=== PATIENT | female | born 1975 ===

== ENCOUNTER 2020-10-10 15:57 | Outpatient (REF) | payer OTHER, SELFPAY ==
[2020-10-10 16:41] LABS: COVID-19 Test Negative (Negative); IDNOW Serial# 55D5AD1C
== END 2020-10-10 15:58 | disposition home or self-care (01) ==
LOC: HO.EMPCOV 15:57
PROVIDERS: PCP Family Medicine; Visit Provider Internal Medicine
DX: Z20.822 Contact with and (suspected) exposure to COVID-19 (principal)
CPT/HCPCS: 36415; 87635; C9803

== ENCOUNTER 2020-10-16 06:45 | Outpatient (REF) | payer OTHER, SELFPAY ==
[2020-10-16 07:16] LABS: COVID-19 Test Negative (Negative); IDNOW Serial# 55D5AD1C
== END 2020-10-16 06:46 | disposition home or self-care (01) ==
LOC: HO.EMPCOV 06:45
PROVIDERS: Visit Provider Internal Medicine
DX: Z20.822 Contact with and (suspected) exposure to COVID-19 (principal)
CPT/HCPCS: 36415; 87635; C9803

== ENCOUNTER 2020-12-17 07:33 | Outpatient (REF) | payer OTHER, SELFPAY ==
[2020-12-17 07:51] LABS: COVID-19 Test Negative (Negative); IDNOW Serial# 55D5AD1C
== END 2020-12-17 07:34 | disposition home or self-care (01) ==
LOC: HO.EMPCOV 07:33
PROVIDERS: Visit Provider Internal Medicine
DX: Z20.822 Contact with and (suspected) exposure to COVID-19 (principal)
CPT/HCPCS: 36415; 87635; C9803

== ENCOUNTER 2021-02-18 08:38 | Outpatient (REF) | payer OTHER, SELFPAY ==
[2021-02-18 09:10] LABS: COVID-19 Test Negative (Negative)
== END 2021-02-18 08:39 | disposition home or self-care (01) ==
LOC: HO.EMPCOV 08:38
PROVIDERS: Visit Provider Internal Medicine
DX: Z20.822 Contact with and (suspected) exposure to COVID-19 (principal)
CPT/HCPCS: 36415; 87635; C9803

== ENCOUNTER 2023-03-21 07:22 | Outpatient (REF) | payer MEDICAID, SELFPAY ==
--- NOTE | ~2023-03-21 | MM_ITS ---
EXAMINATION: MM SCREENING DIGITAL BREAST TOMOSYNTHESIS, BILATERAL CLINICAL INFORMATION: Screening. Asymptomatic. No prior mammography. Age 47. No known family history breast cancer. The lifetime risk of breast cancer based on the Tyrer-Cuzick Model is 8%. COMPARISON: None (current study represents initial baseline exam). TECHNIQUE: Digital breast tomosynthesis is performed in both the craniocaudal and mediolateral oblique views along with computer-aided detection (CAD). Synthesized 2D images are generated from the tomosynthesis. FINDINGS: The breasts are heterogeneously dense, which may obscure small masses (ACR BI-RADS breast composition Category c). Left breast shows no mass or architectural abnormality. Neither breast shows abnormal calcifications. The bilateral axilla and skin contours are unremarkable. Right breast has an oval benign-appearing circumscribed nodule approximately 0.8 x 0.6 cm, central 6:00 position, around 7 cm from nipple. This may represent a cyst. Patient will be recalled for additional targeted ultrasound to fully characterize baseline appearance. MM/MM tomosynthesis screening BI IMPRESSION: Right: -Circumscribed nodule 0.8 cm central 6:00 position, possibly a cyst. Left: -No mammographic evidence of malignancy. ASSESSMENT: BI-RADS 0: Incomplete - Need Additional Imaging Evaluation RECOMMENDATION: 1. Targeted ultrasound right breast. 2. Radiology department staff will contact the patient for additional imaging. This patient's information was entered into a reminder system with a target due date for their next mammogram.
== END 2023-03-21 07:23 | disposition home or self-care (01) ==
LOC: HO.MAMMO 07:22
PROVIDERS: PCP Registered Nurse; Visit Provider Registered Nurse
DX: Z12.31 Encounter for screening mammogram for malignant neoplasm of breast (principal)
CPT/HCPCS: 77063; 77067

== ENCOUNTER 2023-03-26 07:54 | Outpatient (REF) | payer MEDICAID, SELFPAY ==
--- NOTE | ~2023-03-26 | US_ITS ---
EXAMINATION: US DIAGNOSTIC ULTRASOUND BREAST, RIGHT CLINICAL INFORMATION: Recall from baseline mammography for circumscribed nodule 6:00 right breast under 1 cm. COMPARISON: Baseline mammography 03/21/2023. TECHNIQUE: Ultrasound right breast is targeted to the central 6:00 position using grayscale imaging and color Doppler without and with harmonics. FINDINGS: There is an incidental simple cyst 6:00 position 6 cm from nipple measuring approximately 0.7 x 0.5 cm. There is increased through-transmission of sound. Margins are smooth. No associated color flow. No solid mass or architectural abnormality. Results are discussed with the patient at time of visit. US/US breast RT limited IMPRESSION: - Incidental simple cyst mid 6:00 position measuring 0.7 cm. ASSESSMENT: BI-RADS 2: Benign RECOMMENDATION: Routine annual mammography screening. This patient's information was entered into a reminder system with a target due date for their next mammogram.
== END 2023-03-26 07:55 | disposition home or self-care (01) ==
LOC: HO.MAMMO 07:54
PROVIDERS: Visit Provider Registered Nurse
DX: N63.15 Unspecified lump in the right breast, overlapping quadrants (principal)
CPT/HCPCS: 76642

== ENCOUNTER 2024-02-23 16:17 | Emergency (ER) | payer MEDICAID, SELFPAY ==
--- NOTE | ~2024-02-23 | XR_ITS ---
EXAMINATION: XR CHEST CLINICAL INFORMATION: Reason for Exam chest pain / pressure COMPARISON: Chest radiograph 03/23/2019 TECHNIQUE: 2 views of the chest FINDINGS: Lines and tubes: None. Clear lungs. No pleural effusion. No pneumothorax. Normal cardiomediastinal silhouette. Remote left rib fracture deformities, unchanged. XR/XR chest 2V IMPRESSION: * Clear lungs.
--- NOTE | 2024-02-23 16:19 | ECG_ITS ---
Test Reason : CHEST PAIN Blood Pressure : / mmHG Vent. Rate : 087 BPM Atrial Rate : 087 BPM P-R Int : 158 ms QRS Dur : 086 ms QT Int : 354 ms P-R-T Axes : 064 039 064 degrees QTc Int : 425 ms Normal sinus rhythm with sinus arrhythmia Normal ECG When compared with ECG of 28-DEC-2018 20:42, No significant change was found Referred By: Bambi Silva Electronically Signed By:ARLEY CARLSON
[2024-02-23 16:57] VITALS: BP 131/75; PULSE 82; RESP 18; TEMP 36.6; O2SAT 100; BMI 30.8
--- NOTE | 2024-02-23 16:57 | ED.GENADULT ---
HPI - General Adult General Chief complaint: Arrhythmia/Palpitations Stated complaint: chest pain/both arms tingle/feet swollen/sob Source: patient Mode of arrival: ambulatory Limitations: no limitations History of Present Illness ED Provider: Bambi Silva PA-C HPI narrative: Patient is a 48 year old assigned female at with no reported medical history presenting to the emergency department today with palpitations and chest pain. Patient states that she had an episode last week where her heart was racing and she felt intense squeezing in her chest. Patient states that 15 minutes ago she had another episode that was similar. Patient denies any dizziness, lightheadedness, abdominal pain, nausea, vomiting, fever, chills, blurry vision, double vision, loss of vision, difficulty breathing, shortness of breath, back pain, night sweats, pain with urination, increased urinary frequency, increased urinary urgency, blood in her urine or stool, syncope or a near syncopal episode, recent trauma or falls, bowel incontinence, bladder incontinence, bowel retention, bladder retention, or any other complaints at this time. Relieving factors: none Exacerbating factors: none Associated symptoms: chest pain Treatments prior to arrival: none Related Data Allergies Allergy/AdvReac Type Severity Reaction Status Date / Time No Known Allergies Allergy Verified 02/23/24 16:58 Review of Systems Constitutional: Constitutional: Reports no additional constitutional complaints, Denies chills, Denies fever(s) and Denies night sweats Eyes: Eyes: Reports no additional eye complaints, Denies blurry vision, Denies change in vision, Denies diplopia, Denies eye discharge, Denies loss of vision and Denies eye pain ENT: Denies dizziness Cardiovascular: Cardiovascular: Reports no additional cardiovascular complaints, Reports chest pain, Denies lightheadedness, Denies Loss of Consciousness and Denies dyspnea Respiratory: Respiratory: Reports no additional respiratory complaints and Denies dyspnea Gastrointestinal: Gastrointestinal: Reports no additional gastrointestinal complaints, Denies abdominal pain, Denies melena, Denies hematochezia, Denies change in bowel habits and Denies change in stool character Genitourinary: Genitourinary: Denies hematuria, Denies urinary frequency, Denies dysuria, Denies urinary incontinence, Denies urinary hesitancy and Denies urinary urgency Musculoskeletal: Musculoskeletal: Reports no additional musculoskeletal complaints, Denies numbness and Denies tingling Neurologic: Denies dizziness, Denies loss of vision, Denies numbness and Denies tingling Psychiatric: Psychiatric: Reports no additional psychiatric complaints Endocrine: Endocrine: Reports no additional endocrine complaints Hematologic/Lymphatic: Hematologic/Lymphatic: Reports no additional hematologic/lymphatic complaints Allergic/Immunologic: Allergic/Immunologic: Reports no additional allergic/immunologic complaints [facility] Past Medical History Attestation statement: The following information was validated with the patient. Source: old records reviewed and nursing notes reviewed Social History Social History Advance Directives: No Advance Directives Information Provided: No Do you have a plan to hurt others: No Plan Physical Exam ED Vital Signs: Vital Signs - 24 hr 02/23/24 16:57 Temperature 97.8 F Pulse Rate 82 Respiratory Rate 18 Blood Pressure 131/75 Pulse Oximetry 100 Oxygen Delivery Method Room Air BMI result Body Mass Index 30.8 Const General: cooperative, no acute distress, alert and awake Nutritional Appearance: well nourished Orientation/consciousness: patient oriented x3 Limitations: no limitations HENMT Head: Yes normal to inspection and Yes atraumatic Ears: hearing grossly normal bilaterally and external ears normal General nose exam: Normal external nose present, no nasal discharge noted and no epistaxis Face and sinus: Yes normal facial exam, No abrasion and No laceration Mouth: Normal oral and palatal mucosa present, no drooling and no muffled voice Eyes General: appearance normal, both eyes and all related structures Periorbital: periorbital findings normal Eyelids: Yes eyelids normal Conjunctivae: conjunctivae normal Pupils: Equal, round and reactive pupils present EOM: EOMs intact bilaterally Neck Neck: Yes normal visual inspection, Yes full ROM and Yes no lymphadenopathy Chest Chest palpation & inspection: normal inspection of the chest Resp Effort & Inspection: normal respiratory effort and able to speak in complete sentences GI Inspection: Yes normal to inspection Neuro General: patient oriented x3 and moves all extremities Cranial nerves: Yes Equal, round and reactive pupils present Cognition (Neuro): normal cognition Motor exam (neuro): 5/5 motor strength present throughout Sensory Exam: Normal double simultaneous stimulation for sensation Coordination: [id number] test normal Extrem General: Yes normal to inspection, Yes full ROM and Yes capillary refill normal Psych Appearance: grossly normal Mental Status: mental status grossly normal Affect: normal affect Attitude: cooperative Thought process: Normal thought process present Thought content: Normal thought content present Insight: Good insight present (Psych) Course Course Course Narrative: RME performed by Bambi Silva PA-C. Patient is a 48 year old assigned female at presenting to the emergency department with bilateral lower extremity swelling, feeling as thought her chest is being squeezed, dizziness, shortness of breath, and feeling like she was going to pass out. Detailed physical exam and review of systems are deferred to the change booth attendant. EKG, labs, imaging, and swabs ordered. Patient placed back in the waiting room pending room availability and results. Medical Decision Making Medical Decision Making MDM Narrative: Patient is a 48 year old assigned female at with no reported medical history presenting to the emergency department today with chest pain and palpitations. Patient's limited physical exam performed in triage was unremarkable. Patient's blood work was unremarkable. Patient's EKG was unremarkable. Patient's chest x-ray showed no acute process. Patient left the department without completing treatment. Patient left the department before myself or any of the other emergency department clinicians could explain to or review with the patient; physical exam findings, test results, need or lack there of for additional testing, need or lack there of for a procedure to be performed, need or lack there of for hospital admission / transfer, need or lack there of for prescription medication, treatment options, or a treatment plan. Differential Diagnosis Differential Diagnoses: The differential diagnosis associated with the presentation includes Chest pain Palpitations Anxiety NSTEMI STEMI Admission/Observation Consideration of admission/observation: Escalation of care including admission/observation considered Patient would have been admitted to the hospital had she completed her work up and it had any findings where hospital admission was appropriate, her clinical presentation warranted hospital admission, had myself or any other emergency supervisor throwing department had the ability to discuss need or lack there of for hospital admission, and the patient hadn't left the department without completing treatment. Lab Data [facility] Lab Attestation statement: I reviewed the patient's lab results. My interpretation of these results are in the MDM Rationale portion of this note. 02/23/24 17:20 02/23/24 17:20 Labs: Lab Results 02/23/24 Range/Units 17:20 WBC 11.5 H (4.8-10.8) X10*3/uL RBC 4.52 (4.20-5.50) X10*6/uL Hgb 14.6 (12.0-16.0) g/dl Hct 41.6 (37.0-47.0) % MCV 92.0 (80.0-98.0) fL MCH 32.3 (27.0-33.0) pg MCHC 35.1 H (31.0-35.0) g/dl RDW 11.9 (11.0-16.0) % Plt Count 358 (160-400) X10*3/uL MPV 9.1 L (9.4-12.3) fL Immature Gran % (Auto) 0.3 (0.0-0.4) % Neut % (Auto) 55.9 (45-73) % Lymph % (Auto) 35.4 (20-40) % [place] % (Auto) 5.5 (2-11) % Eos % (Auto) 2.6 (0-4) % Baso % (Auto) 0.3 (0-2) % Lymph # (Auto) 4.1 (1.2-4.9) X10*3/uL [place] # (Auto) 0.6 (0.1-1.2) X10*3/uL Eos # (Auto) 0.3 (0.0-0.4) X10*3/uL Baso # (Auto) 0.0 (0.0-0.2) X10*3/uL Abs Immat Gran (auto) 0.03 (0.00-0.03) X10*3/uL Absolute Neuts (auto) 6.4 (2.0-8.3) x10*3/uL Absolute Nucleated RBC 0.000 (0.0-0.012) X10*3/uL Nucleated RBC % (auto) 0.0 (0.0-0.2) /100WBC PT 11.7 (11.1-13.3) SEC INR 1.0 (0.9-1.1) APTT 30.8 (26.0-36.8) SEC Sodium 142 (135-145) mmol/L Potassium 3.5 (3.3-5.1) mmol/L Chloride 108 (96-108) mmol/L Carbon Dioxide 26 (22-29) mmol/L Anion Gap 12 (12-20) BUN 11 (9-16) mg/dL Creatinine 0.82 (0.5-1.4) mg/dL Estim Creat Clear Calc 85.6 Estimated GFR > 60 Random Glucose 103 (60-115) mg/dL Calcium 9.5 (8.4-10.2) mg/dL Magnesium 2.1 (1.6-2.6) mg/dL Total Bilirubin 0.2 (0.0-1.0) mg/dL AST 16 (5-31) U/L ALT 17 (0-31) U/L Alkaline Phosphatase 73 (39-117) U/L Troponin I High Sens < 2.7 (<3.5-17.0) ng/L Total Protein 7.2 (6.5-8.0) g/dL Albumin 4.1 (3.5-5.0) g/dL TSH 1.05 (0.32-4.0) uIU/mL Beta HCG, Quant < 2 mIU/mL Influenza Type A (PCR) NEGATIVE (Negative) Influenza Type B (PCR) NEGATIVE (Negative) RSV RNA Qual (PCR) NEGATIVE (Negative) SARS-CoV-2 RNA (RT-PCR) NEGATIVE (Negative) Independent Interpretation I performed an independent interpretation of an: EKG and Plain X-Ray Interpretation: My interpretation is in agreement with the radiologist's impression of this imaging study. EXAMINATION: XR CHEST CLINICAL INFORMATION: Reason for Exam chest pain / pressure COMPARISON: Chest radiograph 03/23/2019 TECHNIQUE: 2 views of the chest FINDINGS: Lines and tubes: None. Clear lungs. No pleural effusion. No pneumothorax. Normal cardiomediastinal silhouette. Remote left rib fracture deformities, unchanged. XR/XR chest 2V IMPRESSION: * Clear lungs. Dictated By: Shirley Boss MD Signed By: Electronically signed by Shirley Boss MD 02/23/24 1828 Vent. Rate: 087 BPM Atrial Rate: 087 BPM P-R Int: 158 ms QRS Dur: 086 ms QT Int: 354 ms P-R-T Axes: 064 039 064 degrees QTc Int: 425 ms Normal sinus rhythm with sinus arrhythmia Normal ECG When compared with ECG of 28-DEC-2018 20:42, No significant change was found DD/ 1626 Radiology Impression Discussion of test interpretation with radiology: I have reviewed the radiologist's reading. Discharge Plan Discharge Clinical Impression: Palpitations, Chest pain Patient Disposition: Left W/O Completing Treatment Discharge Date/Time: 02/23/24 22:17
[2024-02-23 17:24] LABS: MANUAL DIFF FLAG NO
[2024-02-23 17:28] LABS: Basophils Percent Auto 0.3 % (0-2); Eosinophils Absolute Auto 0.3 X10*3/uL (0.0-0.4); Eosinophils Percent Auto 2.6 % (0-4); Hematocrit 41.6 % (37.0-47.0); Hemoglobin 14.6 g/dl (12.0-16.0); Imm Gran Abs Auto 0.03 X10*3/uL (0.00-0.03); Imm Gran Pct Auto 0.3 % (0.0-0.4); Lymphocytes Absolute Auto 4.1 X10*3/uL (1.2-4.9); Lymphocytes Percent Auto 35.4 % (20-40); Mean Corpuscular HGB Conc 35.1 g/dl (31.0-35.0); Mean Corpuscular Hemoglobin 32.3 pg (27.0-33.0); Mean Platelet Volume 9.1 fL (9.4-12.3); Monocytes Absolute Auto 0.6 X10*3/uL (0.1-1.2); Monocytes Percent Auto 5.5 % (2-11); Neutrophils Absolute Auto 6.4 x10*3/uL (2.0-8.3); Neutrophils Percent Auto 55.9 % (45-73); Platelet Count 358 X10*3/uL (160-400); Red Blood Count 4.52 X10*6/uL (4.20-5.50); Red Cell Distribution Width 11.9 % (11.0-16.0); White Blood Count 11.5 X10*3/uL (4.8-10.8)
[2024-02-23 17:35] LABS: Prothrombin Time 11.7 SEC (11.1-13.3)
[2024-02-23 17:38] LABS: Partial Thromboplastin Time 30.8 SEC (26.0-36.8)
[2024-02-23 17:50] LABS: Alanine Aminotransferase 17 U/L (0-31); Albumin Level 4.1 g/dL (3.5-5.0); Alkaline Phosphatase 73 U/L (39-117); Anion Gap 12 (12-20); Aspartate Amino Transferase 16 U/L (5-31); Bilirubin Total 0.2 mg/dL (0.0-1.0); Blood Urea Nitrogen 11 mg/dL (9-16); Calcium 9.5 mg/dL (8.4-10.2); Carbon Dioxide 26 mmol/L (22-29); Chloride 108 mmol/L (96-108); Creatinine Clr Calc Pharmacy 85.6; Estimated Glomerular Filt Rate > 60; Glucose Random 103 mg/dL (60-115); Magnesium 2.1 mg/dL (1.6-2.6); Potassium 3.5 mmol/L (3.3-5.1); Sodium 142 mmol/L (135-145); Total Protein 7.2 g/dL (6.5-8.0)
[2024-02-23 17:53] LABS: Troponin-I High Sensitivity < 2.7 ng/L (<3.5-17.0)
[2024-02-23 18:07] LABS: HCG Quantitative < 2 mIU/mL; TSH reflex Free T4 1.05 uIU/mL (0.32-4.0)
[2024-02-23 18:08] LABS: Influenza A PCR NEGATIVE (Negative); Influenza B PCR NEGATIVE (Negative); Resp Syncy Virus RNA Qual PCR NEGATIVE (Negative); SARS COV2 PCR INHOUSE NEGATIVE (Negative)
--- NOTE | 2024-02-23 20:30 | PC.NURSE ---
No answer in the WR @ 2029.
== END 2024-02-23 22:17 | disposition left against medical advice (07) ==
LOC: HO.ED 22:10
PROVIDERS: Physician Assistant Medical; Emergency Provider Emergency Medicine
DX: R00.2 Palpitations (principal); R07.9 Chest pain, unspecified; Z03.818 Encounter for observation for suspected exposure to other biological agents ruled out
CPT/HCPCS: 0241U; 71046; 80053; 83735; 84443; 84484; 84702; 85025; 85610; 85730; 93005; 99283

== ENCOUNTER → 2024-02-23 16:19 | Outpatient (BNV) | payer MEDICAID, SELFPAY | PROVIDERS: Emergency Provider Emergency Medicine; Visit Provider Internal Medicine | DX: R07.9 Chest pain, unspecified (principal) | CPT/HCPCS: 93010 ==

== ENCOUNTER 2024-06-02 12:50 | Outpatient (AMB) | payer MEDICAID, SELFPAY ==
--- NOTE | 2024-06-02 12:51 | A.OFFVIS_ITS ---
Vital Signs 06/02/24 12:52 Height 5 ft 4 in Intake Visit Reasons: Hemorrhoids Intake Note: This patient presents for hemorrhoids, Pt c/o; Onset 3 weeks, reports pain, reports no rectal bleeding. 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 She says that she has had this lump outside her anus for about 3 weeks now. She says that she was not aware about having hemorrhoids in the past. She says that this lump was tender and painful at that time. She does not notice any blood per rectum She says that this ?lump? has persisted. However, she does notice that her pain has significantly improved. [facility] Medical History Thrombosed external hemorrhoid Surgical History H/O tubal ligation H/O section Review of Systems Const Denies chills and Denies fever(s) Card Denies chest pain, Denies dyspnea and Denies dyspnea on exertion Resp Denies cough, Denies dyspnea and Denies dyspnea on exertion GI Denies hematochezia and Denies change in bowel habits Denies hematuria Musc Denies back pain and Denies limited range of motion Neuro Denies focal weakness and Denies convulsions Psych Denies depression and Denies mood swings Physical Exam Const General: comfortable and no acute distress Orientation/consciousness: patient oriented x3 Neck Neck: Yes no lymphadenopathy Resp Auscultation: clear to auscultation bilaterally Cardio Rhythm: regular rhythm GI Other: Rectal exam shows a thrombosed external hemorrhoid about 1.2 cm on the left Palpation (GI): Soft to palpation, nontender and no guarding Neuro General: patient oriented x3 Office Procedures Anoscopy He was in yaw-knife position. The anoscope was gently inserted. A full examination of the anal canal was done. There were no significant anal canal lesions. There was no ulceration, no fissure, no bleeding He has no induration on digital exam There was note of a thrombosed external hemorrhoid, about 1.2 cm on the left distal anoderm [id number] Assessment & Plan Assessment & Plan (1) Thrombosed external hemorrhoid: Code(s): K64.5 - Perianal venous thrombosis Category: Medical Plan: She has this lump outside her anus and examination reveals a thrombosed external hemorrhoid. I told her that I would expect this to resorb on its own. I have instructed her to continue doing hot Sitz baths. She can take NSAIDs p.r.n. for pain as this will help with inflammation as well I will see her again in the office in about 2 weeks. She does understand the option of hemorrhoidectomy if this does not improve She is to avoid straining and constipation as well. She is comfortable with the plan Coding Level of Care Code New Pt Level 3 (38843) Diagnoses Thrombosed external hemorrhoid K64.5 CPT Codes Details - CPT: 81631-[id number] ([id number])
== END 2024-06-02 14:09 | disposition home or self-care (01) ==
PROVIDERS: PCP Registered Nurse; Visit Provider Surgery
DX: K64.8 Other hemorrhoids (principal)
CPT/HCPCS: 46600; 99203

== ENCOUNTER → 2024-06-02 12:50 | Outpatient (BNVA) | payer MEDICAID, SELFPAY | PROVIDERS: PCP Registered Nurse; Visit Provider Surgery | DX: K64.5 Perianal venous thrombosis (principal) | CPT/HCPCS: 46600; 99202 ==

== ENCOUNTER 2024-06-14 08:41 | Outpatient (REF) | payer MEDICAID, SELFPAY ==
--- NOTE | ~2024-06-14 | MM_ITS ---
EXAMINATION: MM SCREENING DIGITAL BREAST TOMOSYNTHESIS, BILATERAL CLINICAL INFORMATION: Screening. Asymptomatic. COMPARISON: Mammography: Comparison is made with available priors TECHNIQUE: Digital breast mammography with tomosynthesis is performed in both the craniocaudal and mediolateral oblique views along with computer-aided detection (CAD). FINDINGS: There are scattered areas of fibroglandular density (ACR BI-RADS breast composition Category b). Bilateral circumscribed oval masses which wax and wane consistent with benign fibrocystic changes and cysts. Some are demonstrated to be simple cyst on prior ultrasounds. There are no significant masses, abnormal calcifications, or other abnormalities. MM/MM tomosynthesis screening BI IMPRESSION: No mammographic evidence of malignancy. ASSESSMENT: BI-RADS BI-RADS 2 - Benign Findings RECOMMENDATION: Routine annual mammography screening. 1 year F/U This examination should not preclude the clinical evaluation of a suspicious palpable abnormality. This patient's information was entered into a reminder system with a target due date for their next mammogram. Electronically signed by: Jasmin Koo DO 06/27/2024 03:54 PM EDT
== END 2024-06-14 08:42 | disposition home or self-care (01) ==
LOC: HO.MAMMO 08:41
PROVIDERS: PCP Registered Nurse; Visit Provider Registered Nurse
DX: Z12.31 Encounter for screening mammogram for malignant neoplasm of breast (principal)
CPT/HCPCS: 77063; 77067

== ENCOUNTER → 2024-06-14 08:45 | Outpatient (BNV) | payer MEDICAID, SELFPAY | PROVIDERS: PCP Registered Nurse; Visit Provider Internal Medicine | DX: Z12.31 Encounter for screening mammogram for malignant neoplasm of breast (principal) | CPT/HCPCS: 77063; 77067 ==

== ENCOUNTER 2024-06-29 08:49 | Outpatient (AMB) | payer MEDICAID, SELFPAY ==
--- NOTE | 2024-06-29 08:53 | A.OFFVIS_ITS ---
Vital Signs 06/29/24 08:59 Height 5 ft 4 in Weight 179 lb BMI 30.7 BP 110/56 L Blood Pressure Location Rt brachial Position Sitting Pulse 80 Intake Visit Reasons: s/p anoscopy 3 week follow up Intake Note: This patient presents for three week follow-up for hemorrhoids. Pt c/o; reports feels improvements since last visit. 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 I had advised her on doing hot Sitz baths and anti-inflammatories. She now says she feels much better. She says that her large external hemorrhoid has decreased in size significantly. She is able to sit down comfortably. She denies any severe pain. [facility] Medical History Thrombosed external hemorrhoid Surgical History H/O tubal ligation H/O section Review of Systems Const Denies chills and Denies fever(s) Card Denies chest pain Resp Denies cough GI Denies abdominal pain Physical Exam Vital Signs: Last Vital Signs Pulse 80 06/29/24 08:59 BP 110/56 L 06/29/24 08:59 BMI result Body Mass Index 30.7 Const General: comfortable and no acute distress Resp Effort & Inspection: normal respiratory effort GI Other: Rectal exam shows a small external hemorrhoid on the left and a smaller 1 on the right with no tenderness, no inflammatory changes Assessment & Plan Assessment & Plan (1) Thrombosed external hemorrhoid: Code(s): K64.5 - Perianal venous thrombosis Category: Medical Plan: This has improved significantly. She does not have any significant tenderness anymore nor pain. The size has decreased markedly. I explained to her that if she has problems or concerns with regards to her hemorrhoids down the line, she is welcome to come back to the office to be re- evaluated. She is comfortable with this plan. I also advised her on avoiding straining and constipation. Coding Level of Care Code Est Pt Level 2 (56656) Diagnoses Thrombosed external hemorrhoid K64.5
[2024-06-29 08:59] VITALS: BP 110/56; PULSE 80; BMI 30.7
== END 2024-06-29 09:20 | disposition home or self-care (01) ==
PROVIDERS: PCP Registered Nurse; Referring Provider Registered Nurse; Visit Provider Surgery
DX: K64.5 Perianal venous thrombosis (principal)
CPT/HCPCS: 99212

== ENCOUNTER → 2024-06-29 08:49 | Outpatient (BNVA) | payer MEDICAID, SELFPAY | PROVIDERS: PCP Registered Nurse; Visit Provider Surgery | DX: K64.5 Perianal venous thrombosis (principal) | CPT/HCPCS: 99212 ==

== ENCOUNTER 2024-07-28 11:02 | Outpatient (AMB) | payer MEDICAID, SELFPAY ==
--- NOTE | 2024-07-28 11:05 | A.OFFVIS_ITS ---
Vital Signs 07/28/24 11:11 Height 5 ft 4 in Weight 185 lb BMI 31.8 BP 115/55 L Blood Pressure Location Rt brachial Position Sitting Pulse 79 Intake Visit Reasons: colon CA screening Intake Note: This patient presents for colonoscopy screening. Pt c/o; reports never had a colonoscopy before, reports no rectal bleeding or pain. 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 She denies any significant GI complaints. She denies a family history of colon cancer. He has never had any colonoscopy in the past. [facility] Medical History (Updated 07/28/24 @ 11:19 by Enmanuel Zambrano MD) Colon cancer screening History of pulmonary embolus (PE) (~03/2010) Nicotine dependence, cigarettes, uncomplicated Thrombosed external hemorrhoid Surgical History History of tubal ligation History of Social History (Updated 07/28/24 @ 11:13 by NAKIA Allen) Alcohol intake: never Patient Tobacco Use Status: Never used Tobacco Review of Systems Const Denies chills and Denies fever(s) Card Denies chest pain, Denies dyspnea and Denies dyspnea on exertion Resp Denies cough, Denies dyspnea and Denies dyspnea on exertion GI Denies hematochezia and Denies change in bowel habits Denies hematuria Musc Denies back pain and Denies limited range of motion Neuro Denies focal weakness and Denies convulsions Psych Denies depression and Denies mood swings Physical Exam Vital Signs: Last Vital Signs Pulse 79 07/28/24 11:11 BP 115/55 L 07/28/24 11:11 BMI result Body Mass Index 31.8 Const General: comfortable and no acute distress Orientation/consciousness: patient oriented x3 Neck Neck: Yes no lymphadenopathy Resp Auscultation: clear to auscultation bilaterally Cardio Rhythm: regular rhythm GI Palpation (GI): Soft to palpation, nontender and no guarding Neuro General: patient oriented x3 Assessment & Plan Assessment & Plan (1) Colon cancer screening: Code(s): Z12.11 - Encounter for screening for malignant neoplasm of colon Category: Medical Plan: I explained to her the technique of colonoscopy for screening. I reviewed the risks including but not limited to bleeding, perforation, as well as the benefits and alternatives. She understands and wants to proceed. She seems to present with average risk for colon cancer. Coding Level of Care Code Est Pt Level 3 (42818) Diagnoses Colon cancer screening Z12.11
[2024-07-28 11:11] VITALS: BP 115/55; PULSE 79; BMI 31.8
== END 2024-07-28 11:41 | disposition home or self-care (01) ==
PROVIDERS: PCP Registered Nurse; Visit Provider Surgery
DX: Z12.11 Encounter for screening for malignant neoplasm of colon (principal)
CPT/HCPCS: 99213

== ENCOUNTER → 2024-07-28 11:02 | Outpatient (BNVA) | payer MEDICAID, SELFPAY | PROVIDERS: PCP Registered Nurse; Visit Provider Surgery | DX: Z12.11 Encounter for screening for malignant neoplasm of colon (principal) | CPT/HCPCS: 99212 ==

== ENCOUNTER 2024-08-12 10:12 | Outpatient (AMB) | payer MEDICAID, SELFPAY ==
--- NOTE | 2024-08-12 07:42 | MHC.OFFVIS ---
Intake Visit Reasons: Current Smoker Allergies No Known Allergies Allergy (Verified 07/28/24 11:12) HPI HPI Current Smoker: Details: Initial visit for this 49yo smoker with a 45PYH. Patient started smoking at age 12 for 37 years at 1-1.5ppd. Now at 1/2ppd. . Denies marijuana use. Denies second hand smoke exposure. Denies exposure to chemicals or substances like asbestos. . Denies known family history of lung cancer. Denies personal history of cancers. Denies chest CT in last year. . Denies recent travel outside the [place]. Denies recent recent hospitalization for respiratory issues. Reports testing positive for COVID. Denies receiving COVID Vaccine. . Recently treated for persumptive Whooping cough. Completed antibiotics. 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 Reports chronic history of multiple episodes of pneumonia. Denies fever, chills, new/worsening cough, hemoptysis, hoarseness or dysphagia. Denies significant chest pain, significant dyspnea or unintentional weight loss. Patient Lung Cancer Screening Questionnaire reviewed with patient by provider. . Shared Decision Making Completed. Patient meets criteria. Discussed in detail with patient, the risk vs benefit of LDCT screening. Patient consents to proceed with scan. Discussed smoking cessation. [facility] Medical History (Updated 08/12/24 @ 09:47 by Bobbi Holcomb PA-C) Colon cancer screening History of pulmonary embolus (PE) (~03/2010) Nicotine dependence, cigarettes, uncomplicated Thrombosed external hemorrhoid Surgical History History of tubal ligation History of Social History (Updated 08/12/24 @ 09:48 by Bobbi Holcomb PA-C) Alcohol intake: never Patient Tobacco Use Status: Current everyday Tobacco user Cigarettes Per Day: 10 Years Smoked: (onset 12yo, 1-1.5ppd x 37yrs, now1/2ppd - 45pyh) Telehealth Telehealth Telehealth Platform: Telephone Location of provider rendering services: practice address Location of patient: address on file Patient Identification confirmed using: Name, : Yes Telehealth method: voice only Patient verbally consented to treatment: Yes Patient verbally consented to billing insurance company: Yes Patient informed of any privacy concerns related to visit: Yes Minutes spent on Phone/Video with Pt.: 15 Assessment & Plan Assessment & Plan (1) Nicotine dependence, cigarettes, uncomplicated: Comment: (onset 12yo, 1-1.5ppd x 37yrs, now1/2ppd - 45pyh) Code(s): F17.210 - Nicotine dependence, cigarettes, uncomplicated Category: Medical Plan: - SDM visit completed today in office. - Patient meets criteria for LDCT for lung cancer screening purposes and is asymptomatic. - Smoking cessation counseling offered. Patients can always call [phone]. - Will arrange for a LDCT scan of the chest for screening purposes at [facility]. - Risks, benefits, and alternatives were discussed in detail and the patient agrees to proceed. - Risks discussed include but are not limited to: radiation exposure, anxiety during testing and while awaiting results, false negatives, false positives and possibility of additional intervention such as further imaging or surgical procedures for benign disease. - Benefits are obviously detection of lung cancer at an early stage which can lead to improved outcomes. - Discussed the importance of screening program compliance with adherence to yearly LDCT scan as scheduled - or sooner interval scans for personalized screening regimen. - Discussed follow up plan. Our office will send a letter discussing results and if needed set up phone call and office visit based on CT findings. - Patient educated on results categorization and the management decisions for suspicious findings potentially found on the screening LDCT scan. Any patient with a Lung RADS score of 3 or 4 will be reviewed by a multidisciplinary team at [facility] to form a plan of action in regards to scan findings. - If further work up is warranted for a suspicious lung finding this will be followed by the Lung Cancer Screening program in conjunction with the Thoracic Surgery Department at [facility]. - A copy of the office note and LDCT will be sent to the patient's PCP - as well as documentation on any associated further plans of care. - Incidental findings on LDCT are the PCP's responsibility. These findings are indicated with an S finding on the LDCT Assessment. A note discussing the findings will be sent to the PCP who is then responsible for further management. - All questions answered.? Coding Level of Care Code Lung Cancer Screening G0296 Diagnoses Nicotine dependence, cigarettes, uncomplicated F17.210
== END 2024-08-12 10:12 | disposition home or self-care (01) ==
LOC: HO.HPS 10:12
PROVIDERS: PCP Registered Nurse; Visit Provider Physician Assistant Medical
DX: F17.210 Nicotine dependence, cigarettes, uncomplicated (principal)
CPT/HCPCS: G0296

== ENCOUNTER → 2024-08-12 10:12 | Outpatient (BNVA) | payer MEDICAID, SELFPAY | PROVIDERS: PCP Registered Nurse; Visit Provider Physician Assistant Medical | DX: F17.210 Nicotine dependence, cigarettes, uncomplicated (principal) | CPT/HCPCS: G0296 ==

== ENCOUNTER 2024-11-29 16:40 | Outpatient (REF) | payer MEDICAID, SELFPAY ==
--- NOTE | ~2024-11-29 | CT_ITS ---
CLINICAL HISTORY: F17.210 - Nicotine dependence, cigarettes, uncomplicated CT lung cancer screening (LDCT) Comparison: CR/SR - XR CHEST 2V - 02/23/24 17:02 EDT Technique: Axial CT images of the chest using low-dose technique. Referring provider counseled the patient on shared decision-making for LDCT screening. Additional counseling was provided on smoking cessation. Effective radiation dose total: DLP 38.3 mGycm, CTDIvol 1.1 mGy. Findings: Lung: Calcified granuloma in the posterior right lung apex. Mild biapical scarring. Few regions of minimal subpleural scarring both lungs. No discrete lung nodule. No appreciable endobronchial nodule. No consolidation, pleural effusion or pneumothorax. Thoracic inlet intact. No apparent thyroid nodule. No adenopathy. Heart size normal. No coronary artery calcification. No acute process evident upper abdomen. Impression: Lung rads 1. Normal. Management: Continue annual screening. Category 1: Normal; continue annual screening Category 2: Benign appearance or behavior, continue annual screening Category 3: Probably benign, [address] recommended Category 4A: Suspicious, [address] recommended; may consider PET/CT Category 4B: Suspicious, Additional diagnostics and/or tissue sampling recommended Category 4X: Suspicious, Additional diagnostics and/or tissue sampling recommended Category 0: Recalls (incomplete screen due to Incomplete coverage, Noise, Respiratory motion, Expiration, Obscured by acute abnormality) This document has been electronically signed by: Uche Drew MD on 11/30/2024 13:04:41
--- OUTSIDE RECORDS SUMMARY | 2024-11-29 20:17 | XMS_ITS | Clinical Summary ---
Author Organization [employer] Address [address] [place] [address] Care Team Providers Care Wet Sander Name Role Phone Breana Raphael FDIEL Primary Care Provider [phone] Allergies No known active allergies Medications amoxicillin (Amoxil) 500 MG capsule Take 1 tab po bid for 10 days 20 capsule 4 Active nicotine (Nicoderm CQ) 14 MG/24HR patchIndications: Cigarette nicotine dependence without complication Place 1 patch on the skin 1 (one) time each day at the same time. 42 patch 4 Active albuterol 108 (90 Base) MCG/ACT inhaler Inhale 2 puffs every 4 (four) hours if needed for wheezing or shortness of breath. 18 g 1 4 09/06/20 25 Active azithromycin (Zithromax Z-Fritz) 250 MG tablet Take 2 tablets once on day 1, then 1 tablet 1x/day for 4 days. 6 tablet 4 Active acetaminophen (Tylenol) 500 MG tablet Take 2 tablets (1,000 mg) by mouth every 6 (six) hours if needed for moderate pain or fever. 40 tablet 4 Active Active Problems Problem Noted Date Diagnosed Date Persistent dry cough 07/19/2024 Assessment & Plan (07/19/2024 9:13 AM EDT): Flu, COVID and Strep negative. Episodes of coughing fits, with cough lasting >3 weeks. Likely exacerbated by tobacco dependence. -No evidence of respiratory distress. Symptoms mild. -No evidence of dehydration. -Supportive care advised. -Isolation recommendations discussed. -ER precautions discussed. -Seek medical attention for worsening symptoms. Bacterial sinusitis 07/19/2024 Assessment & Plan (07/19/2024 9:16 AM EDT): Moderate congestion and runny nose with onset over a month ago with recent recurrence. Likely bacterial sinusitis based on exam and sxs. Will treat with -amoxicillin 500mg bid for 10 days -droplet precautions discussed -supportive care discussed -ER precautions given Healthcare maintenance 06/24/2024 Overview (06/26/2024): Last PE: 06/24/24 Colonoscopy: Referral to Dr. Zambrano at [facility] in May 2024 Pap: Last ~2009, denies hx of abnormal paps. Due Mammo: February 2023 (simple cyst), annual screening LDCT: ordered May 2024 Nicotine dependence 09/07/2017 Assessment & Plan (07/19/2024 9:17 AM EDT): Discussed and encouraged decreasing smoking. -recommended chantix. Assessment & Plan (06/26/2024 5:46 PM EDT): -Cigg/day: 10 cigg/day (max 30 cigg/day) -Age started: 12 y/o -Total years smoking: approx 37 years -Pack year history: > 20 -Encouraged smoking cessation resources, NRT patches were not helpful for her in the past -Referred to [facility] LDCT for lung CA screening 06/24/24 Assessment & Plan (02/05/2023 11:09 AM EDT): ?? Typically 6-12 cigg/day (depends on stress level) ?? Discussed available smoking cessation resources through [facility] Encounters Date Type Department Care Team Description 09/06/2024 10:00 AM EST Office Visit [facility] [address] [place] [address] Douglas Boyd MD Influenza-like symptoms (Primary Dx); Viral URI from Last 3 Months Immunizations Name Administration Dates Next Due Hep B, adult 02/09/2006 TD (adult), 2 Lf tetanus tox oid, preservative free, adsorbed 02/09/2006 Family History Medical History Relation Name Comments Schizophrenia Brother Diabetes Father Heart failure Paternal Grandmother Thyroid cancer Sister Relation Name Status Comments Brother Father Paternal Grandmother Sister Social History Tobacco Use Types Packs/Day Years Used Date Smoking Tobacco: Every Day Cigarettes Smokeless Tobacco: Never Tobacco Cessation:Ready to Q uit: Not Asked; Counseling Given: Not Answered Alcohol Use Standard Drinks/Week Comments Yes 0 (1 standard drink = 0.6 oz pur e alcohol) Occasionally Depression Answer Date Recorded Patient Health Questionnaire-9 Score 11 06/24/2024 Patient Health Questionnaire-9 Score 11 06/24/2024 Last PHQ-9: Questionnaire Data Not on file 0 06/24/2024 Housing Stability Answer Date Recorded What is your housing situation today? I have housing today, but I am worried about losing housing in the future 06/24/[address] you li ve. Do you have problems with any of the following? None of the above 06/24/2024 Food Insecurity Answer Date Recorded Within the past 12 months, y ou worried that your food would run out before you got money to buy more: Often true 06/24/2024 Within the past 12 months,th e food you bought just didn't last and you didn't have enough money to get more: Often true Transportation Answer Date Recorded In the past 12 months, has l ack of transportation kept you from medical appts, meetings, work or from getting things needed for daily living? No 06/24/2024 Utilities Answer Date Recorded In the past 12 months, has t he electric, gas, oil or water company threatened to shut off services in your home? I am not sure 06/24/2024 Depression Answer Date Recorded Patient Health Questionnaire-2 Score 6 06/24/2024 Internet Access Answer Date Recorded Internet Access Q1 Yes 06/24/2024 Internet Access Q2 Not on file 06/24/2024 Comments Unknown Sex and Gender Information Value Date Recorded Sex Assigned at Female 07/28/2022 10:17 AM EDT Legal Sex Female 10:17 AM EDT Gender Identity Female 07/28/2022 10:17 AM EDT Sexual Orientation Straight 07/28/2022 10 :17 AM EDT Last Filed Vital Signs Vital Sign Reading Time Taken Comments Blood Pressure 107/76 09/06/2024 10:06 AM EST Pulse 84 09/06/2024 10:06 AM EST Temperature 36.7 ??C (98.1 ??F) 09/06/2024 10:[address] Respiratory Rate 17 09/06/2024 10:06 AM EST Oxygen Saturation 99% 09/06/2024 10:06 AM EST Inhaled Oxygen Concentration - - Weight 83.9 kg (185 lb) 09/06/2024 10:06 AM EST Height 159.7 cm (5' 2.88 ) 06/24/2024 2:54 PM ED T Body Mass Index 32.9 06/24/2024 2:54 PM EDT Plan of Treatment Health Maintenance Due Date Last Done Comments CT Colonography 1974 Colonoscopy 1974 Colorectal Cancer Screening 1974 Dental Oral Exam 1974 Dental X-Ray: Full Mouth 1974 FIT DNA/Cologuard 1974 FIT 1974 FOBT 1974 HIV Screening 1974 Lipid Panel 1974 Sigmoidoscopy 1974 Family Planning (PISQ) 1989 Hepatitis C Screening 1992 Hepatitis A Vaccines (1 of 2 - Risk 2-dose series) 1993 Pneumococcal Vaccine: 50+ Years (1 of 2 - PCV) 1993 Pap Smear 1995 Cervical Cancer Screening 2004 HPV/Cotest 2004 DTaP/Tdap/Td Vaccines (1 - Tdap) 02/10/2006 02/09/2006 Hepatitis B Vaccines (2 of 3 - 19+ 3-dose series) 03/09/2006 02/09/2006 Dental Prophylaxis 07/24/2023 01/21/2023 Dental X-Ray: Bitewings 01/23/2024 01/21/2023 Zoster Vaccines (1 of 2) 2024 COVID-19 Vaccine (1 - 2023-2 5 season) 2024 Influenza Vaccine (#1) 2024 Depression Monitoring (PHQ-9) 12/22/2024, 06/24/2024 Mammogram 06/14/2025 06/14/2024, 03/26/2023, 03/21/2023 Alcohol/Substance Use Screening 06/24/2025 06/24/2024 Depression Screening 06/24/2025 06/24/2024, 06/24/2024 SDOH Screening 06/24/2025 06/24/2024 Tobacco Screening 09/06/2025 09/06/2024 RSV Patients and Patients Aged 60 years or older (1 - 1-dose 75+ series) 2049 HIB Vaccines Aged Out No longer eligi ble based on patient's age to complete this topic HPV Vaccines Aged Out No longer eligi ble based on patient's age to complete this topic IPV Vaccines Aged Out No longer eligi ble based on patient's age to complete this topic Meningococcal Vaccine Aged Out No mik serjio eligible based on patient's age to complete this topic RSV under 20 months Aged Out No longe r eligible based on patient's age to complete this topic Rotavirus Vaccines Aged Out No longer eligible based on patient's age to complete this topic Procedures Procedure Name Priority Date/Time Associated Diagnosis Comments POCT INFLUENZA B (ID NOW RAPID MOLECULAR) Routine 09/06/2024 10:22 AM EST Viral URI POCT INFLUENZA A (ID NOW RAPID MOLECULAR) Routine 09/06/2024 10:22 AM EST Viral URI POCT RAPID STREP A Routine 09/06/2024 10 :22 AM EST Viral URI POCT RAPID COVID ANTIGEN Routine 09/06/2024 10:22 AM EST Viral URI BI MAMMOGRAM SCREENING TOMOSYNTHESIS BILATERAL Routine 06/14/2024 8:45 AM EDT PROPHYLAXIS - ADULT Routine 01/21/2023 4 :00 PM EDT Encounter for dental examination Periodontal disease BITEWINGS - 2 RADIOGRAPHIC IMAGES Routine 01/21/2023 4:00 PM EDT Encounter for dental examination Periodontal disease from Last 3 Months or Most Recently Relevant to Health Maintenance Results * Influenza B (ID NOW Rapid Molecular) (09/06/2024 10:22 AM EST) Influenza B Negative Negative, Indeterminate [facility] Swab 09/06/2024 10:2 2 AM EST us Douglas Boyd MD POINT OF CARE TEST ENTER/EDIT OR DERABLES Final Result Performing Organization Address [facility] Co de Phone Number [facility] [address] [place] [phone] * Influenza A (ID NOW Rapid Molecular) (09/06/2024 10:22 AM EST) Influenza A Negative Negative, Indeterminate [facility] Swab 09/06/2024 10:2 2 AM EST us Douglas Boyd MD POINT OF CARE TEST ENTER/EDIT OR DERABLES Final Result Performing Organization Address [facility] Co de Phone Number [facility] [address] [place] [phone] * POCT Rapid COVID Ag (09/06/2024 10:22 AM EST) Rapid COVID Ag Negative [facility] Swab 09/06/2024 10:2 2 AM EST us Douglas Boyd MD POINT OF CARE TEST ENTER/EDIT OR DERABLES Final Result Performing Organization Address [facility] Co de Phone Number [facility] [address] [place] [phone] * POCT rapid strep A manually resulted (09/06/2024 10:22 AM EST) Rapid Strep A Screen Negative Negative, None Detected [facility] Swab 09/06/2024 10:2 2 AM EST us Douglas Boyd MD POINT OF CARE TEST ENTER/EDIT OR DERABLES Final Result Performing Organization Address [facility] Co de Phone Number [facility] [address] [place] [phone] * BI Mammogram Screening Tomosynthesis Bilateral (06/14/2024 8:45 AM EDT) Anatomical Region Laterality Modality Breast Bilateral Mammography 06/14/2024 8:45 AM EDT Narrative 06/27/2024 3:57 PM EDT ? [facility] ? [address] ?[place] [address] ? Mammography Report ? Signed ? Patient: Leanne Vega ?MR#: [id number] ?? 45 ? : 1975 ?Acct:[id number] ? Age/Sex: 49 / F ?ADM Date: 06/14/24 ? Loc: HO.MAMMO ? Attending Dr: Breana Raphael CONTRACT ANALYST ? Ordering Physician: Breana Raphael CONTRACT ANALYST ?Results: 2Benig ?? n Findings ? Date of Service: 06/14/24 ?Follow Up: 1 Year From Orig ?? inal Mammogram ? Procedure(s): MM tomosynthesis screening BI ?? Accession Number(s): [id number] ? cc: Breana Raphael CONTRACT ANALYST ? EXAMINATION: ?? MM SCREENING DIGITAL BREAST TOMOSYNTHESIS, BILATERAL ? CLINICAL INFORMATION: ? Screening. Asymptomatic. ? COMPARISON: ?? Mammography: Comparison is made with available priors ? TECHNIQUE: ?? Digital breast mammography with tomosynthesis is performed in both the ?? craniocaudal and mediolateral oblique views along with computer-aided ?? detection (CAD). ? FINDINGS: ?? There are scattered areas of fibroglandular density (ACR BI-RADS breast ?? composition Category b). ?? Bilateral circumscribed oval masses which wax and wane consistent with ?? benign fibrocystic changes and cysts. Some are demonstrated to be ?? simple cyst on prior ultrasounds. ?? There are no significant masses, abnormal calcifications, or other ?? abnormalities. ? MM/MM tomosynthesis screening BI ?? IMPRESSION: ?? No mammographic evidence of malignancy. ? ASSESSMENT: ? BI-RADS BI-RADS 2 - Benign Findings ? RECOMMENDATION: ?? Routine annual mammography screening. ? 1 year F/U ? This examination should not preclude the clinical evaluation of a ?? suspicious palpable abnormality. ? This patient's information was entered into a reminder system with a ?? target due date for their next mammogram. ? Electronically signed by: ??Jasmin Koo DO ??06/27/2024 03:54 PM EDT ? Dictated By: ?Jasmin Koo DO ? Signed By: ?<Electronically signed by Jasmin Koo, DO in OV> ? 06/27/24 1554 ? DD/ 0845 ? TD/TT: 06/14/24 0900 ? Brick Or Block Maker: ? Procedure Note Karen, Image - 06/27/2024 [facility] [address] [place] [address] Mammography Report Signed Patient: Leanne Vega CMR#: [id number] 45 : 1975Acct:[id number] Age/Sex: 49 / FADM Date: 06/14/24 Loc: [facility] Attending Dr: Breana Raphael CONTRACT ANALYST Ordering Physician: Breana Raphael FNPResults: 2Benig n Findings Date of Service: 06/14/24Follow Up: 1 Year From Orig inal Mammogram Procedure(s): MM tomosynthesis screening BI Accession Number(s): [id number] cc: Breana Raphael CONTRACT ANALYST EXAMINATION: MM SCREENING DIGITAL BREAST TOMOSYNTHESIS, BILATERAL CLINICAL INFORMATION: Screening. Asymptomatic. COMPARISON: Mammography: Comparison is made with available priors TECHNIQUE: Digital breast mammography with tomosynthesis is performed in both the craniocaudal and mediolateral oblique views along with computer-aided detection (CAD). FINDINGS: There are scattered areas of fibroglandular density (ACR BI-RADS breast composition Category b). Bilateral circumscribed oval masses which wax and wane consistent with benign fibrocystic changes and cysts. Some are demonstrated to be simple cyst on prior ultrasounds. There are no significant masses, abnormal calcifications, or other abnormalities. MM/MM tomosynthesis screening BI IMPRESSION: No mammographic evidence of malignancy. ASSESSMENT: BI-RADS BI-RADS 2 - Benign Findings RECOMMENDATION: Routine annual mammography screening. 1 year F/U This examination should not preclude the clinical evaluation of a suspicious palpable abnormality. This patient's information was entered into a reminder system with a target due date for their next mammogram. Electronically signed by: Jasmin Koo DO 06/27/2024 03:54 PM EDT Dictated By: Jasmin Koo DO Signed By: <Electronically signed by Jasmin Koo DO in OV> 06/27/24 1554 DD/ 0845 TD/TT: 06/14/24 0900 Brick Or Block Maker: Breana Raphael CONTRACT ANALYST IMG BI PROCEDURES Final Result from Last 3 Months or Most Recently Relevant to Health Maintenance Insurance [employer] [facility] AD[facility] Care Teams Wet Sander Relationship Specialty Start Date End Date Breana Raphael FNP [address] [place] [address] PCP - General Family Medicine 03/27/22
== END 2024-11-29 16:41 | disposition home or self-care (01) ==
LOC: HO.CT 16:40
PROVIDERS: PCP Registered Nurse; Visit Provider Physician Assistant Medical
DX: Z12.2 Encounter for screening for malignant neoplasm of respiratory organs (principal); F17.210 Nicotine dependence, cigarettes, uncomplicated
CPT/HCPCS: 71271

== ENCOUNTER → 2024-11-29 16:42 | Outpatient (BNV) | payer MEDICAID, SELFPAY | PROVIDERS: PCP Registered Nurse; Visit Provider Radiology Diagnostic Radiology | DX: F17.210 Nicotine dependence, cigarettes, uncomplicated (principal) | CPT/HCPCS: 71271 ==

== ENCOUNTER 2025-06-03 21:43 | Emergency (ER) | payer MEDICAID, SELFPAY ==
--- NOTE | ~2025-06-03 | CT_ITS ---
CLINICAL HISTORY: rt flank pain CT abdomen and pelvis without contrast Indication: Right flank pain Comparison: CT/SR - CT LUNG SCREENING - 11/29/24 16:48 EST Findings: No consolidation or effusion. No lung nodules. Spleen is normal. Pancreas is normal. Hepatic parenchyma is normal. Gallbladder is decompressed. The left kidney is normal. No nephrolithiasis or hydroureter. The right kidney is normal. No nephrolithiasis or periureteral stranding. Bladder is decompressed. There is a right bladder diverticulum. No bladder lithiasis. Noncontrasted small bowel is normal. Terminal ileum is normal. Appendix is not visualized. Large bowel is normal. Scattered diverticuli without evidence of diverticulitis. No focal bowel wall thickening. No adenopathy. Pelvic phleboliths are present. Pelvic contents are unremarkable. No acute fracture. IMPRESSION: No acute findings. No evidence of renal lithiasis or ureteral lithiasis. Scattered diverticuli without evidence of diverticulitis. This document has been electronically signed by: Oswaldo Elliott III, MD PHD on 06/04/2025 04:20:33
[2025-06-03 21:49] VITALS: BP 118/59; PULSE 85; RESP 20; TEMP 37.1; O2SAT 98; BMI 30.6
[2025-06-03 22:05] LABS: Hematocrit 40.6 % (37.0-47.0); Hemoglobin 14.4 g/dl (12.0-16.0); Imm Gran Abs Auto 0.04 X10*3/uL (0.00-0.03); Imm Gran Pct Auto 0.2 % (0.0-0.4); Lymphocytes Absolute Auto 4.5 X10*3/uL (1.2-4.9); MANUAL DIFF FLAG NO; Mean Corpuscular HGB Conc 35.5 g/dl (31.0-35.0); Mean Corpuscular Hemoglobin 31.9 pg (27.0-33.0); Mean Corpuscular Volume 89.8 fL (80.0-98.0); NRBC Abs Auto 0.000 X10*3/uL (0.0-0.012); NRBC Pct Auto 0.0 /100WBC (0.0-0.2); Platelet Count 315 X10*3/uL (160-400); Red Blood Count 4.52 X10*6/uL (4.20-5.50); White Blood Count 17.0 X10*3/uL (4.8-10.8)
[2025-06-03 22:11] LABS: Appearance Urine Turbid; Glucose Urine UA Negative (Negative); PH 7.0 (5.0-9.0); Specific Gravity - Urine 1.020 (1.005-1.025); UMIC TRIGGER UACC YES
[2025-06-03 22:16] LABS: Anion Gap 11 (12-20); Blood Urea Nitrogen 18 mg/dL (9-16); Calcium 9.0 mg/dL (8.4-10.2); Carbon Dioxide 24 mmol/L (22-29); Chloride 108 mmol/L (96-108); Creatinine Clr Calc Pharmacy 79.7; Estimated Glomerular Filt Rate > 60; Potassium 3.9 mmol/L (3.3-5.1); Sodium 139 mmol/L (135-145)
[2025-06-03 22:29] LABS: UACC Culture Trigger YES
--- OUTSIDE RECORDS SUMMARY | 2025-06-04 00:41 | XMS_ITS | Clinical Summary ---
Author Organization [employer] Address [address] [facility] [address] [place] [address] Care Team Providers Care Canvas Worker Apprentice Name Role Phone Breana Raphael FIDEL Primary Care Provider [phone] Allergies No known active allergies Medications amoxicillin [...] 06/24/24 Colonoscopy: Referral to Dr. Zambrano at [facility] in May 2024 Pap: Last ~2009, denies [...] for her in the past -Referred to [facility] LDCT for lung CA screening 06/24/24 Assessment & Plan (02/05/2023 11:09 AM EDT): Typically 6-12 cigg/day (depends on stress level) Discussed available smoking cessation resources through [facility] Encounters Date Type Department Care Team Description 06/03/2025 Orders Only GENERIC EXTERNAL DATA DEPARTMENT Provider, Generic External Data from Last 3 Months Immunizations Immunization Administration Dates Next Due Hep B, adult [...] 84 09/06/2024 10:06 AM EST Temperature 36.7 C (98.1 F) 09/06/2024 10:06 AM EST Respiratory Rate 17 09/06/2024 10:06 AM EST [...] Screening 1974 Lipid Panel 1974 Sigmoidoscopy 1974 Disability Screening 1974 Family Planning (PISQ) 1989 Hepatitis C Screening 1992 Pneumococcal Vaccine: 50+ Years (1 of 2 - PCV) 1993 Pap Smear 1995 Cervical Cancer Screening 2004 HPV/Cotest 2004 DTaP/Tdap/Td Vaccines (1 - Tdap) 02/10/2006 02/09/2006 Hepatitis B Vaccines (2 of 3 - 19+ 3-dose series) 03/09/2006 02/09/2006 Dental Prophylaxis 07/24/2023 01/21/2023 Dental X-Ray: Bitewings 01/23/2024 01/21/2023 Zoster Vaccines (1 of 2) 2024 Depression Monitoring 12/22/2024 06/24/2024 , 06/24/2024 COVID-19 Vaccine (1 - 2023-2 5 season) 2025 Influenza Vaccine (#1) 2025 Mammogram 06/14/2025 06/14/2024, 03/26/2023, 03/21/2023 Alcohol/Substance Use Screening 06/24/2025 06/24/2024 SDOH Screening 06/24/2025 06/24/2024 Tobacco Screening 09/06/2025 09/06/2024 RSV Patients and Patients Aged 60 years or older (1 - 1-dose 75+ series) 2049 HIB Vaccines Aged Out No longer eligi ble based on patient's age to complete this topic HPV Vaccines Aged Out No longer eligi ble based on patient's age to complete this topic Hepatitis A Vaccines Aged Out No long er eligible based on patient's age to complete this topic IPV Vaccines Aged Out No longer eligi ble based on patient's age to complete this topic Meningococcal B Vaccine Aged Out No l onger eligible based on patient's age to complete [...] Procedure Name Priority Date/Time Associated Diagnosis Comments URINALYSIS, COMPLETE, WITH REFLEX TO CULTURE Routine 06/03/2025 10:02 PM EDT BASIC METABOLIC PANEL Routine 06/03/2025 9:58 PM EDT CBC WITH AUTO DIFFERENTIAL Routine 06/03/2025 9:58 PM EDT BI MAMMOGRAM SCREENING TOMOSYNTHESIS BILATERAL Routine 06/14/2024 8:45 AM EDT PROPHYLAXIS - ADULT Routine 01/21/2023 4 :00 PM EDT Encounter for dental examination Periodontal disease BITEWINGS - 2 RADIOGRAPHIC IMAGES Routine 01/21/2023 4:00 PM EDT Encounter for dental examination Periodontal disease from Last 3 Months or Most Recently Relevant to Health Maintenance Results * (ABNORMAL) Urinalysis, Complete, with Reflex to Culture (06/03/2025 10:02 PM EDT) Color Urine RED [facility] Appearance Urine Turbid [facility] PH 7.0 5.0 - 9.0 [facility] Glucose Urine UA Negative Negative mg/dL [facility] Urine Blood Large (3+)(A) Negative [facility] Specific [place] - Urine 1.020 1.005 - 1.025 [facility] Urine Protein See Note Neg-Trace mg/dL [facility] Comment:Urine pigment obscur ed dipstick results. Urine Ketones See Note Negative mg/dL [facility] Comment:Urine pigment obscur ed dipstick results. Nitrite Urine See Note Negative [facility] Comment:Urine pigment obscur ed dipstick results. Leukocyte Esterase Urine Moderate (2+)(A) Negative [facility] RBC Urine >20(A) 0 - 2 /HPF [facility] Urine WBC >50(A) 0 - 5 /HPF [facility] Urine Squamous Epithelial Cell 0-2 0 - 2 /HPF [facility] Urine Bacteria Trace None Seen [facility] Hyaline Casts, Urine 0-2 0 - 2 /LPF [facility] 06/03/2025 10:0 2 PM EDT 06/03/2025 10:06 PM EDT Narrative [facility] - 06/03/2025 10:29 PM EDT 2201Urine, Clean Catch us Generic External Data Provider LAB URINE ORDERAB LES Final Result [facility] [address] [place] [phone] * (ABNORMAL) CBC auto differential (06/03/2025 9:58 PM EDT) White Blood Count 17.0(H) 4.8 - 10.8 X10*3/uL [facility] Red Blood Count 4.52 4.20 - 5.50 X10*6/uL [facility] Hemoglobin 14.4 12.0 - 16.0 g/dl [facility] Hematocrit 40.6 37.0 - 47.0 % [facility] Mean Corpuscular Volume 89.8 80.0 - 98.0 fL [facility] Mean Corpuscular Hemoglobin 31.9 27.0 - 33.0 pg [facility] Mean Corpuscular HGB Conc 35.5(H) 31.0 - 35.0 g/dl [facility] Red Cell Distribution Width 12.3 11.0 - 16.0 % [facility] Platelet Count 315 160 - 400 X10*3/uL [facility] Mean Platelet Volume 9.5 9.4 - 12.3 fL [facility] Neutrophils Percent Auto 65.2 45 - 73 % [facility] Imm Gran Pct Auto 0.2 0.0 - 0.4 % [facility] Lymphocytes Percent Auto 26.8 20 - 40 % [facility] Monocytes Percent Auto 5.0 2 - 11 % [facility] Eosinophils Percent Auto 2.4 0 - 4 % [facility] Basophils Percent Auto 0.4 0 - 2 % [facility] NRBC Pct Auto 0.0 0.0 - 0.2 /100WBC [facility] Neutrophils Absolute Auto 11.1(H) 2.0 - 8.3 x10*3/uL [facility] Imm Gran Abs Auto 0.04(H) 0.00 - 0.03 X10*3/uL [facility] Lymphocytes Absolute Auto 4.5 1.2 - 4.9 X10*3/uL [facility] Monocytes Absolute Auto 0.8 0.1 - 1.2 X10*3/uL [facility] Eosinophils Absolute Auto 0.4 0.0 - 0.4 X10*3/uL [facility] Basophils Absolute Auto 0.1 0.0 - 0.2 X10*3/uL [facility] NRBC Abs Auto 0.000 0.0 - 0.012 X10*3/uL [facility] 06/03/2025 9:58 PM EDT 06/03/2025 10:03 PM EDT us Generic External Data Provider LAB BLOOD ORDERAB LES Final Result [facility] [address] [place] [phone] * (ABNORMAL) Basic Metabolic Panel (06/03/2025 9:58 PM EDT) Sodium 139 135 - 145 mmol/L [facility] Potassium 3.9 3.3 - 5.1 mmol/L [facility] Chloride 108 96 - 108 mmol/L [facility] Carbon Dioxide 24 22 - 29 mmol/L [facility] Anion Gap 11(L) 12 - 20 [facility] Urea Nitrogen (BUN) 18(H) 9 - 16 mg/dL [facility] Creatinine, Serum 0.89 0.5 - 1.4 mg/dL [facility] Creatinine Clr Calc Pharmacy 79.7 [facility] Comment:Provided height and weight: 165.1 cm,83.5 kg.eGFR (calculated from the MDRD study equation) and eCrCl(calculated from the Cockcroft-Gault equation) are based ondifferent parameters and may not yield comparable results.If eCrCl result is absurd, please check patient'sheight/weight. Estimated Glomerular Filt Rate >60 [facility] Comment:Chronic Kidney Disea se: Estimated GFR < 60 mL/min/[id number] Kidney Disease: Estimated GFR < 15 mL/min/1.73m2 Glucose 94 60 - 115 mg/dL [facility] Calcium 9.0 8.4 - 10.2 mg/dL [facility] 06/03/2025 9:58 PM EDT 06/03/2025 10:03 PM EDT us Generic External Data Provider LAB BLOOD ORDERAB LES Final Result [facility] [address] [place] [phone] * BI Mammogram Screening Tomosynthesis Bilateral (06/14/2024 8:45 AM EDT) Anatomical Region Laterality Modality Breast Bilateral Mammography 06/14/2024 8:45 AM EDT Narrative 06/27/2024 3:57 PM EDT [facility] [address] [place] [address] Mammography Report Signed Patient: Leanne Vega MR#: [id number] 45 : 1975 Acct:[id number] Age/Sex: 49 / F ADM Date: 06/14/24 Loc: HO.MAMMO Attending Dr: Breana Raphael SWITCH REPAIRER Ordering Physician: Breana Raphael Results: 2Benig n Findings Date of Service: 06/14/24 Follow Up: 1 Year From Orig ina Mammogram Procedure(s): MM tomosynthesis screening BI Accession Number(s): [id number] cc: Breana Raphael SWITCH REPAIRER EXAMINATION: MM SCREENING DIGITAL BREAST TOMOSYNTHESIS, BILATERAL [...] 06/27/24 1554 DD/ 0845 TD/TT: 06/14/24 0900 Drone Operator: Procedure Note Donotuseinterpreter, Image - 06/27/2024 [facility] [address] [place] [address] Mammography Report Signed Patient: Leanne Vega CMR#: [id number] 45 : 1975Acct:[id number] Age/Sex: 49 / FADM Date: 06/14/24 Loc: HO.MAMMO Attending Dr: Breana PARRA Ordering Physician: Breana RaphaelPResults: 2Benig n Findings Date of Service: 06/14/24Follow Up: 1 Year From [facility] ina Mammogram Procedure(s): MM tomosynthesis screening BI Accession Number(s): [id number] cc: Breana Raphael EXAMINATION: MM SCREENING DIGITAL BREAST TOMOSYNTHESIS, BILATERAL [...] 06/27/24 1554 DD/ 0845 TD/TT: 06/14/24 0900 Drone Operator: Breana PARRA IMG BI PROCEDURES Final Result from Last 3 Months or Most Recently Relevant to Health Maintenance Insurance [facility] C3 DENTAL-[facility] MEDICAID STAND ADULT Care Teams Canvas Worker Apprentice Relationship Specialty Start Date End Date Breana Raphael FNP [address], [place] PCP - General Family Medicine 03/27/22
--- OUTSIDE RECORDS SUMMARY | 2025-06-04 00:41 | XMS_ITS | Encounter Summary ---
Author Organization [employer] Address [address] [facility] [address] [place] [address] Care Team Providers Care Student Name Role Phone Breana Raphael FIDEL Primary Care Provider [phone] Encounter Details Date Type Department Care Team (Late st Contact Info) Description 06/03/2025 Orders Only GENERIC EXTERNAL DATA DEPARTMENT Provider, Generic External Data Social History Tobacco Use Types Packs/Day Years Used Date Smoking Tobacco: Every Day Cigarettes Smokeless Tobacco: Never Alcohol Use Standard Drinks/Week Comments Yes 0 [...] Orientation Straight 07/28/2022 10 :17 AM EDT documented as of this encounter Plan of Treatment Not on file documented as of this encounter Procedures Procedure Name Priority Date/Time Associated Diagnosis Comments URINALYSIS, COMPLETE, WITH REFLEX TO CULTURE Routine 06/03/2025 10:02 PM EDT CBC WITH AUTO DIFFERENTIAL Routine 06/03/2025 9:58 PM EDT BASIC METABOLIC PANEL Routine 06/03/2025 9:58 PM EDT documented in this encounter Results * (ABNORMAL) Urinalysis, Complete, with Reflex to Culture (06/03/2025 10:02 PM EDT) Color Urine RED [facility] Appearance Urine Turbid [facility] PH 7.0 5.0 - 9.0 [facility] Glucose Urine UA Negative Negative mg/dL [facility] Urine Blood Large (3+)(A) Negative [facility] Specific [place] - Urine 1.020 1.005 - 1.025 [facility] Urine Protein See Note Neg-Trace mg/dL [facility] Comment:Urine pigment obscur ed dipstick results. Urine Ketones See Note Negative mg/dL [facility] Comment:Urine pigment obscur ed dipstick results. Nitrite Urine See Note Negative [facility] Comment:Urine pigment obscur ed dipstick results. Leukocyte Esterase Urine Moderate (2+)(A) Negative [facility] RBC Urine >20(A) 0 - 2 /HPF [facility] Urine WBC >50(A) 0 - 5 /HPF [facility] Urine Squamous Epithelial Cell 0-2 0 - 2 /HPF [facility] Urine Bacteria Trace None Seen [facility] Hyaline Casts, Urine 0-2 0 - 2 /LPF [facility] 06/03/2025 10:0 2 PM EDT 06/03/2025 10:06 PM EDT Narrative [facility] - 06/03/2025 10:29 PM EDT 2201Urine, Clean Catch us Generic External Data Provider LAB URINE ORDERAB LES Final Result [facility] [address] [place] [phone] * (ABNORMAL) Basic Metabolic Panel (06/03/2025 9:58 PM EDT) Sodium 139 135 - 145 mmol/L [facility] Potassium 3.9 3.3 - 5.1 mmol/L [facility] Chloride 108 96 - 108 mmol/L [facility] Carbon Dioxide 24 22 - 29 mmol/L [facility] Anion Gap 11(L) 12 - 20 [facility] Urea Nitrogen (BUN) 18(H) 9 - 16 mg/dL [facility] Creatinine, Serum 0.89 0.5 - 1.4 mg/dL [facility] Creatinine Clr Calc Pharmacy 79.7 [facility] Comment:Provided height and weight: 165.1 cm,83.5 kg.eGFR (calculated from the MDRD study equation) and eCrCl(calculated from the Cockcroft-Gault equation) are based ondifferent parameters and may not yield comparable results.If eCrCl result is absurd, please check patient'sheight/weight. Estimated Glomerular Filt Rate >60 [facility] Comment:Chronic Kidney Disea se: Estimated GFR < 60 mL/min/[id number] Kidney Disease: Estimated GFR < 15 mL/min/1.73m2 Glucose 94 60 - 115 mg/dL [facility] Calcium 9.0 8.4 - 10.2 mg/dL [facility] 06/03/2025 9:58 PM EDT 06/03/2025 10:03 PM EDT us Generic External Data Provider LAB BLOOD ORDERAB LES Final Result [facility] [address] [place] [phone] * (ABNORMAL) CBC auto differential (06/03/2025 9:58 PM EDT) White Blood Count 17.0(H) 4.8 - 10.8 X10*3/uL [facility] Red Blood Count 4.52 4.20 - 5.50 X10*6/uL [facility] Hemoglobin 14.4 12.0 - 16.0 g/dl [facility] Hematocrit 40.6 37.0 - 47.0 % [facility] Mean Corpuscular Volume 89.8 80.0 - 98.0 fL [facility] Mean Corpuscular Hemoglobin 31.9 27.0 - 33.0 pg [facility] Mean Corpuscular HGB Conc 35.5(H) 31.0 - 35.0 g/dl [facility] Red Cell Distribution Width 12.3 11.0 - 16.0 % [facility] Platelet Count 315 160 - 400 X10*3/uL [facility] Mean Platelet Volume 9.5 9.4 - 12.3 fL [facility] Neutrophils Percent Auto 65.2 45 - 73 % [facility] Imm Gran Pct Auto 0.2 0.0 - 0.4 % [facility] Lymphocytes Percent Auto 26.8 20 - 40 % [facility] Monocytes Percent Auto 5.0 2 - 11 % [facility] Eosinophils Percent Auto 2.4 0 - 4 % [facility] Basophils Percent Auto 0.4 0 - 2 % [facility] NRBC Pct Auto 0.0 0.0 - 0.2 /100WBC [facility] Neutrophils Absolute Auto 11.1(H) 2.0 - 8.3 x10*3/uL [facility] Imm Gran Abs Auto 0.04(H) 0.00 - 0.03 X10*3/uL [facility] Lymphocytes Absolute Auto 4.5 1.2 - 4.9 X10*3/uL [facility] Monocytes Absolute Auto 0.8 0.1 - 1.2 X10*3/uL [facility] Eosinophils Absolute Auto 0.4 0.0 - 0.4 X10*3/uL [facility] Basophils Absolute Auto 0.1 0.0 - 0.2 X10*3/uL [facility] NRBC Abs Auto 0.000 0.0 - 0.012 X10*3/uL [facility] 06/03/2025 9:58 PM EDT 06/03/2025 10:03 PM EDT us Generic External Data Provider LAB BLOOD ORDERAB LES Final Result [facility] [address] [place] [phone] documented in this encounter Visit Diagnoses Not on filedocumented in this encounter Additional Health Concerns Assessment Noted Time PHQ-9 Depression Total Score: 11 024 2:57 PM EDT documented as of this encounter Care Teams Student Relationship Specialty Start Date End Date Breana Raphael FNP [address] [place] [address] PCP - General Family Medicine 03/27/22 documented as of this encounter
[2025-06-04 00:42] VITALS: BP 101/68; PULSE 71; RESP 16; TEMP 36.6; O2SAT 98
--- NOTE | 2025-06-04 00:45 | ED.ABDPAIN ---
HPI - Abdominal Pain General Chief Complaint: Abdominal Pain Stated Complaint: blood in the urine Time Seen by Provider: 06/04/25 00:36 Source: patient Mode of arrival: ambulatory Limitations: no limitations History of Present Illness HPI narrative: This is a 50 years old the patient presented to the emergency department with a chief complaint of hematuria right flank pain since about 17:00 last night. Denies any fever chills vomiting. She has no past medical history she does not take any medicine MD elicited complaint: flank pain (right) Pertinent past history: none Onset (ago): hour(s) (6) Pain Consistency: constant Location: R flank Severity: moderate Quality: cramping Radiation: none Migration to: no migration Exacerbating factors: nothing Relieving factors: nothing Related Data Previous Rx's ?Medication ?Instructions ?Recorded sodium,potassium,mag sulfates 17.5 See Rx Instructions PO .COMPLEX 07/28/24 gram-3.13 gram-1.6 gram oral soln #354 mL (Suprep Bowel Prep Kit) ketorolac 10 mg tablet 10 mg PO TID PRN pain #10 tabs 06/04/25 levofloxacin 500 mg tablet 500 mg PO DAILY #9 tabs 06/04/25 Allergies Allergy/AdvReac Type Severity Reaction Status Date / Time No Known Allergies Allergy Verified 06/03/25 21:51 Review of Systems Constitutional: Reports no additional constitutional complaints Cardiovascular: Reports no additional cardiovascular complaints Genitourinary: Reports as per HPI [facility] Past Medical History Attestation statement: The following information was validated with the patient. [facility] Narrative: Denies any major medical problem Medical History (Updated 06/04/25 @ 04:40 by Anabel Escobar MD) Colon cancer screening History of pulmonary embolus (PE) (~03/2010) Nicotine dependence, cigarettes, uncomplicated Thrombosed external hemorrhoid Surgical History History of tubal ligation History of Social History Social History Alcohol intake: never Patient Tobacco Use Status: Current everyday Tobacco user Cigarettes Per Day: 10 Years Smoked: (onset 12yo, 1-1.5ppd x 36yrs, now1/2ppd - 45pyh) Advance Directives: No Advance Directives Information Provided: Yes Physical Exam ED Exam Exam: She looks well she is not toxic-appearing Vital Signs: Vital Signs - 24 hr 06/03/25 21:49 06/04/25 00:42 06/04/25 03:20 Temperature 98.7 F 97.9 F 97.7 F Pulse Rate 85 71 67 Respiratory Rate 20 16 16 Blood Pressure 118/59 L 101/68 105/61 Pulse Oximetry 98 98 97 Oxygen Delivery Method Room Air Room Air Room Air BMI result Body Mass Index 30.6 Const General: cooperative Nutritional Appearance: average body habitus Orientation/consciousness: patient oriented x3 Limitations: no limitations HENMT Head: Yes normal to inspection Ears: hearing grossly normal bilaterally General nose exam: Normal external nose present Face and sinus: Yes normal facial exam Neck Neck: Yes normal visual inspection and Yes full ROM Chest Chest palpation & inspection: normal inspection of the chest Resp Effort & Inspection: normal respiratory effort Auscultation: clear to auscultation bilaterally Cardio Jugular venous distension: no JVD Rate: regular rate Rhythm: regular rhythm GI Inspection: Yes normal to inspection Palpation (GI): Soft to palpation Auscultation: normal bowel sounds Skin General skin exam: no rashes or lesions noted and elasticity normal Lesions: no lesions Rashes: no rashes Neuro General: patient oriented x3 Cranial nerves: Yes CN's II-XII intact bilaterally Course Reevaluation(s) Reevaluation #1: Signed out to Dr Escobar CT pending Time: 02:09 Medical Decision Making Medical Decision Making [facility] Narrative: Patient is here with hematuria right flank pain we will obtain imaging I received sign-out from my colleague Dr. Bedolla CT scan does not show any evidence of ureterolithiasis. Most likely, patient has hematuria secondary to a UTI. Patient has symptoms of UTI plus flank pain, we will treat as pyelonephritis. Patient has not had any fever, chills tachycardia or hypotension. Sepsis is not suspected Differential Diagnosis Differential Diagnoses: The differential diagnosis associated with the presentation includes Question of kidney stone question pyelonephritis Admission/Observation Consideration of admission/observation: Escalation of care including admission/observation considered Lab Data [facility] Lab Attestation statement: I reviewed the patient's lab results. 06/03/25 21:58 06/03/25 21:58 Labs: Lab Results 06/03/25 06/03/25 Range/Units 21:58 22:02 WBC 17.0 H (4.8-10.8) X10*3/uL RBC 4.52 (4.20-5.50) X10*6/uL Hgb 14.4 (12.0-16.0) g/dl Hct 40.6 (37.0-47.0) % MCV 89.8 (80.0-98.0) fL MCH 31.9 (27.0-33.0) pg MCHC 35.5 H (31.0-35.0) g/dl RDW 12.3 (11.0-16.0) % Plt Count 315 (160-400) X10*3/uL MPV 9.5 (9.4-12.3) fL Immature Gran % (Auto) 0.2 (0.0-0.4) % Neut % (Auto) 65.2 (45-73) % Lymph % (Auto) 26.8 (20-40) % [place] % (Auto) 5.0 (2-11) % Eos % (Auto) 2.4 (0-4) % Baso % (Auto) 0.4 (0-2) % Lymph # (Auto) 4.5 (1.2-4.9) X10*3/uL [place] # (Auto) 0.8 (0.1-1.2) X10*3/uL Eos # (Auto) 0.4 (0.0-0.4) X10*3/uL Baso # (Auto) 0.1 (0.0-0.2) X10*3/uL Abs Immat Gran (auto) 0.04 H (0.00-0.03) X10*3/uL Absolute Neuts (auto) 11.1 H (2.0-8.3) x10*3/uL Absolute Nucleated RBC 0.000 (0.0-0.012) X10*3/uL Nucleated RBC % (auto) 0.0 (0.0-0.2) /100WBC Sodium 139 (135-145) mmol/L Potassium 3.9 (3.3-5.1) mmol/L Chloride 108 (96-108) mmol/L Carbon Dioxide 24 (22-29) mmol/L Anion Gap 11 L (12-20) BUN 18 H (9-16) mg/dL Creatinine 0.89 (0.5-1.4) mg/dL Estim Creat Clear Calc 79.7 Estimated GFR > 60 Random Glucose 94 (60-115) mg/dL Calcium 9.0 (8.4-10.2) mg/dL Urine Color RED Urine Appearance Turbid Urine pH 7.0 (5.0-9.0) Ur Specific [place] 1.020 (1.005-1.025) Urine Protein See Note (Neg-Trace) mg/dL Urine Glucose (UA) Negative (Negative) mg/dL Urine Ketones See Note (Negative) mg/dL Urine Blood Large (3+) H (Negative) Urine Nitrite See Note (Negative) Ur Leukocyte Esterase Moderate (2+) H (Negative) Urine RBC >20 H (0-2) /HPF Urine WBC >50 H (0-5) /HPF Ur Squamous Epith Cells 0-2 (0-2) /HPF Urine Bacteria Trace (None Seen) Hyaline Casts 0-2 (0-2) /LPF Independent Interpretation I performed an independent interpretation of an: CT Scan Radiology Impression Discussion of test interpretation with radiology: I have reviewed the radiologist's reading. Radiologist Impression: No consolidation or effusion. No lung nodules. Spleen is normal. Pancreas is normal. Hepatic parenchyma is normal. Gallbladder is decompressed. The left kidney is normal. No nephrolithiasis or hydroureter. The right kidney is normal. No nephrolithiasis or periureteral stranding. Bladder is decompressed. There is a right bladder diverticulum. No bladder lithiasis. Noncontrasted small bowel is normal. Terminal ileum is normal. Appendix is not visualized. Large bowel is normal. Scattered diverticuli without evidence of diverticulitis. No focal bowel wall thickening. No adenopathy. Pelvic phleboliths are present. Pelvic contents are unremarkable. No acute fracture. IMPRESSION: No acute findings. No evidence of renal lithiasis or ureteral lithiasis. Scattered diverticuli without evidence of diverticulitis. Medications Administered Discontinued Medications Generic Name Dose Route Start Last Admin Trade Name Freq PRN Reason Stop Dose Admin Ketorolac Tromethamine 15 mg 06/04/25 00:45 06/04/25 00:53 Ketorolac Tromethamine 15 Mg/Ml Vial IVPUSH 06/04/25 00:46 15 mg ONCE ONE Administration Critical Care Time Critical Care Time Critical Care Time: Yes Total Critical Care Time: 35 Attestation: I have personally provided critical care time. Time includes review of lab data, radiology results, discussion with consultants, and monitoring for potential decompensation. Intervention performed as documented. Discharge Plan Discharge Clinical Impression: Flank pain, acute, Hematuria, Pyelonephritis Patient Disposition: Home, Self-Care Instructions: Kidney Infection (ED) Additional Instructions: Please follow-up with your primary care physician tomorrow. If you have any worsening or new symptoms, please return to the emergency room or call 911 Prescriptions: New levofloxacin 500 mg tablet 500 mg PO DAILY Qty: 9 0RF ketorolac 10 mg tablet 10 mg PO TID PRN (Reason: pain) Qty: 10 0RF Rx Instructions: Do not mix this medication with NSAIDs, only Tylenol if needed No Action sodium,potassium,mag sulfates [Suprep Bowel Prep Kit] 17.5-3.13-1.6 gram recon soln See Rx Instructions PO .COMPLEX Qty: 354 0RF Rx Instructions: DILUTE; drink full amount early evening before AND next morning at least 2 hr before procedure; follow w 960 mL water PO Stand Alone Forms: Work/School Release Print Language: Romanian
[2025-06-04 03:20] VITALS: BP 105/61; PULSE 67; RESP 16; TEMP 36.5; O2SAT 97
[2025-06-04 04:48] VITALS: BP 119/72; PULSE 80; RESP 18; TEMP 36.5; O2SAT 99
[2025-06-04 04:56] VITALS: BP 119/72; PULSE 80; RESP 18; TEMP 36.5; O2SAT 99
== END 2025-06-04 04:56 | disposition home or self-care (01) ==
PROVIDERS: Emergency Medicine; Emergency Provider Emergency Medicine; PCP Registered Nurse
DX: R31.9 Hematuria, unspecified (principal); N12 Tubulo-interstitial nephritis, not specified as acute or chronic; R10.2 Pelvic and perineal pain; Z79.899 Other long term (current) drug therapy
CPT/HCPCS: 36415; 74176; 80048; 81001; 85025; 87086; 87088; 87186; 96374; 96375; 99284; J1885; J2270

== ENCOUNTER → 2025-06-04 00:44 | Outpatient (BNV) | payer MEDICAID, SELFPAY | PROVIDERS: Emergency Provider Emergency Medicine; PCP Registered Nurse; Visit Provider Radiology Diagnostic Radiology | DX: K57.30 Diverticulosis of large intestine without perforation or abscess without bleeding (principal) | CPT/HCPCS: 74176 ==

== ENCOUNTER 2025-06-15 13:48 | Emergency (ER) | payer MEDICAID, SELFPAY ==
[2025-06-15 13:59] VITALS: BP 113/62; PULSE 103; RESP 20; TEMP 36.2; O2SAT 98; BMI 27.5
--- NOTE | 2025-06-15 14:02 | ED_ITS ---
HPI - General Adult General Chief complaint: Dyspnea Stated complaint: SOB Related Data Previous Rx's ?Medication ?Instructions ?Recorded sodium,potassium,mag sulfates 17.5 See Rx Instructions PO .COMPLEX 07/28/24 gram-3.13 gram-1.6 gram oral soln #354 mL (Suprep Bowel Prep Kit) ketorolac 10 mg tablet 10 mg PO TID PRN pain #10 ta bs 06/04/25 levofloxacin 500 mg tablet 500 mg PO DAILY #9 tabs 04/21 albuterol sulfate 90 mcg/actuation 2 puff inhalation Q 4-6H PRN 06/16/25 aerosol inhaler (Ventolin HFA) shortness of breath or wheezing #6.7 grams azithromycin 250 mg tablet See Rx Instructions PO .COM PLEX #6 06/16/25 tabs prednisone 10 mg tablet See Rx Instructions .Route 0 06/16/25 .COMPLEX #15 tabs Allergies Allergy/AdvReac Type Severity Reaction Status Date / Time No Known Allergies Allergy Verified 06/16/25 10:34 [facility] Past Medical History Medical History (Updated 06/17/25 @ 21:20 by DAI Drew) Colon cancer screening History of pulmonary embolus (PE) (~03/2010) Nicotine dependence, cigarettes, uncomplicated Thrombosed external hemorrhoid Surgical History History of tubal ligation History of Social History Social History Alcohol intake: never Patient Tobacco Use Status: Current everyday Tobacco user Cigarettes Per Day: 10 Years Smoked: (onset 12yo, 1-1.5ppd x 36yrs, now1/2ppd - 45pyh) Smoked in Last 30 Days: Yes Use of substances other than those prescribed or required for medical reasons: No Advance Directives: No Advance Directives Information Provided: No Physical Exam ED Vital Signs: BMI result Body Mass Index 27.5 Course Course Course Narrative: This is an RME: Additional HPI, ROS, PE not included below will be deferred to primary provider. RME assessment and note performed by: Gwen Salcedo PA-C This is a 50-year-old female, smoker, who presents emergency department with concerns of shortness of breath, cough. Patient is speaking in 3-4 word sentences, lungs with inspiratory and expiratory wheezes noted throughout all lung jha. She was previously seen on June 04 for pyelonephritis, previously on Levaquin, as well as prednisone. She has been taking this however has not noticed an improvement. Plan: Labs, EKG, chest x-ray, further ER evaluation needed. Reevaluation(s) Reevaluation #1: Patient left without completing treatment. Medical Decision Making Lab Data 06/15/25 14:22 06/15/25 14:22 Labs: Lab Results 06/15/25 Range/Units 14:22 WBC 16.1 H (4.8-10.8) X10*3/uL RBC 5.02 (4.20-5.50) X10*6/uL Hgb 15.8 (12.0-16.0) g/dl Hct 44.2 (37.0-47.0) % MCV 88.0 (80.0-98.0) fL MCH 31.5 (27.0-33.0) pg MCHC 35.7 H (31.0-35.0) g/dl RDW 12.3 (11.0-16.0) % Plt Count 360 (160-400) X10*3/uL MPV 9.3 L (9.4-12.3) fL Immature Gran % (Auto) 0.6 H (0.0-0.4) % Neut % (Auto) 60.6 (45-73) % Lymph % (Auto) 33.4 (20-40) % [place] % (Auto) 4.4 (2-11) % Eos % (Auto) 0.8 (0-4) % Baso % (Auto) 0.2 (0-2) % Lymph # (Auto) 5.4 H (1.2-4.9) X10*3/uL [place] # (Auto) 0.7 (0.1-1.2) X10*3/uL Eos # (Auto) 0.1 (0.0-0.4) X10*3/uL Baso # (Auto) 0.0 (0.0-0.2) X10*3/uL Abs Immat Gran (auto) 0.09 H (0.00-0.03) X10*3/uL Absolute Neuts (auto) 9.8 H (2.0-8.3) x10*3/uL Absolute Nucleated RBC 0.000 (0.0-0.012) X10*3/uL Nucleated RBC % (auto) 0.0 (0.0-0.2) /100WBC Smear Tech's Comments VERIFIED Sodium 142 (135-145) mmol/L Potassium 2.8 L* D (3.3-5.1) mmol/L Chloride 106 (96-108) mmol/L Carbon Dioxide 27 (22-29) mmol/L Anion Gap 12 (12-20) BUN 16 (9-16) mg/dL Creatinine 1.14 (0.5-1.4) mg/dL Estim Creat Clear Calc 57.0 Estimated GFR 50 Random Glucose 142 H (60-115) mg/dL Calcium 9.3 (8.4-10.2) mg/dL Magnesium 2.2 (1.6-2.6) mg/dL Total Bilirubin 0.4 (0.0-1.0) mg/dL Direct Bilirubin 0.1 (0.0-0.5) mg/dL AST 15 (5-31) U/L ALT 16 (0-31) U/L Alkaline Phosphatase 75 (39-117) U/L Troponin I High Sens < 2.7 (<3.5-17.0) ng/L Total Protein 6.8 (6.5-8.0) g/dL Albumin 4.1 (3.5-5.0) g/dL COVID-19 (FRANCISCO) Negative (Negative) COVID-19 Clin Com See Note Influenza Type A (RASHIDA) Negative (Negative) Influenza Type B (RASHIDA) Negative (Negative) Influenza A & B Note See Note Discharge Plan Discharge Clinical Impression: Shortness of breath Patient Disposition: Left W/O Completing Treatment Prescriptions: No Action levofloxacin 500 mg tablet 500 mg PO DAILY Qty: 9 0RF ketorolac 10 mg tablet 10 mg PO TID PRN (Reason: pain) Qty: 10 0RF Rx Instructions: Do not mix this medication with NSAIDs, only Tylenol if needed azithromycin 250 mg tablet See Rx Instructions .ROUTE .COMPLEX Qty: 6 0RF Rx Instructions: For 250 mg dose pack: take 500 mg today (day 1), then 250 mg for 4 days (days 2-5) prednisone 10 mg tablet See Rx Instructions .ROUTE .COMPLEX Qty: 15 0RF Rx Instructions: 50mg (5 tabs) x1 day, then 40 mg (4 tabs) x1 day, then 30 mg (3 tabs) x1 day, then 20 mg (2 tabs) times 1 day, then 10 mg (1 tab) x1 day albuterol sulfate [Ventolin HFA] 90 mcg/actuation HFA aerosol inhaler 2 puff inhalation Q4-6H PRN (Reason: shortness of breath or wheezing) Qty: 6.7 0RF sodium,potassium,mag sulfates [Suprep Bowel Prep Kit] 17.5-3.13-1.6 gram recon soln See Rx Instructions PO .COMPLEX Qty: 354 0RF Rx Instructions: DILUTE; drink full amount early evening before AND next morning at least 2 hr before procedure; follow w 960 mL water PO Discharge Date/Time: 06/15/25 19:39
--- NOTE | 2025-06-15 14:04 | ECG_ITS ---
Test Reason : CP Blood Pressure : */* mmHG Vent. Rate : 88 BPM Atrial Rate : 88 BPM P-R Int : 158 ms QRS Dur : 92 ms QT Int : 350 ms P-R-T Axes : 72 29 60 degrees QTcB Int : 423 ms Normal sinus rhythm Possible Left atrial enlargement Incomplete right bundle branch block Septal infarct , age undetermined Abnormal ECG When compared with ECG of 23-Feb-2024 16:26, Incomplete right bundle branch block is now Present Septal infarct is now Present Referred By: Gwen Salcedo Electronically Signed By: ARLEY CARLSON
[2025-06-15 14:30] LABS: Hematocrit 44.2 % (37.0-47.0); Hemoglobin 15.8 g/dl (12.0-16.0); Imm Gran Abs Auto 0.09 X10*3/uL (0.00-0.03); Imm Gran Pct Auto 0.6 % (0.0-0.4); Lymphocytes Absolute Auto 5.4 X10*3/uL (1.2-4.9); MANUAL DIFF FLAG SCAN; Mean Corpuscular HGB Conc 35.7 g/dl (31.0-35.0); Mean Corpuscular Hemoglobin 31.5 pg (27.0-33.0); Mean Corpuscular Volume 88.0 fL (80.0-98.0); NRBC Abs Auto 0.000 X10*3/uL (0.0-0.012); NRBC Pct Auto 0.0 /100WBC (0.0-0.2); Platelet Count 360 X10*3/uL (160-400); Red Blood Count 5.02 X10*6/uL (4.20-5.50); SCAN SMEAR FLAG 1; White Blood Count 16.1 X10*3/uL (4.8-10.8)
[2025-06-15 14:46] LABS: COVID-19 Test Negative (Negative); IDNOW Serial# 55D5AD1C
[2025-06-15 14:49] LABS: IDNOW Serial# 58CA691E; Influenza B2 Negative (Negative)
[2025-06-15 15:00] LABS: Troponin-I High Sensitivity < 2.7 ng/L (<3.5-17.0)
[2025-06-15 15:02] LABS: Alanine Aminotransferase 16 U/L (0-31); Albumin Level 4.1 g/dL (3.5-5.0); Alkaline Phosphatase 75 U/L (39-117); Anion Gap 12 (12-20); Aspartate Amino Transferase 15 U/L (5-31); Blood Urea Nitrogen 16 mg/dL (9-16); Calcium 9.3 mg/dL (8.4-10.2); Carbon Dioxide 27 mmol/L (22-29); Chloride 106 mmol/L (96-108); Creatinine Clr Calc Pharmacy 57.0; Estimated Glomerular Filt Rate 50; Magnesium 2.2 mg/dL (1.6-2.6); Potassium 2.8 mmol/L (3.3-5.1); Sodium 142 mmol/L (135-145); Total Protein 6.8 g/dL (6.5-8.0)
--- OUTSIDE RECORDS SUMMARY | 2025-06-15 19:37 | XMS_ITS | Clinical Summary ---
Author Organization [employer] Address [address] [facility] [address] [place] [address] Care Team Providers Care Products Mechanical Design Engineer Name Role Phone Breana Raphael FIDEL Primary Care Provider [phone] Allergies No known active allergies Medications nicotine (Nicoderm CQ) 14 MG/24HR patchIndication s:Cigarette nicotine dependence without complication Place 1 patch on the skin 1 (one) time each day at the same time. 42 patch 07/19/20 24 Active acetaminophen (Tylenol) 500 MG tablet Take 2 tablets (1,000 mg) by mouth every 6 (six) hours if needed for moderate pain or fever. 40 tablet 09/06/20 24 Active predniSONE (Deltasone) 10 MG tabletIndicatio ns:Cough in adult patient Take 5 tablets (50 mg) by mouth Once per day for 3 days, THEN 4 tablets (40 mg) Once per day for 3 days, THEN 2 tablets (20 mg) Once per day for 4 days, THEN 1 tablet (10 mg) Once per day for 4 days. 39 tablet 06/07/20 25 025 Active albuterol 108 (90 Base) MCG/ACT inhalerIndicati ons:Cough in adult patient,SOB (shortness of breath) Inhale 2 puffs every 4 (four) hours if needed for wheezing or shortness of breath. 18 g 1 06/07/20 25 026 Active amoxicillin (Amoxil) 500 MG capsule Take 1 tab po bid for 10 days 20 capsule 07/19/20 24 025 Discontinued(Th erapy completed) albuterol 108 (90 Base) MCG/ACT inhaler Inhale 2 puffs every 4 (four) hours if needed for wheezing or shortness of breath. 18 g 1 09/06/20 24 025 Discontinued(Re order (will not trigger notification to Pharmacy)) azithromycin (Zithromax Z-Fritz) 250 MG tablet Take 2 tablets once on day 1, then 1 tablet 1x/day for 4 days. 6 tablet 09/06/20 24 025 Discontinued(Th erapy completed) Active Problems Problem Noted Date Diagnosed Date [...] 06/24/24 Colonoscopy: Referral to Dr. Zambrano at [facility] in May 2024 Pap: Last ~2009, denies [...] for her in the past -Referred to [facility] LDCT for lung CA screening 06/24/24 Assessment & Plan (02/05/2023 11:09 AM EDT): Typically 6-12 cigg/day (depends on stress level) Discussed available smoking cessation resources through [facility] Encounters Date Type Department Care Team Description 06/15/2025 Orders Only GENERIC EXTERNAL DATA DEPARTMENT Provider, Generic External Data 06/09/2025 Telephone [facility] WALK[facility]IN CENTER [address] [place] [phone] Vianey Perez ANP Tracheostomy Tube Check 06/08/2025 Telephone [facility] CH[facility] MED & PEDS [address] [place] [address] Breana Raphael FNP Appointment Request 06/07/2025 5:00 PM EDT Office Visit [facility] [address] [place] [phone] Vianey Perez ANP Cough in adult patient (Primary Dx); SOB (shortness of breath) 06/07/2025 Telephone [facility] [address] [place] [phone] Vianey Perez ANP Triage 06/03/2025 Orders Only GENERIC EXTERNAL DATA DEPARTMENT [...] Access Q2 Not on file 06/24/2024 Comments No Sex and Gender Information Value Date Recorded Sex Assigned at Female 07/28/2022 10:17 AM EDT Legal Sex Female 10:17 AM EDT Gender Identity Female 07/28/2022 10:17 AM EDT Sexual Orientation Straight 07/28/2022 10 :17 AM EDT Last Filed Vital Signs Vital Sign Reading Time Taken Comments Blood Pressure 124/82 06/07/2025 4:46 PM EDT Pulse 91 06/07/2025 4:46 PM EDT Temperature 36.6 C (97.9 F) 06/07/2025 4:46 PM EDT Respiratory Rate 20 06/07/2025 4:46 PM EDT Oxygen Saturation 98% 06/07/2025 4:46 PM EDT Inhaled Oxygen Concentration - - Weight 81.2 kg (179 lb) 06/07/2025 4:46 PM EDT Height 160 cm (5' 3 ) 06/07/2025 4:46 PM EDT Body Mass Index 31.71 06/07/2025 4:46 PM EDT Plan of Treatment Upcoming Encounters Date Type Department Care Team (Late st Contact Info) Description 07/03/2025 3:30 PM EDT Office Visit [facility] CH[facility] MED & PEDS [address] [place] [address] WilmarBreana martinez, PRODUCTION SOLDERER [address] [place] [address] Health Maintenance Due Date Last Done Comments [...] 06/24/2024 SDOH Screening 06/24/2025 06/24/2024 Tobacco Screening 06/07/2026 06/07/2025 RSV Patients and Patients Aged 60 years [...] Procedure Name Priority Date/Time Associated Diagnosis Comments SLIDE REVIEW Routine 06/15/2025 2:22 PM EDT MAGNESIUM Routine 06/15/2025 2:22 PM EDT BASIC METABOLIC PANEL Routine 06/15/2025 2:22 PM EDT HEPATIC FUNCTION PANEL Routine 2:22 PM EDT HIGH SENSITIVITY TROPONIN I Routine 06/15/2025 2:22 PM EDT COVID-19 ID NOW (RAMSAY) Routine 06/15/2025 2:22 PM EDT CBC WITH AUTO DIFFERENTIAL Routine 06/15/2025 2:22 PM EDT INFLUENZA A B2 ID NOW (RAMSAY) Routine 06/15/2025 2:22 PM EDT POCT RAPID COVID ANTIGEN Routine 06/07/2025 5:00 PM EDT Cough in adult patient CT ABDOMEN PELVIS WO CONTRAST Routine 06/04/2025 4:20 AM EDT URINALYSIS, COMPLETE, WITH REFLEX TO CULTURE Routine 06/03/2025 10:02 PM EDT BASIC METABOLIC PANEL Routine 06/03/2025 9:58 PM EDT CBC WITH AUTO DIFFERENTIAL Routine 06/03/2025 9:58 PM EDT CULTURE, URINE, ROUTINE Routine 06/03/2025 12:00 AM EDT BI MAMMOGRAM SCREENING TOMOSYNTHESIS BILATERAL Routine 06/14/2024 8:45 AM EDT PROPHYLAXIS - ADULT Routine 01/21/2023 4 :00 PM EDT Encounter for dental examination Periodontal disease BITEWINGS - 2 RADIOGRAPHIC IMAGES Routine 01/21/2023 4:00 PM EDT Encounter for dental examination Periodontal disease from Last 3 Months or Most Recently Relevant to Health Maintenance Results * Influenza A B2 ID NOW (Ramsay) (06/15/2025 2:22 PM EDT) IDNOW SERIAL# [id number] [facility] Influenza A Negative Negative [facility] Influenza B2 Negative Negative [facility] Influenza A B2 Note See Note [facility] Comment:The Ramsay ID NOW In fluenza A B2 test is used for thequalitative detection of influenza A and B from patientswith signs and symptoms of respiratory infection.Negative results do not preclude influenza virus infectionand should not be used as the sole basis for diagnosis,treatment or other patient management decisions.There is a risk of false negative results due to thepresence of variants in the viral targets of the assay, lowlevels of virus in the specimen and co- infection withRespiratory Syncytial Virus. 06/15/2025 2:22 PM EDT 06/15/2025 2:27 PM EDT us Generic External Data Provider LAB MICROBIOLOGY - GENERAL ORDERABLES Final Result [facility] [address] [place] [phone] * Slide Review (06/15/2025 2:22 PM EDT) Slide Review VERIFIED [facility] 06/15/2025 2:22 PM EDT 06/15/2025 2:27 PM EDT us Generic External Data Provider LAB BLOOD ORDERAB LES Final Result Performing Organization Address [facility] Co de Phone Number [facility] [address] [place] [address] [phone] * COVID-19 ID NOW (RAMSAY) (06/15/2025 2:22 PM EDT) IDNOW SERIAL# [id number] [facility] COVID-19 TEST Negative Negative [facility] COVID-19 NOTE See Note [facility] Comment: Results are for the identification of SARS-CoV2 RNA. TheSARS-CoV2 RNA is generally detectable in respiratory samplesduring the acute phase of infection. Positive results areindicative of the presence of SARS-CoV-2 RNA; clinicalcorrelation with patient history and other diagnosticinformation is necessary to determine patient infectionstatus. Positive results do not rule out bacterial infectionor co- infection with other viruses.Testing facilities within the [facility] and itsterritories are required to report all positive results tothe appropriate public health authorities.Negative results should be treated as presumptive and, ifinconsistent with clinical signs and symptoms or necessaryfor patient management, should be tested with differentauthorized or cleared molecular tests. Negative results donot preclude SARS-CoV2 RNA infection and should not be usedas the sole basis for patient management decisions. Negativeresults should be considered in the context of a patient'srecent exposures, history and the presence of clinical signsand symptoms consistent with COVID-19.This test has been authorized by the FDA under an EmergencyUse Authorization (EUA) for use by authorized laboratories.Testing performed on the Ramsay ID NOW utilizing NAAT. 06/15/2025 2:22 PM EDT 06/15/2025 2:27 PM EDT us Generic External Data Provider LAB MOLECULAR KANE GNOSTICS ORDERABLES Final Result Performing Organization Address [facility]/ZIP Co de Phone Number [facility] [address] [place] [address] [phone] * High Sensitivity Troponin I (06/15/2025 2:22 PM EDT) [facility] TROPONIN I HIGH SENSITIVITY <2.7 <3.5 - 17.0 ng/L [facility] Comment:The Ramsay high sens itivity Troponin-I results should beused in conjunction with other diagnostic information suchas ECG, clinical observations and information, and patientsymptoms to aid in the diagnosis of ME. 06/15/2025 2:22 PM EDT 06/15/2025 2:27 PM EDT us Generic External Data Provider LAB BLOOD ORDERAB LES Final Result [facility] [address] [place] [address] [phone] * (ABNORMAL) CBC auto differential (06/15/2025 2:22 PM EDT) Only the most recent of2 resultswithin the time period is included. [facility] White Blood Count 16.1(H) 4.8 - 10.8 X10*3/uL [facility] Red Blood Count 5.02 4.20 - 5.50 X10*6/uL [facility] Hemoglobin 15.8 12.0 - 16.0 g/dl [facility] Hematocrit 44.2 37.0 - 47.0 % [facility] Mean Corpuscular Volume 88.0 80.0 - 98.0 fL [facility] Mean Corpuscular Hemoglobin 31.5 27.0 - 33.0 pg [facility] Mean Corpuscular HGB Conc 35.7(H) 31.0 - 35.0 g/dl [facility] Red Cell Distribution Width 12.3 11.0 - 16.0 % [facility] Platelet Count 360 160 - 400 X10*3/uL [facility] Mean Platelet Volume 9.3(L) 9.4 - 12.3 fL [facility] Neutrophils Percent Auto 60.6 45 - 73 % [facility] Imm Gran Pct Auto 0.6(H) 0.0 - 0.4 % [facility] Lymphocytes Percent Auto 33.4 20 - 40 % [facility] Monocytes Percent Auto 4.4 2 - 11 % [facility] Eosinophils Percent Auto 0.8 0 - 4 % [facility] Basophils Percent Auto 0.2 0 - 2 % [facility] NRBC Pct Auto 0.0 0.0 - 0.2 /100WBC [facility] Neutrophils Absolute Auto 9.8(H) 2.0 - 8.3 x10*3/uL [facility] Imm Gran Abs Auto 0.09(H) 0.00 - 0.03 X10*3/uL [facility] Lymphocytes Absolute Auto 5.4(H) 1.2 - 4.9 X10*3/uL [facility] Monocytes Absolute Auto 0.7 0.1 - 1.2 X10*3/uL [facility] Eosinophils Absolute Auto 0.1 0.0 - 0.4 X10*3/uL [facility] Basophils Absolute Auto 0.0 0.0 - 0.2 X10*3/uL [facility] NRBC Abs Auto 0.000 0.0 - 0.012 X10*3/uL [facility] 06/15/2025 2:22 PM EDT 06/15/2025 2:27 PM EDT us Generic External Data Provider LAB BLOOD ORDERAB LES Edited Result - Final [facility] [address] [place], [place] [phone] * Magnesium (06/15/2025 2:22 PM EDT) Magnesium 2.2 1.6 - 2.6 mg/dL [facility] 06/15/2025 2:22 PM EDT 06/15/2025 2:27 PM EDT Generic External Data Provider LAB BLOOD ORDERAB LES Final Result Performing Organization Address [facility] Co de Phone Number [facility] [address] [place] [phone] * Hepatic Function Panel (06/15/2025 2:22 PM EDT) Bilirubin, Total 0.4 0.0 - 1.0 mg/dL [facility] Bilirubin, Direct 0.1 0.0 - 0.5 mg/dL [facility] Aspartate Amino Transferase 15 5 - 31 U/L [facility] Alanine Aminotransferase 16 0 - 31 U/L [facility] Total Protein 6.8 6.5 - 8.0 g/dL [facility] Albumin Level 4.1 3.5 - 5.0 g/dL [facility] Alkaline Phosphatase 75 39 - 117 U/L [facility] 06/15/2025 2:22 PM EDT 06/15/2025 2:27 PM EDT Generic External Data Provider LAB BLOOD ORDERAB LES Final Result Performing Organization Address [facility] de Phone Number [facility] [address] [place] [phone] * (ABNORMAL) Basic Metabolic Panel (06/15/2025 2:22 PM EDT) Only the most recent of2 resultswithin the time period is included. Sodium 142 135 - 145 mmol/L [facility] Potassium 2.8(LL) 3.3 - 5.1 mmol/L [facility] Comment:Critical value for K : Results called to and read back by:VINICIUS Person calling: DOREEN Date: 06-15-25 Time: 1501 Chloride 106 96 - 108 mmol/L [facility] Carbon Dioxide 27 22 - 29 mmol/L [facility] Anion Gap 12 12 - 20 [facility] Urea Nitrogen (BUN) 16 9 - 16 mg/dL [facility] Creatinine, Serum 1.14 0.5 - 1.4 mg/dL [facility] Creatinine Clr Calc Pharmacy 57.0 [facility] Comment:Provided height and weight: 162.56 cm,72.575 kg.eGFR (calculated from the MDRD study equation) and eCrCl(calculated from the Cockcroft-Gault equation) are based ondifferent parameters and may not yield comparable results.If eCrCl result is absurd, please check patient'sheight/weight. Estimated Glomerular Filt Rate 50 [facility] Comment:Chronic Kidney Disea se: Estimated GFR < 60 mL/min/1.79h9Hlmels Kidney Disease: Estimated GFR < 15 mL/min/1.73m2 Glucose 142(H) 60 - 115 mg/dL [facility] Calcium 9.3 8.4 - 10.2 mg/dL [facility] 06/15/2025 2:22 PM EDT 06/15/2025 2:27 PM EDT Generic External Data Provider LAB BLOOD ORDERAB LES Final Result [facility] [address] [place] [phone] * POCT Rapid Covid-19 BinaxNOW (06/07/2025 5:00 PM EDT) Rapid COVID Ag Negative QC Media Lot # [id number] Lot# Expiration Date [id number] Swab 06/07/2025 5:00 PM EDT us Vianey Perez ANP POINT OF CARE TEST ENTER/EDIT OR DERABLES Final Result * CT Abdomen Pelvis w/o Contrast (06/04/2025 4:20 AM EDT) Anatomical Region Laterality Modality Body, Pelvis, Abdomen Computed T omography 06/04/2025 4:20 AM EDT Narrative 06/04/2025 4:22 AM EDT [address] [address] [address] Scan Report Signed Patient: Leanne Vega MR#: [id number] 46 : 1975 Acct:[id number] Age/Sex: 50 / F ADM Date: 06/04/25 Loc: HO.ED Attending Dr: Ordering Physician: Karlo Bedolla MD Date of Service: 06/04/25 Procedure(s): CT abdomen pelvis wo IV con Accession Number(s): [id number] cc: Karlo Bedolla MD; Breana Raphael [facility] Report Number: [id number]: Total DLP = 602.00 mGy-cm Reason for Exam: rt flank pain CLINICAL HISTORY: rt flank pain CT abdomen and pelvis without contrast Indication: Right flank pain Comparison: CT/SR - CT LUNG SCREENING - 11/29/24 16:48 EST Findings: No consolidation or effusion. No lung nodules. Spleen is normal. Pancreas is normal. Hepatic parenchyma is normal. Gallbladder is decompressed. The left kidney is normal. No nephrolithiasis or hydroureter. The right kidney is normal. No nephrolithiasis or periureteral stranding. Bladder is decompressed. There is a right bladder diverticulum. No bladder lithiasis. Noncontrasted small bowel is normal. Terminal ileum is normal. Appendix is not visualized. Large bowel is normal. Scattered diverticuli without evidence of diverticulitis. No focal bowel wall thickening. No adenopathy. Pelvic phleboliths are present. Pelvic contents are unremarkable. No acute fracture. IMPRESSION: No acute findings. No evidence of renal lithiasis or ureteral lithiasis. Scattered diverticuli without evidence of diverticulitis. This document has been electronically signed by: Oswaldo Elliott III, MD PHD on 06/04/2025 04:20:33 Dictated By: Oswaldo Elliott MD Signed By: <Electronically signed by Oswaldo Elliott MD in OV> 06/04/25420 DD/ 9 TD/TT: 06/04/25419 Ward Attendant: Procedure Note Donotuseinterpreter, Image - 06/04/2025 [facility] [address] [place] [phone] [address] Scan Report Signed Patient: Leanne Vega CMR#: [id number] [birth year] : 1975Acct:[id number] Age/Sex: 50 / FADM Date: 06/04/25 Loc: HO.ED Attending Dr: Ordering Physician: Karlo Bedolla MD Date of Service: 06/04/25 Procedure(s): CT abdomen pelvis wo IV con Accession Number(s): [id number] cc: Karlo Bedolla MD; Breana Raphael [facility] Report Number: [id number]: Total DLP = 602.00 mGy-cm Reason for Exam: rt flank pain CLINICAL HISTORY: rt flank pain CT abdomen and pelvis without contrast Indication: Right flank pain Comparison: CT/SR - CT LUNG SCREENING - 11/29/24 16:48 EST Findings: No consolidation or effusion. No lung nodules. Spleen is normal. Pancreas is normal. Hepatic parenchyma is normal. Gallbladder is decompressed. The left kidney is normal. No nephrolithiasis or hydroureter. The right kidney is normal. No nephrolithiasis or periureteral stranding. Bladder is decompressed. There is a right bladder diverticulum. No bladder lithiasis. Noncontrasted small bowel is normal. Terminal ileum is normal. Appendix is not visualized. Large bowel is normal. Scattered diverticuli without evidence of diverticulitis. No focal bowel wall thickening. No adenopathy. Pelvic phleboliths are present. Pelvic contents are unremarkable. No acute fracture. IMPRESSION: No acute findings. No evidence of renal lithiasis or ureteral lithiasis. Scattered diverticuli without evidence of diverticulitis. This document has been electronically signed by: Oswaldo Elliott III, MD PHD on 06/04/2025 04:20:33 Dictated By: Oswaldo Elliott MD Signed By: <Electronically signed by Oswaldo Elliott MD in OV> 06/04/25420 DD/ 9 TD/TT: 06/04/25419 Ward Attendant: [facility] External Provider IMG CT PROCEDURES Final Result * (ABNORMAL) Urinalysis, Complete, with Reflex to Culture (06/03/2025 10:02 PM EDT) Color Urine RED [facility] Appearance Urine Turbid [facility] PH 7.0 5.0 - 9.0 [facility] Glucose Urine UA Negative Negative mg/dL [facility] Urine Blood Large (3+)(A) Negative [facility] Specific [place] - Urine 1.020 1.005 - 1.025 [facility] Urine Protein See Note Neg-Trace mg/dL [facility] Comment:Urine pigment obscur ed dipstick results. Urine Ketones See Note Negative mg/dL [facility] Comment:Urine pigment obscur ed dipstick results. Nitrite Urine See Note Negative [facility] Comment:Urine pigment obscur ed dipstick results. Leukocyte Esterase Urine Moderate (2+)(A) Negative [facility] RBC Urine >20(A) 0 - 2 /HPF [facility] Urine WBC >50(A) 0 - 5 /HPF [facility] Urine Squamous Epithelial Cell 0-2 0 - 2 /HPF [facility] Urine Bacteria Trace None Seen [facility] Hyaline Casts, Urine 0-2 0 - 2 /LPF [facility] 06/03/2025 10:0 2 PM EDT 06/03/2025 10:06 PM EDT Narrative [facility] - 06/03/2025 10:29 PM EDT 2201Urine, Clean Catch us Generic External Data Provider LAB URINE ORDERAB LES Final Result [facility] [address] [place] [address] [phone] * Culture, Urine, Routine (06/03/2025 12:00 AM EDT) Urine Urine specimen obtained by clean catch procedure / Unknown 06/03/2025 06/03/2025 Comment:UACC Narrative [facility] - 06/06/2025 7:30 AM EDT Klebsiella pneumoniae Quant 10,000 to 50,000 cfu/mL Klebsiella pneumoniae: Ampicillin >=32(R) Klebsiella pneumoniae: Cefazolin 2(S) Klebsiella pneumoniae: Cefepime <=0.12(S) Klebsiella pneumoniae: Ceftriaxone <=0.25(S) Klebsiella pneumoniae: Ciprofloxacin <=0.06(S) Klebsiella pneumoniae: Gentamicin <=1(S) Klebsiella pneumoniae: Nitrofurantoin 64(I) Klebsiella pneumoniae: Trimethoprim/Sulfamethoxazole <=20(S) Specimen Source: Urine clean catch us Generic External Data Provider LAB MICROBIOLOGY - GENERAL ORDERABLES Final Result [facility] [address] [place] [phone] * BI Mammogram Screening Tomosynthesis Bilateral (06/14/2024 8:45 AM EDT) Anatomical Region Laterality Modality Breast Bilateral Mammography 06/14/2024 8:45 AM EDT Narrative 06/27/2024 3:57 PM EDT [address] [place] [address] Mammography Report Signed Patient: Leanne Vega MR#: [id number] [birth year] : 1975 Acct:[id number] Age/Sex: 49 / F ADM Date: 06/14/24 Loc: HO.MAMMO Attending Dr: Breana PARRA Ordering Physician: Breana Raphael Results: 2Benig n Findings Date of Service: 06/14/24 Follow Up: 1 Year From [facility] Mammogram Procedure(s): MM tomosynthesis screening BI Accession Number(s): [id number] cc: Breana Raphael EXAMINATION: MM SCREENING DIGITAL [...] Jasmin Koo DO 06/27/2024 03:54 PM EDT RP Dictated By: Jasmin Koo DO Signed By: <Electronically signed by Jasmin Koo DO in OV> 06/27/24 1554 DD/ 0845 TD/TT: 06/14/24 0900 Ward Attendant: Procedure Note Donotuseinterpreter, Image - 06/27/2024 [facility] [address] [place], [place] [address] Mammography Report Signed Patient: Leanne Vega CMR#: [id number] [birth year] : 1975Acct:[id number] Age/Sex: 49 / FADM Date: 06/14/24 Loc: NAYANA Attending Dr: Breana Raphael PRODUCTION SOLDERER Ordering Physician: Breana RaphaelPResults: 2Benig n Findings Date of Service: 06/14/24Follow Up: 1 Year From Orig ina Mammogram Procedure(s): MM tomosynthesis screening BI Accession Number(s): [id number] cc: Breana Raphael PRODUCTION SOLDERER EXAMINATION: MM SCREENING DIGITAL BREAST TOMOSYNTHESIS, BILATERAL [...] 06/27/24 1554 DD/ 0845 TD/TT: 06/14/24 0900 Ward Attendant: Breana Raphael PRODUCTION SOLDERER IMG BI PROCEDURES Final Result from Last 3 Months or Most Recently Relevant to Health Maintenance Insurance [facility] DENT[facility] MEDICAID STAND ADULT Care Teams Products Mechanical Design Engineer Relationship Specialty Start Date End Date Breana Raphael FNP [address] [place] [phone] PCP - General Family Medicine 03/27/22
--- OUTSIDE RECORDS SUMMARY | 2025-06-15 19:37 | XMS_ITS | Encounter Summary ---
Author Organization [employer] Address [address] [facility] 7[address] [place] [address] Care Team Providers Care Patient Relations Director Name Role Phone Breana Raphael FIDEL Primary Care Provider [phone] Encounter Details Date Type Department Care Team (Late st Contact Info) Description 06/15/2025 Orders Only GENERIC EXTERNAL DATA [...] as of this encounter Plan of Treatment Upcoming Encounters Date Type Department Care Team (Late st Contact Info) Description 07/03/2025 3:30 PM EDT Office Visit [facility] MED [facility] PEDS [address] [place], [place] [phone] Breana Raphael, HOT STAMP OPERATOR [address] [place] [address] documented as of this encounter Procedures Procedure Name Priority Date/Time Associated Diagnosis Comments INFLUENZA A B2 ID NOW (Tiny Pictures) Routine 06/15/2025 2:22 PM EDT SLIDE REVIEW Routine 06/15/2025 2:22 PM EDT COVID-19 ID NOW (Tiny Pictures) Routine 06/15/2025 2:22 PM EDT HIGH SENSITIVITY TROPONIN I Routine 06/15/2025 2:22 PM EDT CBC WITH AUTO DIFFERENTIAL Routine 06/15/2025 2:22 PM EDT MAGNESIUM Routine 06/15/2025 2:22 PM EDT HEPATIC FUNCTION PANEL Routine 06/15/2025 2:22 PM EDT BASIC METABOLIC PANEL Routine 06/15/2025 2:22 PM EDT documented in this encounter Results * Slide Review (06/15/2025 2:22 PM EDT) Slide Review VERIFIED [facility] 06/15/2025 2:22 PM EDT 06/15/2025 2:27 PM EDT Generic External Data Provider LAB BLOOD ORDERAB LES Final Result Performing Organization Address [facility] Co de Phone Number [facility] [address] [place] [phone] * Magnesium (06/15/2025 2:22 PM EDT) Pathologist [facility] [place] Magnesium 2.2 1.6 - 2.6 mg/dL [facility] 06/15/2025 2:22 PM EDT 06/15/2025 2:27 PM EDT Generic External Data Provider LAB BLOOD ORDERAB LES Final Result Performing Organization Address [facility] Co de Phone Number [facility] [address] [place] [phone] * (ABNORMAL) Basic Metabolic Panel (06/15/2025 2:22 PM EDT) [facility] Sodium 142 135 - 145 mmol/L [facility] Potassium 2.8(LL) 3.3 - 5.1 mmol/L [facility] Comment:Critical value for K : Results called to and read back by:VINICIUS Person calling: DOREEN Date: 06-15-25 Time: 1501 Chloride 106 96 - 108 mmol/L [facility] Carbon Dioxide 27 22 - 29 mmol/L [facility] Anion Gap 12 12 - 20 [facility] Urea Nitrogen (BUN) 16 9 - 16 mg/dL [facility] Creatinine, Serum 1.14 0.5 - 1.4 mg/dL [facility] Creatinine Clr Calc Pharmacy 57.0 [facility] Comment:Provided height and weight: 162.56 cm,72.575 kg.eGFR (calculated from the MDRD study equation) and eCrCl(calculated from the Cockcroft-Gault equation) are based ondifferent parameters and may not yield comparable results.If eCrCl result is absurd, please check patient'sheight/weight. Estimated Glomerular Filt Rate 50 [facility] Comment:Chronic Kidney Disea se: Estimated GFR < 60 mL/min/1.57t9Owfefj Kidney Disease: Estimated GFR < 15 mL/min/1.73m2 Glucose 142(H) 60 - 115 mg/dL [facility] Calcium 9.3 8.4 - 10.2 mg/dL [facility] 06/15/2025 2:22 PM EDT 06/15/2025 2:27 PM EDT Generic External Data Provider LAB BLOOD ORDERAB LES Final Result Performing Organization Address [facility] de Phone Number [facility] [address] [place] [phone] * Hepatic Function Panel (06/15/2025 2:22 PM EDT) Bilirubin, Total 0.4 0.0 - 1.0 mg/dL [facility] Bilirubin, Direct 0.1 0.0 - 0.5 mg/dL [facility] Aspartate Amino Transferase 15 5 - 31 U/L [facility] Alanine Aminotransferase 16 0 - 31 U/L [facility] Total Protein 6.8 6.5 - 8.0 g/dL [facility] Albumin Level 4.1 3.5 - 5.0 g/dL [facility] Alkaline Phosphatase 75 39 - 117 U/L [facility] 06/15/2025 2:22 PM EDT 06/15/2025 2:27 PM EDT Generic External Data Provider LAB BLOOD ORDERAB LES Final Result Performing Organization Address [facility] Co de Phone Number [facility] [address] [place] [phone] * High Sensitivity Troponin I (06/15/2025 2:22 PM EDT) TROPONIN I HIGH SENSITIVITY <2.7 <3.5 - 17.0 ng/L [facility] Comment:The Ramsay high sens itivity Troponin-I results should beused in conjunction with other diagnostic information suchas ECG, clinical observations and information, and patientsymptoms to aid in the diagnosis of SD. 06/15/2025 2:22 PM EDT 06/15/2025 2:27 PM EDT Generic External Data Provider LAB BLOOD ORDERAB LES Final Result Performing Organization Address [facility]/ZIP Co de Phone Number [facility] [address] [place] [phone] * Influenza A B2 ID NOW (Ramsay) (06/15/2025 2:22 PM EDT) Pathologist [facility] [place] IDNOW SERIAL# [id number] [facility] Influenza A Negative Negative [facility] Influenza B2 Negative Negative [facility] Influenza A B2 Note See Note [facility] Comment:The Rmasay ID NOW In fluenza A B2 test [...] LAB MICROBIOLOGY - GENERAL ORDERABLES Final Result Performing Organization Address [facility]/ZIP Co de Phone Number [facility] [address] [place] [phone] * COVID-19 ID NOW (RAMSAY) (06/15/2025 2:22 PM EDT) Pathologist [facility] [place] IDNOW SERIAL# [id number] [facility] COVID-19 TEST Negative Negative [facility] COVID-19 NOTE See Note [facility] Comment: Results are for the identification of SARS-CoV2 RNA. TheSARS-CoV2 RNA is generally detectable in respiratory samplesduring the acute phase of infection. Positive results areindicative of the presence of SARS-CoV-2 RNA; clinicalcorrelation with patient history and other diagnosticinformation is necessary to determine patient infectionstatus. Positive results do not rule out bacterial infectionor co- infection with other viruses.Testing facilities within the [facility] and itsterritories are required to report all [...] use by authorized laboratories.Testing performed on the [employer] NOW utilizing NAAT. 06/15/2025 2:22 PM EDT 06/15/2025 2:27 PM EDT us Generic External Data Provider LAB MOLECULAR KANE [employer] ORDERABLES Final Result [facility] [address] [place] [phone] * (ABNORMAL) CBC auto differential (06/15/2025 2:22 PM EDT) [facility] White Blood Count 16.1(H) 4.8 - 10.8 X10*3/uL [facility] Red Blood Count 5.02 4.20 - 5.50 X10*6/uL [facility] Hemoglobin 15.8 12.0 - 16.0 g/dl [facility] Hematocrit 44.2 37.0 - 47.0 % [facility] Mean Corpuscular Volume 88.0 80.0 - 98.0 fL [facility] Mean Corpuscular Hemoglobin 31.5 27.0 - 33.0 pg [facility] Mean Corpuscular HGB Conc 35.7(H) 31.0 - 35.0 g/dl [facility] Red Cell Distribution Width 12.3 11.0 - 16.0 % [facility] Platelet Count 360 160 - 400 X10*3/uL [facility] Mean Platelet Volume 9.3(L) 9.4 - 12.3 fL [facility] Neutrophils Percent Auto 60.6 45 - 73 % [facility] Imm Gran Pct Auto 0.6(H) 0.0 - 0.4 % [facility] Lymphocytes Percent Auto 33.4 20 - 40 % [facility] Monocytes Percent Auto 4.4 2 - 11 % [facility] Eosinophils Percent Auto 0.8 0 - 4 % [facility] Basophils Percent Auto 0.2 0 - 2 % [facility] NRBC Pct Auto 0.0 0.0 - 0.2 /100WBC [facility] Neutrophils Absolute Auto 9.8(H) 2.0 - 8.3 x10*3/uL [facility] Imm Gran Abs Auto 0.09(H) 0.00 - 0.03 X10*3/uL [facility] Lymphocytes Absolute Auto 5.4(H) 1.2 - 4.9 X10*3/uL [facility] Monocytes Absolute Auto 0.7 0.1 - 1.2 X10*3/uL [facility] Eosinophils Absolute Auto 0.1 0.0 - 0.4 X10*3/uL [facility] Basophils Absolute Auto 0.0 0.0 - 0.2 X10*3/uL [facility] NRBC Abs Auto 0.000 0.0 - 0.012 X10*3/uL [facility] 06/15/2025 2:22 PM EDT 06/15/2025 2:27 PM EDT us Generic External Data Provider LAB BLOOD ORDERAB LES Edited Result - Final [facility] [address] [place] [phone] documented in this encounter Visit Diagnoses Not on filedocumented in this encounter Additional Health Concerns Assessment Noted Time PHQ-9 Depression Total Score: 11 06/24/ 024 2:57 PM EDT documented as of this encounter Care Teams Patient Relations Director Relationship Specialty Start Date End Date Breana Raphael FNP [address] [place] [address] PCP - General Family Medicine 03/27/22 documented as of this encounter
== END 2025-06-15 19:39 | disposition left against medical advice (07) ==
PROVIDERS: Physician Assistant Medical; Emergency Provider Emergency Medicine; PCP Registered Nurse
DX: R06.02 Shortness of breath (principal); R06.00 Dyspnea, unspecified
CPT/HCPCS: 36415; 80048; 80076; 83735; 84484; 85025; 87502; 87635; 93005; 99283

== ENCOUNTER → 2025-06-15 14:04 | Outpatient (BNV) | payer MEDICAID, SELFPAY | PROVIDERS: Emergency Provider Emergency Medicine; PCP Registered Nurse; Visit Provider Internal Medicine | DX: I45.10 Unspecified right bundle-branch block (principal) | CPT/HCPCS: 93010 ==

== ENCOUNTER 2025-06-16 08:52 | Outpatient (REF) | payer MEDICAID, SELFPAY ==
--- NOTE | ~2025-06-16 | XR_ITS ---
EXAMINATION: XR CHEST CLINICAL INFORMATION: cough x 2 mos, smoker COMPARISON: 02/15/2024 TECHNIQUE: 2 views of the chest were obtained. FINDINGS: The cardiac, hilar, and mediastinal contours are normal. The lungs are clear bilaterally. There is no pneumothorax or pleural effusion. There is no focal osseous or soft tissue abnormality. There are old healed left rib fractures. XR/XR chest 2V IMPRESSION: No active pulmonary disease. Electronically signed by: Fernando Alonzo MD 06/16/2025 09:07 AM EDT
--- OUTSIDE RECORDS SUMMARY | 2025-06-16 09:36 | XMS_ITS | Encounter Summary ---
Author Organization [employer] Address [address] [facility] [address] [place] [address] Care Team Providers Care Jamb Cutter Name Role Phone Breana Raphael FIDEL Primary Care Provider Encounter Details Date Type Department Care Team [...] Upcoming Encounters Date Type Department Care Team ([facility] st Contact Info) Description 06/16/2025 10:00 AM EDT Office Visit [facility] WALK[facility] C[facility] [address] [place] [address] Arrived 07/03/2025 3:30 PM EDT Office Visit [facility] CHC MED & PEDS [address] [place] [address] Breana Raphael, RESPIRATORY CARE ASSISTANT [address] [place] [address] documented as of this encounter Procedures Procedure Name Priority Date/Time Associated Diagnosis Comments INFLUENZA A B2 ID NOW (RAMSAY) Routine 06/15/2025 2:22 PM EDT SLIDE REVIEW Routine 06/15/2025 2:22 PM EDT COVID-19 ID NOW (RAMSAY) Routine 06/15/2025 2:22 PM EDT HIGH SENSITIVITY TROPONIN I Routine 06/15/2025 2:22 PM EDT CBC WITH AUTO DIFFERENTIAL Routine 06/15/2025 2:22 PM EDT MAGNESIUM Routine 06/15/2025 2:22 PM EDT HEPATIC FUNCTION PANEL Routine 06/15/2025 2:22 PM EDT BASIC METABOLIC PANEL Routine 06/15/2025 2:22 PM EDT documented in this encounter Results * Slide Review (06/15/2025 2:22 PM EDT) Slide Review VERIFIED [facility] 06/15/2025 2:22 PM EDT 06/15/2025 2:27 PM EDT us Generic External Data Provider LAB BLOOD ORDERAB LES Final Result Performing Organization Address [facility]/ZIP Co de Phone Number [facility] [address] [place] [phone] * Magnesium (06/15/2025 2:22 PM EDT) Pathologist [facility] Magnesium 2.2 1.6 - 2.6 mg/dL [facility] 06/15/2025 2:22 PM EDT 06/15/2025 2:27 PM EDT Generic External Data Provider LAB BLOOD ORDERAB LES Final Result Performing Organization Address [facility] Co de Phone Number [facility] [address] [place] [address] [phone] * (ABNORMAL) Basic Metabolic Panel (06/15/2025 2:22 PM EDT) Pathologist [facility] Sodium 142 135 - 145 mmol/L [facility] Potassium 2.8(LL) 3.3 - 5.1 mmol/L [facility] Comment:Critical value for K : Results called to and read back by:VINICIUS Person calling: DOREEN Date: 06-15-25 Time: 1501 Chloride 106 96 - 108 mmol/L [facility] Carbon Dioxide 27 22 - 29 mmol/L [facility] Anion Gap 12 12 - 20 [facility] Urea Nitrogen (BUN) 16 9 - 16 mg/dL [facility] Creatinine, Serum 1.14 0.5 - 1.4 mg/dL [facility] Creatinine Clr Calc Pharmacy 57.0 [facility] Comment:Provided height and weight: 162.56 cm,72.575 kg.eGFR (calculated from the MDRD study equation) and eCrCl(calculated from the Cockcroft-Gault equation) are based ondifferent parameters and may not yield comparable results.If eCrCl result is absurd, please check patient'sheight/weight. Estimated Glomerular Filt Rate 50 [facility] Comment:Chronic Kidney Disea se: Estimated GFR < 60 mL/min/1.13m6Mjvnch Kidney Disease: Estimated GFR < 15 mL/min/1.73m2 Glucose 142(H) 60 - 115 mg/dL [facility] Calcium 9.3 8.4 - 10.2 mg/dL [facility] 06/15/2025 2:22 PM EDT 06/15/2025 2:27 PM EDT us Generic External Data Provider LAB BLOOD ORDERAB LES Final Result Performing Organization Address [facility] Co de Phone Number [facility] [address] [place] [phone] * Hepatic Function Panel (06/15/2025 2:22 PM EDT) Bilirubin, Total 0.4 0.0 - 1.0 mg/dL [facility] Bilirubin, Direct 0.1 0.0 - 0.5 mg/dL [facility] Aspartate Amino Transferase 15 5 - 31 U/L [facility] Alanine Aminotransferase 16 0 - 31 U/L [facility] Total Protein 6.8 6.5 - 8.0 g/dL [facility] Albumin Level 4.1 3.5 - 5.0 g/dL [facility] Alkaline Phosphatase 75 39 - 117 U/L [facility] 06/15/2025 2:22 PM EDT 06/15/2025 2:27 PM EDT us Generic External Data Provider LAB BLOOD ORDERAB LES Final Result Performing Organization Address [facility]/ZIP Co de Phone Number [facility] [address] [place] [phone] * High Sensitivity Troponin I (06/15/2025 2:22 PM EDT) Pathologist [facility] TROPONIN I HIGH SENSITIVITY <2.7 <3.5 - 17.0 ng/L [facility] Comment:The Ramsay high sens itivity Troponin-I results should beused in conjunction with other diagnostic information suchas ECG, clinical observations and information, and patientsymptoms to aid in the diagnosis of HI. 06/15/2025 2:22 PM EDT 06/15/2025 2:27 PM EDT us Generic External Data Provider LAB BLOOD ORDERAB LES Final Result Performing Organization Address [facility] Phone Number [facility] [address] [place] [address] [phone] * Influenza A B2 ID NOW (Ramsay) (06/15/2025 2:22 PM EDT) Pathologist [facility] IDNOW SERIAL# [id number] [facility] Influenza A Negative Negative [facility] Influenza B2 Negative Negative [facility] Influenza A B2 Note See Note [facility] Comment:The Ramsay ID NOW In [...] PM EDT Generic External Data Provider LAB MICROBIOLOGY - GENERAL ORDERABLES Final Result Performing Organization Address [facility] Co dc Phone Number [facility] [address] [place] [address] [phone] * COVID-19 ID NOW (RAMSAY) (06/15/2025 2:22 PM EDT) IDNOW SERIAL# [id number] [facility] COVID-19 TEST Negative Negative [facility] COVID-19 NOTE See Note [facility] Comment: Results are for the identification of SARS-CoV2 RNA. TheSARS-CoV2 RNA is generally detectable in respiratory samplesduring the acute phase of infection. Positive results areindicative of the presence of SARS-CoV-2 RNA; clinicalcorrelation with patient history and other diagnosticinformation is necessary to determine patient infectionstatus. Positive results do not rule out bacterial infectionor co- infection with other viruses.Testing facilities within the [facility] and itsterritories are required to report all [...] LAB MOLECULAR KANE [employer] ORDERABLES Final Result [facility] [address] [place] [phone] * (ABNORMAL) CBC auto differential (06/15/2025 2:22 PM EDT) White Blood Count 16.1(H) 4.8 - 10.8 X10*3/uL [facility] Red Blood Count 5.02 4.20 - 5.50 X10*6/uL [facility] Hemoglobin 15.8 12.0 - 16.0 g/dl [facility] Hematocrit 44.2 37.0 - 47.0 % [facility] Mean Corpuscular Volume 88.0 80.0 - 98.0 fL [facility] Mean Corpuscular Hemoglobin 31.5 27.0 - 33.0 pg [facility] Mean Corpuscular HGB Conc 35.7(H) 31.0 - 35.0 g/dl [facility] Red Cell Distribution Width 12.3 11.0 - 16.0 % [facility] Platelet Count 360 160 - 400 X10*3/uL [facility] Mean Platelet Volume 9.3(L) 9.4 - 12.3 fL [facility] Neutrophils Percent Auto 60.6 45 - 73 % [facility] Imm Gran Pct Auto 0.6(H) 0.0 - 0.4 % [facility] Lymphocytes Percent Auto 33.4 20 - 40 % [facility] Monocytes Percent Auto 4.4 2 - 11 % [facility] Eosinophils Percent Auto 0.8 0 - 4 % [facility] Basophils Percent Auto 0.2 0 - 2 % [facility] NRBC Pct Auto 0.0 0.0 - 0.2 /100WBC [facility] Neutrophils Absolute Auto 9.8(H) 2.0 - 8.3 x10*3/uL [facility] Imm Gran Abs Auto 0.09(H) 0.00 - 0.03 X10*3/uL [facility] Lymphocytes Absolute Auto 5.4(H) 1.2 - 4.9 X10*3/uL [facility] Monocytes Absolute Auto 0.7 0.1 - 1.2 X10*3/uL [facility] Eosinophils Absolute Auto 0.1 0.0 - 0.4 X10*3/uL [facility] Basophils Absolute Auto 0.0 0.0 - 0.2 X10*3/uL [facility] NRBC Abs Auto 0.000 0.0 - 0.012 X10*3/uL [facility] 06/15/2025 2:22 PM EDT 06/15/2025 2:27 PM EDT us Generic External Data Provider LAB BLOOD ORDERAB LES Edited Result - Final [facility] [address] [place] [phone] documented in this encounter Visit Diagnoses Not on filedocumented in this encounter Additional Health Concerns Assessment Noted Time PHQ-9 Depression Total Score: 11 024 2:57 PM EDT documented as of this encounter Care Teams Jamb Cutter Relationship Specialty Start Date End Date Breana Raphael FNP [address] [place] [address] PCP - General Family Medicine 03/27/22 documented as of this encounter
--- OUTSIDE RECORDS SUMMARY | 2025-06-16 09:36 | XMS_ITS | Encounter Summary ---
Author Organization [employer] Address [address] [place] [address] Care Team Providers Care Power Barker Operator Name Role Phone Breana Raphael FIDEL Primary Care Provider [phone] Encounter Details Date Type Department Care Team (Latest Contact Info) Description 06/16/2025 Travel Social History Tobacco Use Types Packs/Day Years [...] Care Team (Late st Contact Info) Description 06/16/2025 10:00 AM EDT Office Visit [facility] [address] [place] [address] Arrived 07/03/2025 3:30 PM EDT Office Visit [facility] MED & PEDS [address] [place] [address] Breana Raphael FNP [address] [place] [address] documented as of this encounter Visit Diagnoses Not on filedocumented in this encounter Additional Health Concerns Assessment Noted Time PHQ-9 Depression Total Score: 11 024 2:57 PM EDT documented as of this encounter Care Teams Power Barker Operator Relationship Specialty Start Date End Date Breana Raphael FNP [address] [place] [phone] PCP - General Family Medicine 03/27/22 documented as of this encounter
--- OUTSIDE RECORDS SUMMARY | 2025-06-16 09:37 | XMS_ITS | Clinical Summary ---
Author Organization [employer] Address [address] [facility] 7[address] [place] [address] Care Team Providers Care Maid Supervisor Name Role Phone Breana Raphael FIDEL Primary Care Provider [phone] Allergies No known active allergies Medications nicotine [...] 06/24/24 Colonoscopy: Referral to Dr. Zambrano at [facility] in May 2024 Pap: Last ~2009, denies [...] for her in the past -Referred to [facility] LDCT for lung CA screening 06/24/24 Assessment & Plan (02/05/2023 11:09 AM EDT): Typically 6-12 cigg/day (depends on stress level) Discussed available smoking cessation resources through [facility] Encounters Date Type Department Care Team Description 06/16/2025 10:00 AM EDT Office Visit [facility] [address] [place] [phone] Arrived 06/16/2025 Travel 06/15/2025 Orders Only GENERIC EXTERNAL DATA DEPARTMENT Provider, Generic External Data 06/09/2025 Telephone [facility] [address] [place] [phone] Bre Cho ANP Tracheostomy Tube Check 06/08/2025 Telephone [facility] PEDS [address] [place] [address] Breana Raphael FNP Appointment Request 06/07/2025 5:00 PM EDT Office Visit [facility] [address] [place] [phone] Bre Cho ANP Cough in adult patient (Primary Dx); SOB (shortness of breath) 06/07/2025 Telephone [facility] [address] [place] [phone] Bre Cho ANP Triage 06/03/2025 Orders Only GENERIC EXTERNAL [...] Sign Reading Time Taken Comments Blood Pressure 109/77 06/16/2025 9:07 AM EDT Pulse 96 06/16/2025 9:07 AM EDT Temperature 36.5 C (97.7 F) 06/16/2025 9:07 AM EDT Respiratory Rate 23 06/16/2025 9:07 AM EDT Oxygen Saturation 98% 06/16/2025 9:0 7 AM EDT room air Inhaled Oxygen Concentration - - Weight 78.5 kg (173 lb) 06/16/2025 9:07 AM EDT dressed with shoes Height 160 cm (5' 3 ) 06/07/2025 4:46 PM EDT Body Mass Index 30.65 06/07/2025 4:46 PM EDT Plan of Treatment Upcoming Encounters Date Type Department Care Team (Late st Contact Info) Description 06/16/2025 10:00 AM EDT Office Visit [facility] [address] [facility] [address] Arrived 07/03/2025 3:30 PM EDT Office Visit [facility] [address] [place] [address] Phalen, Breana, GUEST RELATIONS ASSOCIATE [address] [place] [address] Health Maintenance Due Date Last Done Comments [...] Screening 06/24/2025 06/24/2024 Tobacco Screening 06/07/2026 06/07/2025 Disability Screening 06/16/2026 06/16/2025 RSV Patients and Patients Aged 60 years [...] Procedure Name Priority Date/Time Associated Diagnosis Comments XR CHEST 2 VIEWS Routine 06/16/2025 9:00 AM EDT SOB (shortness of breath) SLIDE REVIEW Routine 06/15/2025 2:22 PM EDT [...] Recently Relevant to Health Maintenance Results * XR Chest 2 Views (06/16/2025 9:00 AM EDT) Anatomical Region Laterality Modality Chest Radiographic Lary ging 06/16/2025 9:00 AM EDT Narrative 06/16/2025 9:10 AM EDT [address] [address] XRay Report Signed Patient: Leanne Vega MR#: [id number] 46 : 1975 Acct:[id number] Age/Sex: 50 / F ADM Date: 06/16/25 Loc: HO.HHCX Attending Dr: Bre Cho NP Ordering Physician: BRE CHO NP Date of Service: 06/16/25 Procedure(s): XR chest 2V Accession Number(s): [id number] cc: BRE CHO NP Reason for Exam: cough x 2 mos, smoker EXAMINATION: XR CHEST CLINICAL INFORMATION: cough x 2 mos, smoker COMPARISON: 02/15/2024 TECHNIQUE: 2 views of the chest were obtained. FINDINGS: The cardiac, hilar, and mediastinal contours are normal. The lungs are clear bilaterally. There is no pneumothorax or pleural effusion. There is no focal osseous or soft tissue abnormality. There are old healed left rib fractures. XR/XR chest 2V IMPRESSION: No active pulmonary disease. Electronically signed by: Fernando Alonzo MD 06/16/2025 09:07 AM EDT RP Dictated By: Fernando Alonzo MD Signed By: <Electronically signed by Fernando Alonzo MD in OV> 06/16/25906 DD/ 9 TD/TT: 06/16/25902 Machine Tool Electrician: Procedure Note Donotuseinterpreter, Image - 06/16/2025 [place] [address] XRay Report Signed Patient: Leanne Vega CMR#: [id number] 46 : 1975Acct:[id number] Age/Sex: 50 / FADM Date: 06/16/25 Loc: HO.HHCX Attending Dr: Bre Cho NP Ordering Physician: BRE CHO NP Date of Service: 06/16/25 Procedure(s): XR chest 2V Accession Number(s): [id number] cc: BRE CHO NP Reason for Exam: cough x 2 mos, smoker EXAMINATION: XR CHEST CLINICAL INFORMATION: cough x 2 mos, smoker COMPARISON: 02/15/2024 TECHNIQUE: 2 views of the chest were obtained. FINDINGS: The cardiac, hilar, and mediastinal contours are normal. The lungs are clear bilaterally. There is no pneumothorax or pleural effusion. There is no focal osseous or soft tissue abnormality. There are old healed left rib fractures. XR/XR chest 2V IMPRESSION: No active pulmonary disease. Electronically signed by: Fernando Alonzo MD 06/16/2025 09:07 AM EDT RP Dictated By: Fernando Alonzo MD Signed By: <Electronically signed by Fernando Alonzo MD in OV> 06/16/25906 DD/ 09 TD/TT: 06/16/25 0903 Machine Tool Electrician: us Bre BURNETTE XR PROCEDURES Edited Result - Final * Influenza A B2 ID NOW (Ramsay) (06/15/2025 2:22 PM EDT) IDNOW SERIAL# [id number] [facility] Influenza A Negative Negative [facility] Influenza B2 Negative Negative [facility] Influenza A B2 Note See Note [facility] Comment:The Ramsay ID NOW In [...] GENERAL ORDERABLES Final Result Performing Organization Address [facility]/ZIP Co de Phone Number [facility] [address] [place] [phone] * Slide Review (06/15/2025 2:22 PM EDT) Slide Review VERIFIED [facility] 06/15/2025 2:22 PM EDT 06/15/2025 2:27 PM EDT us Generic External Data Provider LAB BLOOD ORDERAB LES Final Result Performing Organization Address [facility]/ZIP Co de Phone Number [facility] [address] [place] [phone] * COVID-19 ID NOW (RAMSAY) (06/15/2025 2:22 PM EDT) IDNOW SERIAL# [id number] [facility] COVID-19 TEST Negative Negative [facility] COVID-19 NOTE See Note [facility] Comment: Results are for the identification of SARS-CoV2 RNA. TheSARS-CoV2 RNA is generally detectable in respiratory samplesduring the acute phase of infection. Positive results areindicative of the presence of SARS-CoV-2 RNA; clinicalcorrelation with patient history and other diagnosticinformation is necessary to determine patient infectionstatus. Positive results do not rule out bacterial infectionor co- infection with other viruses.Testing facilities within the [facility] and [facility] are required to report all positive results [...] use by authorized laboratories.Testing performed on the [place] ID NOW utilizing NAAT. 06/15/2025 2:22 PM EDT 06/15/2025 2:27 PM EDT us Generic External Data Provider LAB MOLECULAR KANE GNOSTICS ORDERABLES Final Result [facility] [address] [place] [address] [phone] * High Sensitivity Troponin I (06/15/2025 2:22 PM EDT) Pathologist [facility] TROPONIN I HIGH SENSITIVITY <2.7 <3.5 - 17.0 ng/L [facility] Comment:The Ramsay high sens itivity Troponin-I results should beused in conjunction with other diagnostic information suchas ECG, clinical observations and information, and patientsymptoms to aid in the diagnosis of [place]. 06/15/2025 2:22 PM EDT 06/15/2025 2:27 PM EDT us Generic External Data Provider LAB BLOOD ORDERAB LES Final Result [facility] [address] [place] [address] [phone] * (ABNORMAL) CBC auto differential (06/15/2025 2:22 PM EDT) Only the most recent of2 resultswithin the time period is included. White Blood Count 16.1(H) 4.8 - 10.8 X10*3/uL [facility] Red Blood Count 5.02 4.20 - 5.50 X10*6/uL [facility] Hemoglobin 15.8 12.0 - 16.0 g/dl [facility] Hematocrit 44.2 37.0 - 47.0 % [facility] Mean Corpuscular Volume 88.0 80.0 - 98.0 fL [facility] Mean Corpuscular Hemoglobin 31.5 27.0 - 33.0 pg [facility] Mean Corpuscular HGB Conc 35.7(H) 31.0 - 35.0 g/dl [facility] Red Cell Distribution Width 12.3 11.0 - 16.0 % [facility] Platelet Count 360 160 - 400 X10*3/uL [facility] Mean Platelet Volume 9.3(L) 9.4 - 12.3 fL [facility] Neutrophils Percent Auto 60.6 45 - 73 % [facility] Imm Gran Pct Auto 0.6(H) 0.0 - 0.4 % [facility] Lymphocytes Percent Auto 33.4 20 - 40 % [facility] Monocytes Percent Auto 4.4 2 - 11 % [facility] Eosinophils Percent Auto 0.8 0 - 4 % [facility] Basophils Percent Auto 0.2 0 - 2 % [facility] NRBC Pct Auto 0.0 0.0 - 0.2 /100WBC [facility] Neutrophils Absolute Auto 9.8(H) 2.0 - 8.3 x10*3/uL [facility] Imm Gran Abs Auto 0.09(H) 0.00 - 0.03 X10*3/uL [facility] Lymphocytes Absolute Auto 5.4(H) 1.2 - 4.9 X10*3/uL [facility] Monocytes Absolute Auto 0.7 0.1 - 1.2 X10*3/uL [facility] Eosinophils Absolute Auto 0.1 0.0 - 0.4 X10*3/uL [facility] Basophils Absolute Auto 0.0 0.0 - 0.2 X10*3/uL [facility] NRBC Abs Auto 0.000 0.0 - 0.012 X10*3/uL [facility] 06/15/2025 2:22 PM EDT 06/15/2025 2:27 PM EDT us Generic External Data Provider LAB BLOOD ORDERAB LES Edited Result - Final Performing Organization Address [facility]/ZIP Co de Phone Number [facility] [address] [place] [phone] * Magnesium (06/15/2025 2:22 PM EDT) Magnesium 2.2 1.6 - 2.6 mg/dL [facility] 06/15/2025 2:22 PM EDT 06/15/2025 2:27 PM EDT us Generic External Data Provider LAB BLOOD ORDERAB LES Final Result Performing Organization Address [facility]/ZIP Co de Phone Number [facility] [address] [place] [phone] * Hepatic Function Panel (06/15/2025 2:22 PM EDT) Bilirubin, Total 0.4 0.0 - 1.0 mg/dL [facility] Bilirubin, Direct 0.1 0.0 - 0.5 mg/dL [facility] Aspartate Amino Transferase 15 5 - 31 U/L [facility] Alanine Aminotransferase 16 0 - 31 U/L [facility] Total Protein 6.8 6.5 - 8.0 g/dL [facility] Albumin Level 4.1 3.5 - 5.0 g/dL [facility] Alkaline Phosphatase 75 39 - 117 U/L [facility] 06/15/2025 2:22 PM EDT 06/15/2025 2:27 PM EDT us Generic External Data Provider LAB BLOOD ORDERAB LES Final Result [facility] [address] [place] [address] [phone] * (ABNORMAL) Basic Metabolic Panel (06/15/2025 2:22 PM EDT) Only the most recent of2 resultswithin the time period is included. Sodium 142 135 - 145 mmol/L [facility] Potassium 2.8(LL) 3.3 - 5.1 mmol/L [facility] Comment:Critical value for K : Results called to and read back by:VINICIUS Person calling: DOREEN Date: 06-15-25 Time: 1501 Chloride 106 96 - 108 mmol/L [facility] Carbon Dioxide 27 22 - 29 mmol/L [facility] Anion Gap 12 12 - 20 [facility] Urea Nitrogen (BUN) 16 9 - 16 mg/dL [facility] Creatinine, Serum 1.14 0.5 - 1.4 mg/dL [facility] Creatinine Clr Calc Pharmacy 57.0 [facility] Comment:Provided height and weight: 162.56 cm,72.575 kg.eGFR (calculated from the MDRD study equation) and eCrCl(calculated from the Cockcroft-Gault equation) are based ondifferent parameters and may not yield comparable results.If eCrCl result is absurd, please check patient'sheight/weight. Estimated Glomerular Filt Rate 50 [facility] Comment:Chronic Kidney Disea se: Estimated GFR < 60 mL/min/1.35w1Muqrlg Kidney Disease: Estimated GFR < 15 mL/min/1.73m2 Glucose 142(H) 60 - 115 mg/dL [facility] Calcium 9.3 8.4 - 10.2 mg/dL [facility] 06/15/2025 2:22 PM EDT 06/15/2025 2:27 PM EDT us Generic External Data Provider LAB BLOOD ORDERAB LES Final Result [facility] [address] [place] [phone] * POCT Rapid Covid-19 BinaxNOW (06/07/2025 5:00 PM EDT) [facility] Rapid COVID Ag Negative QC Media Lot # [id number] Lot# Expiration Date [id number] Swab 06/07/2025 5:00 PM EDT us Bre Cho ANP POINT OF CARE TEST ENTER/EDIT OR DERABLES Final Result * CT Abdomen Pelvis w/o Contrast (06/04/2025 4:20 AM EDT) Anatomical Region Laterality Modality Body, Pelvis, Abdomen Computed T omography 06/04/2025 4:20 AM EDT Narrative 06/04/2025 4:22 AM EDT [address] [address] [address] Scan Report Signed Patient: Leanne Vega MR#: [id number] 46 : 1975 Acct:[id number] Age/Sex: 50 / F ADM Date: 06/04/25 Loc: .ED Attending Dr: Ordering Physician: Karlo Bedolla MD Date of Service: 06/04/25 Procedure(s): CT abdomen pelvis wo IV con Accession Number(s): [id number] cc: Karlo Bedolla MD; Breana Raphael [facility] Report Number: [id number]: Total DLP = 602.00 mGy-cm Reason for [...] signed by Oswaldo Elliott MD in OV> 06/04/25 042 DD/ 0420 TD/TT: 06/04/25 0420 Machine Tool Electrician: Procedure Note Donotuseinterpreter, Image - 06/04/[address] [place] [address] [address] Scan Report Signed Patient: Leanne Vega CMR#: [id number] 46 : 1975Acct:[id number] Age/Sex: 50 / FADM Date: 06/04/25 Loc: HO.ED Attending Dr: Ordering Physician: Karlo Bedolla MD Date of Service: 06/04/25 Procedure(s): CT abdomen pelvis wo IV con Accession Number(s): [id number] cc: Karlo Bedolla MD; Breana Raphael [facility] Report Number: [id number]: Total DLP = 602.00 mGy-cm Reason for [...] Oswaldo Elliott MD in OV> 06/04/25420 DD/ 042 TD/TT: 06/04/25 042 Machine Tool Electrician: [facility] External Provider IMG CT PROCEDURES Final Result * (ABNORMAL) Urinalysis, Complete, with Reflex to Culture (06/03/2025 10:02 PM EDT) Color Urine RED [facility] Appearance Urine Turbid [facility] PH 7.0 5.0 - 9.0 [facility] Glucose Urine UA Negative Negative mg/dL [facility] Urine Blood Large (3+)(A) Negative [facility] Specific [place] - Urine 1.020 1.005 - 1.025 [facility] Urine Protein See Note Neg-Trace mg/dL [facility] Comment:Urine pigment obscur ed dipstick results. Urine Ketones See Note Negative mg/dL [facility] Comment:Urine pigment obscur ed dipstick results. Nitrite Urine See Note Negative [facility] Comment:Urine pigment obscur ed dipstick results. Leukocyte Esterase Urine Moderate (2+)(A) Negative [facility] RBC Urine >20(A) 0 - 2 /HPF [facility] Urine WBC >50(A) 0 - 5 /HPF [facility] Urine Squamous Epithelial Cell 0-2 0 - 2 /HPF [facility] Urine Bacteria Trace None Seen [facility] Hyaline Casts, Urine 0-2 0 - 2 /LPF [facility] 06/03/2025 10:0 2 PM EDT 06/03/2025 10:06 PM EDT Narrative [facility] - 06/03/2025 10:29 PM EDT 2201Urine, Clean Catch Generic External Data Provider LAB URINE ORDERAB LES Final Result Performing Organization Address City/State/[facility] Co de Phone Number [facility] [address] [place] [phone] * Culture, Urine, Routine (06/03/2025 12:00 AM EDT) Urine Urine specimen obtained by clean catch procedure / Unknown 06/03/2025 06/03/2025 Comment:UACC Narrative [facility] - 06/06/2025 7:30 AM EDT Klebsiella pneumoniae Quant 10,000 to 50,000 cfu/mL Klebsiella pneumoniae: Ampicillin >=32(R) Klebsiella pneumoniae: Cefazolin 2(S) Klebsiella pneumoniae: Cefepime <=0.12(S) Klebsiella pneumoniae: Ceftriaxone <=0.25(S) Klebsiella pneumoniae: Ciprofloxacin <=0.06(S) Klebsiella pneumoniae: Gentamicin <=1(S) Klebsiella pneumoniae: Nitrofurantoin 64(I) Klebsiella pneumoniae: Trimethoprim/Sulfamethoxazole <=20(S) Specimen Source: Urine clean catch Generic External Data Provider LAB MICROBIOLOGY - GENERAL ORDERABLES Final Result [facility] [address] [place] [address] [phone] * BI Mammogram Screening Tomosynthesis Bilateral (06/14/2024 8:45 AM EDT) Anatomical Region Laterality Modality Breast Bilateral Mammography 06/14/2024 8:45 AM EDT Narrative 06/27/2024 3:57 PM EDT [facility] [address] [place] [address] Mammography Report Signed Patient: Leanne Vega MR#: [id number] 46 : 1975 Acct:[id number] Age/Sex: 49 / F ADM Date: 06/14/24 Loc: MAMMO Attending Dr: Breana Raphael GUEST RELATIONS ASSOCIATE Ordering Physician: Breana Raphael Results: 2Benig n Findings Date of Service: 06/14/24 Follow Up: 1 Year From Orig ina Mammogram Procedure(s): MM tomosynthesis screening BI Accession Number(s): [id number] cc: Breana Raphael GUEST RELATIONS ASSOCIATE EXAMINATION: MM SCREENING DIGITAL BREAST TOMOSYNTHESIS, BILATERAL [...] 06/27/24 1554 DD/ 0845 TD/TT: 06/14/24 0900 Machine Tool Electrician: Procedure Note Donotuseinterpreter, Image - 06/27/2024 [facility] [address] [place] [address] Mammography Report Signed Patient: Leanne Vega CMR#: [id number] 46 : 1975Acct:[id number] Age/Sex: 49 / FADM Date: 06/14/24 Loc: HO.MAMMO Attending Dr: Breana Raphael GUEST RELATIONS ASSOCIATE Ordering Physician: Breana RaphaelPResults: 2Benig n Findings Date of Service: 06/14/24Follow Up: 1 Year From Orig ina Mammogram Procedure(s): MM tomosynthesis screening BI Accession Number(s): [id number] cc: Breana Raphael GUEST RELATIONS ASSOCIATE EXAMINATION: MM SCREENING DIGITAL BREAST TOMOSYNTHESIS, BILATERAL [...] 06/27/24 1554 DD/ 0845 TD/TT: 06/14/24 0900 Machine Tool Electrician: Breanaradha Raphael GUEST RELATIONS ASSOCIATE IMG BI PROCEDURES Final Result from Last 3 Months or Most Recently Relevant to Health Maintenance Insurance [facility] MEDICAID STAND ADULT Care Teams Maid Supervisor Relationship Specialty Start Date End Date Breana Raphael FNP [address] [place] [phone] PCP - General Family Medicine 03/27/22
--- OUTSIDE RECORDS SUMMARY | 2025-06-16 10:00 | XMS_ITS | Encounter Summary ---
Author Organization [employer] Address [address] [place] [address] Care Team Providers Care Publicity Person Name Role Phone Breana Raphael TRANSPLANT CASE MANAGER Primary Care Provider [phone] Encounter Details Date Type Department Care Team ([facility] st Contact Info) Description 06/16/2025 10:00 AM EDT Office Visit [facility] [address] [place] [address] Arrived Social History Tobacco Use Types Packs/Day Years [...] AM EDT documented as of this encounter Last Filed Vital Signs Vital Sign Reading [...] 9:07 AM EDT dressed with shoes Height - - Body Mass Index 30.65 06/07/2025 4:46 PM EDT documented in this encounter Plan of Treatment Upcoming Encounters Date Type Department Care Team (Late st Contact Info) Description 07/03/2025 3:30 PM EDT Office Visit [facility] [address] [place] [address] Breana Raphael FNP [address] [place] [address] documented as of this encounter Visit Diagnoses Not on filedocumented in this encounter Additional Health Concerns Assessment Noted Time PHQ-9 Depression Total Score: 11 024 2:57 PM EDT documented as of this encounter Care Teams Publicity Person Relationship Specialty Start Date End Date Breana Raphael FNP [address] [place] [phone] PCP - General Family Medicine 03/27/22 documented as of this encounter
== END 2025-06-16 08:53 | disposition home or self-care (01) ==
LOC: HO.HHCX 08:52
PROVIDERS: Visit Provider Nurse Practitioner Primary Care
DX: R06.02 Shortness of breath (principal)
CPT/HCPCS: 71046

== ENCOUNTER → 2025-06-16 08:52 | Outpatient (BNV) | payer MEDICAID, SELFPAY | PROVIDERS: Visit Provider Radiology Diagnostic Radiology | DX: R05.9 Cough, unspecified (principal); R06.00 Dyspnea, unspecified; D72.829 Elevated white blood cell count, unspecified; F17.200 Nicotine dependence, unspecified, uncomplicated | CPT/HCPCS: 71046; 71260 ==

== ENCOUNTER 2025-06-16 10:14 | Emergency (ER) | payer MEDICAID, SELFPAY ==
--- NOTE | ~2025-06-16 | CT_ITS ---
EXAMINATION: CT CHEST WITH CONTRAST CLINICAL INFORMATION: Cough, dyspnea, leukocytosis COMPARISON: Same-day chest x-ray and CT November 29, 2024 TECHNIQUE: Multidetector volumetric CT imaging of the chest was obtained after the administration of 65 mL of Omnipaque 350 intravenous contrast without immediate adverse reactions. Axial MIP volume rendering provided. Sagittal and coronal reformatted images were obtained. This CT examination was performed using dose optimization techniques as appropriate, variously including the following: *Automated exposure control *Adjustment of mA and/or kV according to patient size (this includes techniques or standardized protocols for targeted exams where dose is matched to indication/reason for exam; i.e. extremities or head) *Use of iterative reconstruction technique FINDINGS: LUNGS: Stable linear scarring and or atelectasis present in the posterior basilar right lower lobe and posterolateral left lower lobe. MEDIASTINUM: The mediastinum is unremarkable. PLEURA: There is no pleural effusion. No pleural mass or thickening. AXILLA: No lymphadenopathy. UPPER ABDOMEN: There is a 12 mm hypodensity in the left lateral margin of the liver measuring 3 Hounsfield units cyst with a simple hepatic cyst. It appears unchanged. There is similar smaller lesion in the left medial hepatic segment. The upper abdomen is otherwise unremarkable. OSSEOUS STRUCTURES: The posterior left seventh and eighth rib fractures are again noted. CT/CT chest w IV con IMPRESSION: Unremarkable examination. Fleischner guidelines were followed. Electronically signed by: Vikas Hoang MD 06/16/2025 02:26 PM EDT
--- NOTE | 2025-06-16 10:26 | ED_ITS ---
HPI - General Adult General Chief complaint: Upper Respiratory Symptoms Stated complaint: SOB X 2 WKS,BACK PAIN PER EMS Time Seen by Provider: 06/16/25 10:16 Source: patient, EMS, RN notes reviewed and old records reviewed Mode of arrival: EMS Limitations: no limitations History of Present Illness ED Provider: Carey HPI narrative: Patient is a 50-year-old female with history of smoking, PE 10yrs ago, not currently anticoagulated presenting to the ED with complaint of cough since March with recent increased shortness of breath and wheezing. States that she becomes lightheaded when she takes a deep breath. Has still been smoking normal amount of cigarettes. Recenty treated for pyelonephritis, want to walk-in, not treated with additional antibiotics for her cough. Presented here yesterday but left from waiting room due to wait time. Went back to walk-in this morning, had chest x-ray and labs from yesterday reviewed, was told to come to the ED. MD complaint: shortness of breath Related Data Previous Rx's ?Medication ?Instructions ?Recorded sodium,potassium,mag sulfates 17.5 See Rx Instructions PO .COMPLEX 07/28/24 gram-3.13 gram-1.6 gram oral soln #354 mL (Suprep Bowel Prep Kit) ketorolac 10 mg tablet 10 mg PO TID PRN pain #10 ta bs 06/04/25 levofloxacin 500 mg tablet 500 mg PO DAILY #9 tabs 04/21 albuterol sulfate 90 mcg/actuation 2 puff inhalation Q 4-6H PRN 06/16/25 aerosol inhaler (Ventolin HFA) shortness of breath or wheezing #6.7 grams azithromycin 250 mg tablet See Rx Instructions PO .COM PLEX #6 06/16/25 tabs prednisone 10 mg tablet See Rx Instructions .Route 0 06/16/25 .COMPLEX #15 tabs Allergies Allergy/AdvReac Type Severity Reaction Status Date / Time No Known Allergies Allergy Verified 06/16/25 10:34 Review of Systems 2 Review of Systems: As per HPI Yes all other systems are reviewed and are negative Constitutional: Constitutional: Reports as per HPI [facility] Past Medical History Medical History (Updated 06/16/25 @ 15:08 by Farzaneh Patino NP) Colon cancer screening History of pulmonary embolus (PE) (~03/2010) Nicotine dependence, cigarettes, uncomplicated Thrombosed external hemorrhoid Surgical History History of tubal ligation History of Social History Social History Alcohol intake: never Patient Tobacco Use Status: Current everyday Tobacco user Cigarettes Per Day: 10 Years Smoked: (onset 12yo, 1-1.5ppd x 37yrs, now1/2ppd - 45pyh) Smoked in Last 30 Days: Yes Use of substances other than those prescribed or required for medical reasons: No Advance Directives: No Advance Directives Information Provided: No Physical Exam ED Vital Signs: Vital Signs - 24 hr 06/16/25 10:35 06/16/25 10:35 06/16/25 11:12 Temperature Pulse Rate 77 67 Respiratory Rate 26 H 18 Blood Pressure 116/75 Pulse Oximetry 100 100 Oxygen Delivery Method Nasal Cannula Nasal Cannula Oxygen Flow Rate 2 06/16/25 12:44 06/16/25 14:00 Temperature 98.0 F Pulse Rate 105 H 91 Respiratory Rate 16 16 Blood Pressure 114/53 L 100/56 L Pulse Oximetry 99 97 Oxygen Delivery Method Room Air Room Air Oxygen Flow Rate BMI result Body Mass Index 31.4 Vital signs have been reviewed and appear to be correct. Blood pressure normal. Heart rate slightly tachycardic. Respiratory rate tachypneic. Temperature normal. Oxygen saturation normal. Const General: cooperative, healthy appearing and no acute distress Orientation/consciousness: oriented to person, oriented to place, oriented to time and patient oriented x3 Limitations: no limitations HENMT Head: Yes normocephalic and Yes atraumatic Ears: external ears normal General nose exam: Normal external nose present Face and sinus: Yes face symmetric Mouth: oropharynx normal and moist mucous membranes Throat: Yes uvula midline Eyes Pupils: Equal, round and reactive pupils present Neck Neck: Yes normal visual inspection and Yes supple Resp Effort & Inspection: normal respiratory effort and not able to speak in complete sentences (speaking a few words at a time) Auscultation: wheezes inspiratory wheezes and throughout and diminished lung sounds diffuse Cardio Rate: regular rate Rhythm: regular rhythm Heart sounds: S1 normal heart sound present and S2 normal heart sound present GI Palpation (GI): Soft to palpation and nontender Auscultation: normoactive bowel sounds General: Yes no CVA tenderness Back/Spine/Pelvis Back: no CVA tenderness Skin General skin exam: elasticity normal and turgor normal Neuro General: oriented to person, oriented to place, oriented to time, patient oriented x3, moves all extremities, no focal motor deficits and CN's II-XI intact bilaterally Cranial nerves: Yes Equal, round and reactive pupils present Cognition (Neuro): normal cognition Extrem General: Yes full ROM, Yes no pedal edema and Yes no calf tenderness Psych Mental Status: mental status grossly normal Affect: normal affect Thought process: Normal thought process present Medications Administered Discontinued Medications Generic Name Dose Route Start Last Admin Trade Name Freq PRN Reason Stop Dose Admin Albuterol Sulfate 2.5 mg/ 5 mg 06/16/25 11:05 06/16/25 11:11 Albuterol Sulfate 2.5 mg INHALE 06/16/25 11:06 5 mg ONCE ONE Administration Iohexol 100 ml 06/16/25 14:13 06/16/25 14:13 Iohexol 350 Mg/Ml 100 Ml Infus..Btl IV 06/16/25 14:14 65 ml ONCE ONE Administration Potassium Chloride 40 meq 06/16/25 11:17 06/16/25 13:01 Potassium Chloride Packet 20 Meq Packet PO 06/16/25 11:18 40 meq ONCE ONE Administration Medical Decision Making Medical Decision Making [facility] Narrative: Patient is a 50-year-old female with history of smoking, PE 10yrs ago, not currently anticoagulated presenting to the ED with complaint of cough since March with recent increased shortness of breath and wheezing. On exam patient is awake, A+Ox3, mildly tachycardic and tachypneic, afebrile, normal neurological exam without focal deficits, physical exam findings as above. Given reported symptoms and physical exam findings, initial differential includes but is not limited to bronchitis, pneumonia, viral illness, anemia, PE. Labs notable for leukocytosis, no anemia, negative D-dimer. PE unlikely. Viral serology negative. X-ray chest notable for no evidence of pneumonia. CT chest also negative for pneumonia. My interpretation is in agreement with the radiologist's interpretation. Results discussed with patient all questions answered. Treat for bronchitis with azithromycin, prednisone taper, albuterol inhaler. Advised follow up with PCP this week. Return precautions discussed. Patient verbalized understanding of and agreement with plan. Differential Diagnosis Differential Diagnoses: The differential diagnosis associated with the presentation includes as per [facility] Admission/Observation Consideration of admission/observation: Escalation of care including admission/observation considered Patient would have been admitted to the hospital and transferred to appropriate facility had their clinical presentation warranted hospital admission. Lab Data [facility] Lab Attestation statement: I reviewed the patient's lab results. as per [facility] 06/16/25 10:42 06/16/25 10:42 Labs: Lab Results 06/16/25 Range/Units 10:42 WBC 17.2 H (4.8-10.8) X10*3/uL RBC 4.86 (4.20-5.50) X10*6/uL Hgb 15.3 (12.0-16.0) g/dl Hct 43.2 (37.0-47.0) % MCV 88.9 (80.0-98.0) fL MCH 31.5 (27.0-33.0) pg MCHC 35.4 H (31.0-35.0) g/dl RDW 12.3 (11.0-16.0) % Plt Count 365 (160-400) X10*3/uL MPV 9.3 L (9.4-12.3) fL Immature Gran % (Auto) 0.6 H (0.0-0.4) % Neut % (Auto) 65.6 (45-73) % Lymph % (Auto) 28.5 (20-40) % Blaine % (Auto) 4.5 (2-11) % Eos % (Auto) 0.6 (0-4) % Baso % (Auto) 0.2 (0-2) % Lymph # (Auto) 4.9 (1.2-4.9) X10*3/uL Blaine # (Auto) 0.8 (0.1-1.2) X10*3/uL Eos # (Auto) 0.1 (0.0-0.4) X10*3/uL Baso # (Auto) 0.0 (0.0-0.2) X10*3/uL Abs Immat Gran (auto) 0.11 H (0.00-0.03) X10*3/uL Absolute Neuts (auto) 11.3 H (2.0-8.3) x10*3/uL Absolute Nucleated RBC 0.000 (0.0-0.012) X10*3/uL Nucleated RBC % (auto) 0.0 (0.0-0.2) /100WBC D-Dimer High Sensitivty < 150 NG/ML Sodium 141 (135-145) mmol/L Potassium 3.0 L (3.3-5.1) mmol/L Chloride 108 (96-108) mmol/L Carbon Dioxide 24 (22-29) mmol/L Anion Gap 12 (12-20) BUN 14 (9-16) mg/dL Creatinine 0.92 (0.5-1.4) mg/dL Estim Creat Clear Calc 75.4 Estimated GFR > 60 Random Glucose 78 (60-115) mg/dL Calcium 9.3 (8.4-10.2) mg/dL Total Bilirubin 0.4 (0.0-1.0) mg/dL AST 15 (5-31) U/L ALT 11 (0-31) U/L Alkaline Phosphatase 72 (39-117) U/L Total Protein 6.7 (6.5-8.0) g/dL Albumin 4.1 (3.5-5.0) g/dL COVID-19 (FRANCISCO) Negative (Negative) COVID-19 Clin Com See Note Influenza Type A (RASHIDA) Negative (Negative) Influenza Type B (RASHIDA) Negative (Negative) Influenza A & B Note See Note Independent Interpretation I performed an independent interpretation of an: Plain X-Ray and CT Scan Interpretation: No evidence of pneumonia on chest x-ray or CT chest Radiology Impression Discussion of test interpretation with radiology: I have reviewed the radiologist's reading. Radiologist Impression: XR/XR chest 2V IMPRESSION: No active pulmonary disease. CT/CT chest w IV con IMPRESSION: Unremarkable examination. External Record Review External record reviewed: Inpatient record, Office record and Outpatient record Prescription Management I considered prescription management with: Antibiotic and Other Discharge Plan Discharge Clinical Impression: Bronchitis Patient Disposition: Home, Self-Care Instructions: Acute Bronchitis (ED) Additional Instructions: You were evaluated in the emergency department today for cough and shortness of breath. You are being treated for bronchitis with an antibiotic, please complete the full course as prescribed. You are also being prescribed a short course of steroids to decrease inflammation. You are being prescribed an inhaler which you can use every 4-6 hours as needed for shortness of breath. Please follow-up with your primary care provider this week. Return to the emergency department if you develop worsening shortness of breath, difficulty breathing, chest pain, fever not improved with Tylenol or ibuprofen, or any other concerning symptoms. Prescriptions: New azithromycin 250 mg tablet See Rx Instructions .ROUTE .COMPLEX Qty: 6 0RF Rx Instructions: For 250 mg dose pack: take 500 mg today (day 1), then 250 mg for 4 days (days 2-5) prednisone 10 mg tablet See Rx Instructions .ROUTE .COMPLEX Qty: 15 0RF Rx Instructions: 50mg (5 tabs) x1 day, then 40 mg (4 tabs) x1 day, then 30 mg (3 tabs) x1 day, then 20 mg (2 tabs) times 1 day, then 10 mg (1 tab) x1 day albuterol sulfate [Ventolin HFA] 90 mcg/actuation HFA aerosol inhaler 2 puff inhalation Q4-6H PRN (Reason: shortness of breath or wheezing) Qty: 6.7 0RF No Action levofloxacin 500 mg tablet 500 mg PO DAILY Qty: 9 0RF ketorolac 10 mg tablet 10 mg PO TID PRN (Reason: pain) Qty: 10 0RF Rx Instructions: Do not mix this medication with NSAIDs, only Tylenol if needed sodium,potassium,mag sulfates [Suprep Bowel Prep Kit] 17.5-3.13-1.6 gram recon soln See Rx Instructions PO .COMPLEX Qty: 354 0RF Rx Instructions: DILUTE; drink full amount early evening before AND next morning at least 2 hr before procedure; follow w 960 mL water PO Print Language: Sudanese
[2025-06-16 10:32] VITALS: BP 115/75; PULSE 94; BMI 31.4
[2025-06-16 10:35] VITALS: BP 116/75; PULSE 77; RESP 26; O2SAT 100
[2025-06-16 10:48] LABS: MANUAL DIFF FLAG NO
[2025-06-16 10:50] LABS: Hematocrit 43.2 % (37.0-47.0); Hemoglobin 15.3 g/dl (12.0-16.0); Imm Gran Abs Auto 0.11 X10*3/uL (0.00-0.03); Imm Gran Pct Auto 0.6 % (0.0-0.4); Lymphocytes Absolute Auto 4.9 X10*3/uL (1.2-4.9); Mean Corpuscular HGB Conc 35.4 g/dl (31.0-35.0); Mean Corpuscular Hemoglobin 31.5 pg (27.0-33.0); Mean Corpuscular Volume 88.9 fL (80.0-98.0); NRBC Abs Auto 0.000 X10*3/uL (0.0-0.012); NRBC Pct Auto 0.0 /100WBC (0.0-0.2); Platelet Count 365 X10*3/uL (160-400); Red Blood Count 4.86 X10*6/uL (4.20-5.50); White Blood Count 17.2 X10*3/uL (4.8-10.8)
[2025-06-16 11:06] LABS: Alanine Aminotransferase 11 U/L (0-31); Albumin Level 4.1 g/dL (3.5-5.0); Alkaline Phosphatase 72 U/L (39-117); Anion Gap 12 (12-20); Aspartate Amino Transferase 15 U/L (5-31); Blood Urea Nitrogen 14 mg/dL (9-16); Calcium 9.3 mg/dL (8.4-10.2); Carbon Dioxide 24 mmol/L (22-29); Chloride 108 mmol/L (96-108); Creatinine Clr Calc Pharmacy 75.4; Estimated Glomerular Filt Rate > 60; Potassium 3.0 mmol/L (3.3-5.1); Sodium 141 mmol/L (135-145); Total Protein 6.7 g/dL (6.5-8.0)
[2025-06-16 11:10] LABS: COVID-19 Test Negative (Negative); IDNOW Serial# 55D5AD1C; IDNOW Serial# 58CA691E; Influenza B2 Negative (Negative)
[2025-06-16] MEDS: Albuterol Sulfate 2.5 MG, Albuterol Sulfate (0.083%) 2.5 MG 5 MG INHALE (11:11)
[2025-06-16 11:12] VITALS: PULSE 67; RESP 18; O2SAT 98
[2025-06-16 11:17] LABS: D Dimer High Sensitivity < 150 NG/ML
--- NOTE | 2025-06-16 11:40 | PC.NURSE ---
Medical History Colon cancer screening History of pulmonary embolus (PE) (~03/2010) Nicotine dependence, cigarettes, uncomplicated Thrombosed external hemorrhoid
[2025-06-16 12:44] VITALS: BP 114/53; PULSE 105; RESP 16; TEMP 36.7; O2SAT 99
[2025-06-16] MEDS: Potassium Chloride Packet 20 MEQ PACKET 40 MEQ PO (13:01)
[2025-06-16 14:00] VITALS: BP 100/56; PULSE 91; RESP 16; O2SAT 97
[2025-06-16] MEDS: iohexoL 350 MG/ML 100 ML INFUS..BTL IV (14:13)
[2025-06-16 15:34] VITALS: BP 100/56; PULSE 91; RESP 16; TEMP 36.7; O2SAT 97
== END 2025-06-16 15:35 | disposition home or self-care (01) ==
PROVIDERS: Registered Nurse Emergency; Emergency Provider Emergency Medicine; PCP Registered Nurse
DX: J40 Bronchitis, not specified as acute or chronic (principal); R06.02 Shortness of breath; M54.50 Low back pain, unspecified; R42 Dizziness and giddiness; R05.9 Cough, unspecified; Z11.52 Encounter for screening for COVID-19; Z79.899 Other long term (current) drug therapy
CPT/HCPCS: 36415; 71260; 80053; 85025; 85379; 87502; 87635; 94640; 99285; Q9967

== ENCOUNTER → 2025-06-28 07:48 | Outpatient (REF) | payer MEDICAID, SELFPAY ==
--- OUTSIDE RECORDS SUMMARY | 2025-06-28 07:51 | XMS_ITS | Encounter Summary ---
Author Organization [employer] Address [address] [place] [address] Care Team Providers Care Home Appraiser Name Role Phone Breana Raphael CLINICAL LAB SCIENTIST Primary Care Provider [phone] Encounter Details Date Type Department Care Team ([facility] st Contact Info) Description 06/16/2025 Results Follow-Up [facility] [address] [place] [address] Vianey Perez, ANP [address] [place] [address] XR Chest 2 Views Social History Tobacco Use Types Packs/Day Years [...] AM EDT documented as of this encounter Miscellaneous Notes * Result Encounter Note - ADELAIDA Bailey - 06/16/2025 3:44 PM EDT Pt at ED, XR normal documented in this encounter Plan of Treatment Upcoming Encounters Date Type Department Care Team (Late st Contact Info) Description 07/03/2025 3:30 PM EDT Office Visit [facility] [address] [place] [address] Breana Raphael FNP [address] [place] [address] documented as of this encounter Visit Diagnoses Not on filedocumented in this encounter Additional Health Concerns Assessment Noted Time PHQ-9 Depression Total Score: 11 024 2:57 PM EDT documented as of this encounter Care Teams Home Appraiser Relationship Specialty Start Date End Date Breana Raphael FNP [address] [place] [address] PCP - General Family Medicine 03/27/22 documented as of this encounter
--- OUTSIDE RECORDS SUMMARY | 2025-06-28 07:51 | XMS_ITS | Clinical Summary ---
Author Organization [employer] Address [address] [facility] [address] [place] [address] Care Team Providers Care Differential Tester Name Role Phone Breana Raphael FIDEL Primary Care Provider [phone] Allergies No known active allergies Medications nicotine [...] or fever. 40 tablet 09/06/20 24 Active albuterol 108 (90 Base) MCG/ACT inhalerIndicati ons:Cough in adult patient,SOB (shortness of breath) Inhale 2 puffs every 4 (four) hours if needed for wheezing or shortness of breath. 18 g 1 06/07/20 25 026 Active levoFLOXacin (Levaquin) 500 MG tablet Take 1 tablet by mouth Once per day. 06/04/20 25 Active amoxicillin (Amoxil) 500 MG capsule Take [...] tablet 09/06/20 24 025 Discontinued(Th erapy completed) predniSONE (Deltasone) 10 MG tabletIndicatio ns:Cough in adult patient Take 5 tablets (50 mg) by mouth Once per day for 3 days, THEN 4 tablets (40 mg) Once per day for 3 days, THEN 2 tablets (20 mg) Once per day for 4 days, THEN 1 tablet (10 mg) Once per day for 4 days. 39 tablet 06/07/20 25 025 Active Problems Problem Noted Date Diagnosed Date Dyspnea 06/16/2025 Assessment & Plan (06/16/2025 9:48 AM EDT): Case presented to [facility] emergency room ambulance called Hypokalemia 06/16/2025 Assessment & Plan (06/16/2025 9:48 AM EDT): Case presented to [facility] emergency room ambulance called History of pulmonary embolism 06/16/2025 Persistent dry cough 07/19/2024 Assessment & Plan [...] 06/24/24 Colonoscopy: Referral to Dr. Zambrano at [facility] in May 2024 Pap: [...] for her in the past -Referred to [facility] LDCT for lung CA screening 06/24/24 Assessment & Plan (02/05/2023 11:09 AM EDT): Typically 6-12 cigg/day (depends on stress level) Discussed available smoking cessation resources through [facility] Encounters Date Type Department Care Team Description 06/21/2025 3:30 PM EDT Office Visit [facility] [address] [place] [phone] Jayda Fuentes CNP Abnormal ECG (Primary Dx); Bronchitis 06/21/2025 Travel 06/21/2025 Telephone [facility] [address] [place], [place] [phone] Breana Raphael FNP chart prep 06/16/2025 10:00 AM EDT Office Visit [facility] [address] [place] [address] Leanne Morales MD Dyspnea, unspecified type (Primary Dx); Hypokalemia; History of pulmonary embolism 06/16/2025 Results Follow-Up [facility] [address] [place] [address] Bre Cho ANP XR Chest 2 Views 06/16/2025 Orders Only [facility] External Provider, [facility] 06/16/2025 Results Follow-Up [facility] [address] [place] [address] Ev Fang, JARON CBC auto differential, COVID-19 ID NOW (RAMSAY), Influenza A B2 ID NOW (Ramsay), Additional followed-up results: 5 06/16/2025 Telephone [facility] [address] [place] [phone] Leanne Morales MD In person triage 06/16/2025 Travel 06/15/2025 Orders Only GENERIC EXTERNAL DATA DEPARTMENT Provider, Generic External Data 06/09/2025 Telephone [facility] [address] [place] [phone] Bre Cho ANP Tracheostomy Tube Check 06/08/2025 Telephone [facility] [address] [place], [place] [phone] Breana Raphael FNP Appointment Request 06/07/2025 5:00 PM EDT Office Visit [facility] [address] [place] [phone] Bre Cho ANP Cough in adult patient (Primary Dx); SOB (shortness of breath) 06/07/2025 Telephone [facility] [address] [place] [phone] Bre Cho ANP Triage 06/03/2025 Orders Only [...] Answer Date Recorded Patient Health Questionnaire-9 Score 21 06/21/2025 Patient Health Questionnaire-9 Score 21 06/21/2025 Last PHQ-9: Questionnaire Data Not on file 0 06/21/2025 Housing Stability Answer Date Recorded What is [...] Date Recorded Patient Health Questionnaire-2 Score 6 06/21/2025 Internet Access Answer Date Recorded Internet Access [...] Sign Reading Time Taken Comments Blood Pressure 126/82 06/21/2025 3:30 PM EDT Pulse 76 06/21/2025 3:30 PM EDT Temperature 36.3 C (97.3 F) 06/21/2025 3:30 PM EDT Respiratory Rate 16 06/21/2025 3:30 PM EDT Oxygen Saturation 98% 06/21/2025 3:30 PM EDT Inhaled Oxygen Concentration - - Weight 79.4 kg (175 lb) 06/21/2025 3:30 PM EDT Height 160 cm (5' 3 ) 06/21/2025 3:30 PM EDT Body Mass Index 31 06/21/2025 3:30 PM EDT Plan of Treatment Upcoming Encounters Date Type Department Care Team (Late st Contact Info) Description 07/03/2025 3:30 PM EDT Office Visit [facility] [address] [place] [address] Breana Raphael, CONSTRUCTION COST ESTIMATOR [address] [place] [address] Health Maintenance Due Date Last Done Comments CT Colonography 1975 Colonoscopy 1974 Colorectal Cancer Screening 1974 Dental Oral Exam 1974 Dental X-Ray: Full Mouth 1974 FIT DNA/Cologuard 1974 FIT 1974 FOBT 1974 HIV Screening 1974 Lipid Panel 1974 Sigmoidoscopy 1974 Alcohol/Substance Use Screening 1986 Family Planning (PISQ) 1989 Hepatitis C Screening [...] (#1) 2025 Mammogram 06/14/2025 06/14/2024, 03/26/2023, 03/21/2023 SDOH Screening 06/24/2025 06/24/2024 Depression Monitoring 12/19/2025 06/21/2025 , 06/21/2025 Tobacco Screening 06/07/2026 06/07/2025 Disability Screening 06/16/2026 [...] Procedure Name Priority Date/Time Associated Diagnosis Comments CT CHEST W CONTRAST Routine 06/16/2025 2 :02 PM EDT XR CHEST 2 VIEWS Routine 06/16/2025 9:00 [...] Recently Relevant to Health Maintenance Results * CT Chest w/ Contrast (06/16/2025 2:02 PM EDT) Anatomical Region Laterality Modality Body, Chest Computed Tomogra phy 06/16/2025 2:02 PM EDT Narrative 06/16/2025 2:29 PM EDT [place] [address] [address] Scan Report Signed Patient: Leanne Vega MR#: [id number] 46 : 1975 Acct:[id number] Age/Sex: 50 / F ADM Date: 06/16/25 Loc: HO.ED Attending Dr: Ordering Physician: Farzaneh Patino NP Date of Service: 06/16/25 Procedure(s): CT chest w IV con Accession Number(s): [id number] cc: Breana Raphael CONSTRUCTION COST ESTIMATOR; Farzaneh Patino NP Report Number: [id number]: Total DLP = 278.00 mGy-cm Reason for Exam: cough x mos, dyspnea, leukocytosis EXAMINATION: CT CHEST WITH CONTRAST CLINICAL INFORMATION: Cough, dyspnea, leukocytosis COMPARISON: Same-day chest x-ray and CT November 29, 2024 TECHNIQUE: Multidetector volumetric CT imaging of the chest was obtained after the administration of 65 mL of Omnipaque 350 intravenous contrast without immediate adverse reactions. Axial MIP volume rendering provided. Sagittal and coronal reformatted images were obtained. This CT examination was performed using dose optimization techniques as appropriate, variously including the following: *Automated exposure control *Adjustment of mA and/or kV according to patient size (this includes techniques or standardized protocols for targeted exams where dose is matched to indication/reason for exam; i.e. extremities or head) *Use of iterative reconstruction technique FINDINGS: LUNGS: Stable linear scarring and or atelectasis present in the posterior basilar right lower lobe and posterolateral left lower lobe. MEDIASTINUM: The mediastinum is unremarkable. PLEURA: There is no pleural effusion. No pleural mass or thickening. AXILLA: No lymphadenopathy. UPPER ABDOMEN: There is a 12 mm hypodensity in the left lateral margin of the liver measuring 3 Hounsfield units cyst with a simple hepatic cyst. It appears unchanged. There is similar smaller lesion in the left medial hepatic segment. The upper abdomen is otherwise unremarkable. OSSEOUS STRUCTURES: The posterior left seventh and eighth rib fractures are again noted. CT/CT chest w IV con IMPRESSION: Unremarkable examination. Fleischner guidelines were followed. Electronically signed by: Vikas Hoang MD 06/16/2025 02:26 PM EDT RP Dictated By: Vikas Hoang MD Signed By: <Electronically signed by Vikas Hoang MD in OV> 06/16/25 1426 DD/ 1402 TD/TT: 06/16/25 1412 Sales Inspector: Procedure Note Donotuseinterpreter, Image - 06/16/[address] [address] [address] Scan Report Signed Patient: Leanne Vega CMR#: [id number] 46 : 1975Acct:[id number] Age/Sex: 50 / FADM Date: 06/16/25 Loc: HO.ED Attending Dr: Ordering Physician: Farzaneh Patino NP Date of Service: 06/16/25 Procedure(s): CT chest w IV con Accession Number(s): [id number] cc: Breana Raphael CONSTRUCTION COST ESTIMATOR; Farzaneh Patino [employer] Report Number: [id number]: Total DLP = 278.00 mGy-cm Reason for Exam: cough x mos, dyspnea, leukocytosis EXAMINATION: CT CHEST WITH CONTRAST CLINICAL INFORMATION: Cough, dyspnea, leukocytosis COMPARISON: Same-day chest x-ray and CT November 29, 2024 TECHNIQUE: Multidetector volumetric CT imaging of the chest was obtained after the administration of 65 mL of Omnipaque 350 intravenous contrast without immediate adverse reactions. Axial MIP volume rendering provided. Sagittal and coronal reformatted images were obtained. This CT examination was performed using dose optimization techniques as appropriate, variously including the following: *Automated exposure control *Adjustment of mA and/or kV according to patient size (this includes techniques or standardized protocols for targeted exams where dose is matched to indication/reason for exam; i.e. extremities or head) *Use of iterative reconstruction technique FINDINGS: LUNGS: Stable linear scarring and or atelectasis present in the posterior basilar right lower lobe and posterolateral left lower lobe. MEDIASTINUM: The mediastinum is unremarkable. PLEURA: There is no pleural effusion. No pleural mass or thickening. AXILLA: No lymphadenopathy. UPPER ABDOMEN: There is a 12 mm hypodensity in the left lateral margin of the liver measuring 3 Hounsfield units cyst with a simple hepatic cyst. It appears unchanged. There is similar smaller lesion in the left medial hepatic segment. The upper abdomen is otherwise unremarkable. OSSEOUS STRUCTURES: The posterior left seventh and eighth rib fractures are again noted. CT/CT chest w IV con IMPRESSION: Unremarkable examination. Fleischner guidelines were followed. Electronically signed by: Vikas Hoang MD 06/16/2025 02:26 PM EDT Dictated By: Vikas Hoang MD Signed By: <Electronically signed by Vikas Hoang MD in OV> 06/16/25 1426 DD/ 1402 TD/TT: 06/16/25 1412 Sales Inspector: [facility] External Provider IMG CT PROCEDURES Edited Result - Final * XR Chest 2 Views (06/16/2025 9:00 AM EDT) Anatomical Region Laterality Modality Chest Radiographic Lary ging 06/16/2025 9:00 AM EDT Narrative 06/16/2025 9:10 AM EDT [address] [address] XRay Report Signed Patient: Leanne Vega MR#: [id number] 46 : 1975 Acct:[id number] Age/Sex: 50 / F ADM Date: 06/16/25 Loc: ORAL Attending Dr: Bre Cho NP Ordering Physician: BRE CHO NP Date of Service: 06/16/25 Procedure(s): XR chest 2V Accession Number(s): [id number] cc: BRE CHO NP Reason for Exam: [...] MD in OV> 06/16/25906 DD/ 9 TD/TT: 06/16/25 0903 Sales Inspector: Procedure Note Donotuseinterpreter, Image - 06/16/[address] [address] XRay Report Signed Patient: Leanne Vega CMR#: [id number] 46 : 1975Acct:[id number] Age/Sex: 50 / FADM Date: 06/16/25 Loc: ORAL Attending Dr: Bre Cho [employer] Ordering Physician: BER CHO NP Date of Service: 06/16/25 Procedure(s): XR chest 2V Accession Number(s): [id number] cc: BRE CHO NP Reason for Exam: [...] in OV> 06/16/25906 DD/ 9 TD/TT: 06/16/25902 Sales Inspector: Bre Cho ANP IMG XR PROCEDURES Edited Result - Final * Influenza A B2 ID NOW (Ramsay) (06/15/2025 2:22 PM EDT) IDNOW SERIAL# [id number] [facility] Influenza A Negative Negative [facility] [...] Result [facility] [address] [place] [address] [phone] * Slide Review (06/15/2025 2:22 PM EDT) Slide Review VERIFIED [facility] 06/15/2025 2:22 PM EDT 06/15/2025 2:27 PM EDT us Generic External Data Provider LAB BLOOD ORDERAB LES Final Result [facility] [address] [place] [phone] * COVID-19 ID NOW (GVISP 1) (06/15/2025 2:22 PM EDT) IDNOW SERIAL# [id number] [facility] COVID-19 TEST Negative Negative [facility] COVID-19 NOTE See Note [facility] Comment: Results are for the identification of SARS-CoV2 RNA. TheSARS-CoV2 RNA is generally detectable in respiratory samplesduring the acute phase of infection. Positive results areindicative of the presence of SARS-CoV-2 RNA; clinicalcorrelation with patient history and other diagnosticinformation is necessary to determine patient infectionstatus. Positive results do not rule out bacterial infectionor co- infection with other viruses.Testing facilities within the [facility] and [facility] are required to report all positive [...] use by authorized laboratories.Testing performed on the [employer] ID NOW utilizing NAAT. 06/15/2025 2:22 PM EDT 06/15/2025 2:27 PM EDT Generic External Data Provider LAB MOLECULAR KANE GNOSTICS ORDERABLES Final Result Performing Organization Address [facility] de Phone Number [facility] [address] [place] [phone] * High Sensitivity Troponin I (06/15/2025 2:22 PM EDT) [facility] TROPONIN I HIGH SENSITIVITY <2.7 <3.5 - 17.0 ng/L [facility] Comment:The Ramsay high sens itivity Troponin-I results should beused in conjunction with other diagnostic information suchas ECG, clinical observations and information, and patientsymptoms to aid in the diagnosis of MD. 06/15/2025 2:22 PM EDT 06/15/2025 2:27 PM EDT Generic External Data Provider LAB BLOOD ORDERAB LES Final Result Performing Organization Address [facility] de Phone Number [facility] [address] [place] [phone] * (ABNORMAL) CBC auto differential (06/15/2025 2:22 PM EDT) Only the most recent of2 resultswithin the time period is included. Pathologist [facility] White Blood Count 16.1(H) 4.8 - 10.8 [...] Final [facility] [address] [place] [address] [phone] * Magnesium (06/15/2025 2:22 PM EDT) Magnesium 2.2 1.6 - 2.6 mg/dL [facility] 06/15/2025 2:22 PM EDT 06/15/2025 2:27 PM EDT Generic External Data Provider LAB BLOOD ORDERAB LES Final Result Performing Organization Address [facility] de Phone Number [facility] [address] [place] [phone] * Hepatic Function Panel (06/15/2025 2:22 PM EDT) [facility] Bilirubin, Total 0.4 0.0 - 1.0 mg/dL [...] ORDERAB LES Final Result Performing Organization Address [facility] de Phone Number [facility] [address] [place] [phone] * (ABNORMAL) Basic Metabolic Panel (06/15/2025 2:22 PM EDT) Only the most recent of2 resultswithin the time period is included. Pathologist [facility] Sodium 142 135 - 145 mmol/L [facility] [...] Kidney Disea se: Estimated GFR < 60 mL/min/1.57j8Yexvul Kidney Disease: Estimated GFR < 15 mL/min/1.73m2 Glucose 142(H) 60 - 115 mg/dL [facility] Calcium 9.3 8.4 - 10.2 mg/dL [facility] 06/15/2025 2:22 PM EDT 06/15/2025 2:27 PM EDT us Generic External Data Provider LAB BLOOD ORDERAB LES Final Result [facility] [address] [place] [phone] * POCT Rapid Covid-19 BinaxNOW (06/07/2025 5:00 PM EDT) Rapid COVID Ag Negative QC Media Lot # [id number] Lot# Expiration Date [id number] Swab 06/07/2025 5:00 PM EDT us Bre Cho [facility] POINT OF CARE TEST ENTER/EDIT OR DERABLES Final Result * CT Abdomen Pelvis w/o Contrast (06/04/2025 4:20 AM EDT) Anatomical Region Laterality Modality Body, Pelvis, Abdomen Computed T omography 06/04/2025 4:20 AM EDT Narrative 06/04/2025 4:22 AM EDT [address] [address] [address] Scan Report Signed Patient: Leanne Vega MR#: [id number] 46 : 1975 Acct:[id number] Age/Sex: 50 / F ADM Date: 06/04/25 Loc: HO.ED Attending Dr: Ordering Physician: Karlo Bedolla MD Date of Service: 06/04/25 Procedure(s): CT abdomen pelvis wo IV con Accession Number(s): [id number] cc: Karlo Bedolla MD; Breana Raphael [facility] Report Number: [id number]: Total DLP = 602.00 mGy-cm Reason for [...] signed by Oswaldo Elliott MD in OV> 09/04/21 421 DD/ 9 TD/TT: 06/04/25419 Sales Inspector: Procedure Note Donotuseinterpreter, Image - 06/04/[address] [address] [address] Scan Report Signed Patient: Leanne Vega CMR#: [id number] 46 : 1975Acct:[id number] Age/Sex: 50 / FADM Date: 06/04/25 Loc: HO.ED Attending Dr: Ordering Physician: Karlo Bedolla MD Date of Service: 06/04/25 Procedure(s): CT abdomen pelvis wo IV con Accession Number(s): [id number] cc: Karlo Bedolla MD; Breana Raphael [facility] Report Number: [id number]: Total DLP = 602.00 mGy-cm Reason for [...] in OV> 06/04/25420 DD/ 9 TD/TT: 06/04/25419 Sales Inspector: [facility] External Provider IMG CT PROCEDURES Final [...] Negative [facility] Specific [place] - Urine 1.020 1.005 - 1.025 [facility] Urine Protein See Note Neg-Trace mg/dL [facility] Comment:Urine pigment obscur ed dipstick results. Urine Ketones See Note Negative mg/dL [facility] Comment:Urine pigment obscur ed dipstick results. Nitrite Urine See Note Negative [facility] Comment:Urine pigment obscur ed dipstick results. Leukocyte Esterase Urine Moderate (2+)(A) Negative [facility] RBC Urine >20(A) 0 - 2 /HPF [facility] Urine WBC >50(A) 0 - 5 /HPF [facility] Urine Squamous Epithelial Cell 0-2 0 - 2 /HPF [facility] Urine Bacteria Trace None Seen [facility] Hyaline Casts, Urine 0-2 0 - 2 /LPF [facility] 06/03/2025 10:0 2 PM EDT 06/03/2025 10:06 PM EDT Narrative [facility] - 06/03/2025 10:29 PM EDT 2201Urine, Clean Catch Generic External Data Provider LAB URINE ORDERAB LES Final Result [facility] [address] [place] [phone] * Culture, Urine, Routine (06/03/2025 12:00 [...] GENERAL ORDERABLES Final Result Performing Organization Address City/State/[facility] Co de Phone Number [facility] [address] [place] [phone] * BI Mammogram Screening Tomosynthesis Bilateral (06/14/2024 8:45 AM EDT) Anatomical Region Laterality Modality Breast Bilateral Mammography 06/14/2024 8:45 AM EDT Narrative 06/27/2024 3:57 PM EDT [address] [place] [address] Mammography Report Signed Patient: Leanne Vega MR#: [id number] 46 : 1975 Acct:[id number] Age/Sex: 49 / F ADM Date: 06/14/24 Loc: HO.MAMMO Attending Dr: rBeana Raphael CONSTRUCTION COST ESTIMATOR Ordering Physician: Breana Raphael Results: 2Benig n Findings Date of Service: 06/14/24 Follow Up: 1 Year From Orig ina Mammogram Procedure(s): MM tomosynthesis screening BI Accession Number(s): [id number] cc: Breana Raphael EXAMINATION: MM SCREENING DIGITAL [...] 06/27/24 1554 DD/ 0845 TD/TT: 06/14/24 0900 Sales Inspector: Procedure Note Donotuseinterpreter, Image - 06/27/2024 [facility] [address] [place] [address] Mammography Report Signed Patient: Leanne Vega CMR#: [id number] 46 : 1975Acct:[id number] Age/Sex: 49 / FADM Date: 06/14/24 Loc: NAYANA Attending Dr: Breana Raphael CONSTRUCTION COST ESTIMATOR Ordering Physician: Breana Raphael FNPResults: 2Benig n Findings Date of Service: 06/14/24Follow Up: 1 Year From Orig inal Mammogram Procedure(s): MM tomosynthesis screening BI Accession Number(s): [id number] cc: Breana Raphael EXAMINATION: MM SCREENING DIGITAL [...] 06/27/24 1554 DD/ 0845 TD/TT: 06/14/24 0900 Sales Inspector: Breana Raphael CONSTRUCTION COST ESTIMATOR IMG BI PROCEDURES Final Result from Last 3 Months or Most Recently Relevant to Health Maintenance Insurance [facility] C3 DENTAL-[facility] MEDICAID STAND ADULT Care Teams Differential Tester Relationship Specialty Start Date End Date Breana Raphael FNP [address] [place] [address] PCP - General Family Medicine 03/27/22
--- NOTE | 2025-06-28 08:18 | CA_ITS ---
Transthoracic Echocardiogram Patient (Last, First, Middle): Leanne Vega C Gender: F Date of : 1975 Age: 50 Procedure Date: 06/28/2025 Procedure Type: Transthoracic Echocardiogram Location: OP Height: 162. cm Weight: 78.47 kg BSA: 1.83 m2 Heart Rate: 72 bpm BP: 95 / 60 mmHg Customer Operations Intern: ALESSIO Referring MD: Jayda Fuentes NP Symptoms: ABN EKG LBBB R94.31 Study Quality: Fair ECG Rhythm: Sinus Conclusions: - The left ventricular systolic function is normal. The calculated ejection fraction is 69% by biplane method. - No obvious valvular pathology seen on this study. Findings Left Ventricle Normal left ventricular cavity size. There is normal left ventricular wall thickness. The left ventricular systolic function is normal. The calculated ejection fraction is 69% by biplane method. There is no evidence of regional wall motion abnormalities. Diastolic function is normal for age. Right Ventricle Normal right ventricular cavity size and systolic function. Atria Both atria are normal in size. Aortic Valve There is a normal trileaflet aortic valve. There is no aortic valve stenosis. There is trace (trivial) aortic valve regurgitation. Mitral Valve The mitral valve appears normal. There is no mitral valve regurgitation. There is no mitral valve stenosis. Pulmonic Valve The pulmonic valve is likely normal. There is trace pulmonic valve regurgitation. Tricuspid Valve There is no tricuspid valve regurgitation. Tricuspid regurgitation envelope is inadequate for calculation of right ventricular systolic pressure. Great Vessels The asc aorta is normal in size. Venous The inferior vena cava is normal in size and collapses greater than 50% with inspiration. Pericardium/Pleural There is no evidence of pericardial effusion. Prior Study Comparison No prior study available for comparison. Recommendations, Care & Conclusions No obvious valvular pathology seen on this study. Measurements 2D Linear Measurements IVSd: 0.69 0.6-0.9/0.6-1.0 cm LVIDd: 4.46 3.9-5.3/4.2-5.9 cm LVIDd Index: 2.44 2.4-3.2/2.2-3.1 cm/m2 LVIDs: 2.65 2.0-3.6 cm LVPWd: 0.69 0.7-1.1 cm LA Diam: 3.50 2.7-3.8/3.0-4.0 cm LAIDs Index: 1.91 1.5-2.3 cm/m2 LV Mass: 114.45 67-162/88-224 g LV Mass Index: 62.54 43-95/49-115 g/m2 LVOT Diam: 1.80 3.0+(-)1.3 cm 2D Systolic Function EF 4C: 67.50 >55% EF 2C: 72.50 >55% EF BiP: 69.20 >55% Mitral Valve MV Pk E: 0.84 MV PK A: 0.99 MV Decel Time: 218.00 E/A: 0.80 E'Lateral: 11.10 E'Medial: 8.81 E/E' Med: 9.50 E/E' Lat: 7.60 PHT: 64.00 MVA PHT: 3.44 Decel [place]: 3.86 Aortic Valve AoV Pk Andre: 1.52 AoV Mn Andre: 1.07 AoV VTI: 0.30 AoV Pk Grad: 9.00 Aov Mn Grad: 5.00 CHRISTY Cont.VTI: 2.07 LVOT LVOT Pk Andre: 1.31 LVOT Mn Andre: 0.90 LVOT VTI: 0.24 LVOT Pk Grad: 7.00 LVOT Mn Grad: 4.00 LVOT Diam: 1.80 LVOT Area: 2.54 Diastolic Function MV Pk E: 0.84 MV Pk A: 0.99 E/A: 0.80 E'Medial: 8.81 E/E' Med: 9.50 E' Laterial: 11.10 E/E' Lat: 7.60 Right Ventricle TAPSE (mm): 22.60 TVS' Andre: 11.40 Tricuspid Valve RA Press: 3.00 Great Vessels Aorta Sinus of Valsalva: 2.70 2.0-3.5 cm Ao Asc: 2.90 2.1-3.4 cm Ao Arch: 2.40 Pulmonary Veins Pulm Vein S/D 1.70 Pulmonary Valve PV Pk Andre: 0.90 Peak PV Grad: 3.00 Updated in Other Vendor System with Status of Final Sterling Young MD electronically signed on 06/29/2025 3:26:31 PM with status of Final
== END ==
LOC: HO.CARD 07:48
PROVIDERS: PCP Registered Nurse
DX: R94.31 Abnormal electrocardiogram [ECG] [EKG] (principal)
CPT/HCPCS: 93306

== ENCOUNTER → 2025-06-28 08:18 | Outpatient (BNV) | payer MEDICAID, SELFPAY | PROVIDERS: PCP Registered Nurse; Visit Provider Internal Medicine | DX: R94.31 Abnormal electrocardiogram [ECG] [EKG] (principal) | CPT/HCPCS: 93306 ==

== ENCOUNTER 2025-07-22 07:44 | Outpatient (REF) | payer MEDICAID, SELFPAY ==
--- NOTE | ~2025-07-22 | MM_ITS ---
EXAMINATION: MM SCREENING DIGITAL BREAST TOMOSYNTHESIS, BILATERAL CLINICAL INFORMATION: Screening. Asymptomatic. COMPARISON: Mammography: Comparison is made with available priors TECHNIQUE: Digital breast mammography with tomosynthesis is performed in both the craniocaudal and mediolateral oblique views along with computer-aided detection (CAD). FINDINGS: There are scattered areas of fibroglandular density. Bilateral circumscribed oval masses which wax and wane consistent with benign fibrocystic changes and cysts. Some simple to minimally complicated cysts were demonstrated on prior ultrasounds. There are no significant masses, abnormal calcifications, or other abnormalities. MM/MM tomosynthesis screening BI IMPRESSION: No mammographic evidence of malignancy. ASSESSMENT: BI-RADS Category 2: Benign RECOMMENDATION: Routine annual mammography screening. 1 year F/U This examination should not preclude the clinical evaluation of a suspicious palpable abnormality. This patient's information was entered into a reminder system with a target due date for their next mammogram. Electronically signed by: Jasmin Koo DO 07/25/2025 11:42 AM EDT
--- OUTSIDE RECORDS SUMMARY | 2025-07-22 07:46 | XMS_ITS | Encounter Summary ---
Author Organization [employer] Address [address] [place] [address] Care Team Providers Care Steel Sampler Name Role Phone Breana Raphael CLINICAL LABORATORY TECHNOLOGIST Primary Care Provider [phone] Encounter Details Date Type Department Care Team ([facility] st Contact Info) Description 06/16/2025 Results Follow-Up [facility] [address] [place] [address] Vianey Perez, ANP [address] [place] [address] XR Chest 2 Views Social History Tobacco [...] Care Team (Late st Contact Info) Description 09/25/2025 4:00 PM EST Office Visit [facility] [address] [place] [address] Breana Raphael FNP [address] [place] [address] documented as of this encounter Visit Diagnoses Not on filedocumented in this encounter Additional Health Concerns Assessment Noted Time PHQ-9 Depression Total Score: 11 024 2:57 PM EDT documented as of this encounter Care Teams Steel Sampler Relationship Specialty Start Date End Date Breana Raphael FNP [address] [place] [address] PCP - General Family Medicine 03/27/22 documented as of this encounter
--- OUTSIDE RECORDS SUMMARY | 2025-07-22 07:46 | XMS_ITS | Clinical Summary ---
Author Organization [facility] [employer] Address [address] [place] [address] Care Team Providers Care Work Station Support Specialist Name Role Phone Breana Raphael FIDEL Primary Care Provider [phone] Allergies No known active allergies Medications nicotine (Nicoderm CQ) 14 MG/24HR patchIndications: Cigarette nicotine dependence without complication Place 1 patch on the skin 1 (one) time each day at the same time. 42 patch 4 Active acetaminophen (Tylenol) 500 MG tablet Take 2 tablets (1,000 mg) by mouth every 6 (six) hours if needed for moderate pain or fever. 40 tablet 4 Active albuterol 108 (90 Base) MCG/ACT inhalerIndication s:Cough in adult patient,SOB (shortness of breath) Inhale 2 puffs every 4 (four) hours if needed for wheezing or shortness of breath. 18 g 1 5 06/07/20 26 Active levoFLOXacin (Levaquin) 500 MG tablet Take 1 tablet by mouth Once per day. 5 Active budesonide-formot rafa (Symbicort) 80-4.5 MCG/ACT inhaler Inhale 2 puffs in the morning and at bedtime. Rinse mouth with water after use to reduce aftertaste and incidence of candidiasis. Do not swallow. 10.2 g 11 5 07/03/20 26 Active Active Problems Problem Noted Date Diagnosed Date Dyspnea 06/16/2025 Assessment & Plan (07/03/2025 5:00 PM EDT): Condition has resolved. Continue with the use of the inhaler and contact the office with any new shortness of breath Orders: Pulmonary Function Test; Future Assessment & Plan (06/16/2025 9:48 AM EDT): Case presented to [facility] [place] called Hypokalemia 06/16/2025 Assessment & Plan (06/16/2025 9:48 AM EDT): Case presented to [facility] [place] ambulance called History of pulmonary embolism 06/16/2025 Persistent dry cough 07/19/2024 Assessment & Plan (07/03/2025 5:00 PM EDT): Reports the albuterol is effective; twice a day use Will switch to a nursing home inhaler for better control Orders: Pulmonary Function Test; Future Assessment & Plan (07/19/2024 9:13 AM EDT): [...] 06/24/24 Colonoscopy: Referral to Dr. Zambrano at [facility] in May 2024 Pap: Last ~2009, denies hx of abnormal paps. Due Mammo: February 2023 (simple cyst), annual screening LDCT: ordered May 2024 Nicotine dependence 09/07/2017 Assessment & Plan (07/03/2025 5:00 PM EDT): Continues with 10 cigarettes per day with no desire for smoking cessation at this time. Reported increased use during stressful events- informed of the therapist within the clinic, who can assist her in attaining a therapist in the community- declined the services at this time. She will reach-out as needed Orders: Pulmonary Function Test; Future Assessment & Plan (07/19/2024 9:17 AM EDT): Discussed and encouraged decreasing smoking. -recommended chantix. Assessment & Plan (06/26/2024 5:46 PM EDT): -Cigg/day: 10 cigg/day (max 30 cigg/day) -Age started: 12 y/o -Total years smoking: approx 37 years -Pack year history: > 20 -Encouraged smoking cessation resources, NRT patches were not helpful for her in the past -Referred to [facility] LDCT for lung CA screening 06/24/24 Assessment & Plan (02/05/2023 11:09 AM EDT): Typically 6-12 cigg/day (depends on stress level) Discussed available smoking cessation resources through [facility] Encounters Date Type Department Care Team Description 07/03/2025 3:30 PM EDT Office Visit [facility] [address] [place] [address] Breana Raphael FNP Dyspnea, unspecified type (Primary Dx); Persistent dry cough; Cigarette nicotine dependence without complication 07/03/2025 Travel 06/21/2025 3:30 PM EDT Office Visit [facility] [address] [place] [address] Jayda Fuentes CNP Abnormal ECG (Primary Dx); Bronchitis 06/21/2025 Travel 06/21/2025 Telephone [facility] [address] [place] [address] Breana Raphael FNP chart prep 06/16/2025 10:00 AM EDT Office Visit [facility] [address] [place] [address] [phone] Leanne Morales MD Dyspnea, unspecified type (Primary Dx); Hypokalemia; History of pulmonary embolism 06/16/2025 Results Follow-Up [facility] MED[facility] [address] [place] [phone] Bre Cho ANP XR Chest 2 Views 06/16/2025 Orders Only [facility] External Provider, [facility] 06/16/2025 Results Follow-Up [facility] [address] [place] [phone] Ev Fang RN CBC auto differential, COVID-19 ID NOW (RAMSAY), Influenza A B2 ID NOW (Ramsay), Additional followed-up results: 5 06/16/2025 [facility] [address] [address] Leanne Morales MD In person triage 06/16/2025 Travel 06/15/2025 Orders Only GENERIC EXTERNAL DATA DEPARTMENT Provider, Generic External Data 06/09/2025 Telephone [facility] [address] [address] Bre Cho ANP Tracheostomy Tube Check 06/08/2025 Telephone [facility] [address] [place], [place] [phone] Breana Raphael FNP Appointment Request 06/07/2025 5:00 PM EDT Office Visit [address] [address] Bre Cho ANP Cough in adult patient (Primary Dx); SOB (shortness of breath) 06/07/2025 Telephone [facility] [address] [address] Bre Cho ANP Triage 06/03/2025 Orders Only [...] Sign Reading Time Taken Comments Blood Pressure 106/70 07/03/2025 3:36 PM EDT Pulse 70 07/03/2025 3:36 PM EDT Temperature 36.4 C (97.5 F) 07/03/2025 3:36 PM EDT Respiratory Rate 14 07/03/2025 3:36 PM EDT Oxygen Saturation 97% 07/03/2025 3:36 PM EDT Inhaled Oxygen Concentration - - Weight 77.1 kg (170 lb) 07/03/2025 3:36 PM EDT Height 160 cm (5' 3 ) 07/03/2025 3:36 PM EDT Body Mass Index 30.11 07/03/2025 3:36 PM EDT Plan of Treatment Upcoming Encounters Date Type Department Care Team (Late st Contact Info) Description 09/25/2025 4:00 PM EST Office Visit [facility] [address] [place] [address] Wilmaren Breana, CUSTOMS OFFICER [address] [place] [address] Health Maintenance Due Date Last Done Comments [...] PM EDT Narrative 06/16/2025 2:29 PM EDT [address] [address] [address] Scan Report Signed Patient: Leanne Vega MR#: [id number] 46 : 1975 Acct:[id number] Age/Sex: 50 / F ADM Date: 06/16/25 Loc: HO.ED Attending Dr: Ordering Physician: Farzaneh Patino NP Date of Service: 06/16/25 Procedure(s): CT chest w IV con Accession Number(s): [id number] cc: Breana Raphael CUSTOMS OFFICER; CareyFarzaneh FLAME CUTTING MACHINE OPERATOR Report Number: [id number]: Total DLP = 278.00 mGy-cm Reason for [...] 06/16/25 1426 DD/ 1402 TD/TT: 06/16/25 1412 Corporate Lawyer: Procedure Note Donotuseinterpreter, Image - 06/16/[address] [address] [address] Scan Report Signed Patient: Leanne Veag CMR#: [id number] 46 : 1975Acct:[id number] Age/Sex: 50 / FADM Date: 06/16/25 Loc: HO.ED Attending Dr: Ordering Physician: Farzaneh Patino NP Date of Service: 06/16/25 Procedure(s): CT chest w IV con Accession Number(s): [id number] cc: Breana Raphael CUSTOMS OFFICER; Farzaneh Patino NP Report Number: [id number]: Total DLP = 278.00 mGy-cm Reason for [...] 06/16/25 1426 DD/ 1402 TD/TT: 06/16/25 1412 Corporate Lawyer: [facility] External Provider IMG CT PROCEDURES Edited Result - Final * XR Chest 2 Views (06/16/2025 9:00 AM EDT) Anatomical Region Laterality Modality Chest Radiographic Lary ging 06/16/2025 9:00 AM EDT Narrative 06/16/2025 9:10 AM EDT [address] [address] XRay Report Signed Patient: Leanne Vega MR#: [id number] 46 : 1975 Acct:[id number] Age/Sex: 50 / F ADM Date: 06/16/25 Loc: .HHCX Attending Dr: Bre Cho NP Ordering Physician: BRE CHO NP Date of Service: 06/16/25 Procedure(s): XR chest 2V Accession Number(s): [id number] cc: BRE CHO NP Reason for Exam: [...] signed by Fernando Alonzo MD in OV> 06/16/25 0907 DD/ 0900 TD/TT: 06/16/25 0903 Corporate Lawyer: Procedure Note Donotuseinterpreter, Image - 06/16/2025 [facility] [address] [place] [address] XRay Report Signed Patient: Leanne Vega CMR#: [id number] 46 : 1975Acct:[id number] Age/Sex: 50 / FADM Date: 06/16/25 Loc: HO.HHCX Attending Dr: Bre Cho FLAME CUTTING MACHINE OPERATOR Ordering Physician: BRE CHO NP Date of Service: 06/16/25 Procedure(s): XR chest 2V Accession Number(s): [id number] cc: BRE CHO NP Reason for Exam: [...] Fernando Alonzo MD 06/16/2025 09:07 AM EDT Dictated By: Fernando Alonzo MD Signed By: <Electronically signed by Fernando Alonzo MD in OV> 06/16/25 0907 DD/ 0900 TD/TT: 06/16/25 0903 Corporate Lawyer: Bre Cho ANP IMG XR PROCEDURES Edited Result - Final * Influenza A B2 ID NOW (Ramsay) (06/15/2025 2:22 PM EDT) IDNOW SERIAL# [id number] [facility] Influenza A Negative Negative [facility] Influenza B2 Negative Negative [facility] Influenza A B2 Note See Note [facility] Comment:The Ramsay ID NOW In [...] GENERAL ORDERABLES Final Result Performing Organization Address [facility] Co de Phone Number [facility] [address] [place] [phone] * Slide Review (06/15/2025 2:22 PM EDT) Slide Review VERIFIED [facility] 06/15/2025 2:22 PM EDT 06/15/2025 2:27 PM EDT Generic External Data Provider LAB BLOOD ORDERAB LES Final Result Performing Organization Address [facility] de Phone Number [facility] [address] [place] [phone] * COVID-19 ID NOW (DealsAndYou) (06/15/2025 2:22 PM EDT) IDNOW SERIAL# [id number] [facility] COVID-19 TEST Negative Negative [facility] COVID-19 NOTE See Note [facility] Comment: Results are for the identification of SARS-CoV2 RNA. TheSARS-CoV2 RNA is generally detectable in respiratory samplesduring the acute phase of infection. Positive results areindicative of the presence of SARS-CoV-2 RNA; clinicalcorrelation with patient history and other diagnosticinformation is necessary to determine patient infectionstatus. Positive results do not rule out bacterial infectionor co- infection with other viruses.Testing facilities within the [facility] are required to report all positive results [...] use by authorized laboratories.Testing performed on the [employer] ID NOW utilizing NAAT. 06/15/2025 2:22 PM EDT 06/15/2025 2:27 PM EDT Generic External Data Provider LAB MOLECULAR KANE GNOSTICS ORDERABLES Final Result Performing Organization Address [facility] de Phone Number [facility] [address] [place] [phone] * High Sensitivity Troponin I (06/15/2025 2:22 PM EDT) [facility] TROPONIN I HIGH SENSITIVITY <2.7 <3.5 - 17.0 ng/L [facility] Comment:The Ramsay high sens itivity Troponin-I results should beused in conjunction with other diagnostic information suchas ECG, clinical observations and information, and patientsymptoms to aid in the diagnosis of [place]. 06/15/2025 2:22 PM EDT 06/15/2025 2:27 PM EDT Generic External Data Provider LAB BLOOD ORDERAB LES Final Result Performing Organization Address [facility] Co de Phone Number [facility] [address] [place] [phone] * (ABNORMAL) CBC auto differential (06/15/2025 2:22 PM EDT) Only the most recent of2 resultswithin the time period is included. [facility] White Blood Count 16.1(H) 4.8 - 10.8 X10*3/uL [facility] Red Blood Count 5.02 4.20 - 5.50 X10*6/uL [facility] Hemoglobin 15.8 12.0 - 16.0 g/dl [facility] Hematocrit 44.2 37.0 - 47.0 % [facility] Mean Corpuscular Volume 88.0 80.0 - 98.0 fL [facility] Mean Corpuscular Hemoglobin 31.5 27.0 - 33.0 pg [facility] Mean Corpuscular HGB Conc 35.7(H) 31.0 - 35.0 g/dl [facility] Red Cell Distribution Width 12.3 11.0 - 16.0 % [facility] Platelet Count 360 160 - 400 X10*3/uL [facility] Mean Platelet Volume 9.3(L) 9.4 - 12.3 fL [facility] Neutrophils Percent Auto 60.6 45 - 73 % [facility] Imm Gran Pct Auto 0.6(H) 0.0 - 0.4 % [facility] Lymphocytes Percent Auto 33.4 20 - 40 % [facility] Monocytes Percent Auto 4.4 2 - 11 % [facility] Eosinophils Percent Auto 0.8 0 - 4 % [facility] Basophils Percent Auto 0.2 0 - 2 % [facility] NRBC Pct Auto 0.0 0.0 - 0.2 /100WBC [facility] Neutrophils Absolute Auto 9.8(H) 2.0 - 8.3 x10*3/uL [facility] Imm Gran Abs Auto 0.09(H) 0.00 - 0.03 X10*3/uL [facility] Lymphocytes Absolute Auto 5.4(H) 1.2 - 4.9 X10*3/uL [facility] Monocytes Absolute Auto 0.7 0.1 - 1.2 X10*3/uL [facility] Eosinophils Absolute Auto 0.1 0.0 - 0.4 X10*3/uL [facility] Basophils Absolute Auto 0.0 0.0 - 0.2 X10*3/uL [facility] NRBC Abs Auto 0.000 0.0 - 0.012 X10*3/uL [facility] 06/15/2025 2:22 PM EDT 06/15/2025 2:27 PM EDT us Generic External Data Provider LAB BLOOD ORDERAB LES Edited Result - Final Performing Organization Address City/[facility] [address]/ZIP Co de Phone Number [facility] [address] [place] [phone] * Magnesium (06/15/2025 2:22 PM EDT) Magnesium 2.2 1.6 - 2.6 mg/dL [facility] 06/15/2025 2:22 PM EDT 06/15/2025 2:27 PM EDT us Generic External Data Provider LAB BLOOD ORDERAB LES Final Result Performing Organization Address [facility] [address]/[facility] Co de Phone Number [facility] [address] [place] [phone] * Hepatic Function Panel (06/15/2025 2:22 PM EDT) Bilirubin, Total 0.4 0.0 - 1.0 mg/dL [facility] Bilirubin, Direct 0.1 0.0 - 0.5 mg/dL [facility] Aspartate Amino Transferase 15 5 - 31 U/L [facility] Alanine Aminotransferase 16 0 - 31 U/L [facility] Total Protein 6.8 6.5 - 8.0 g/dL [facility] Albumin Level 4.1 3.5 - 5.0 g/dL [facility] Alkaline Phosphatase 75 39 - 117 U/L [facility] 06/15/2025 2:22 PM EDT 06/15/2025 2:27 PM EDT us Generic External Data Provider LAB BLOOD ORDERAB LES Final Result Performing Organization Address City/[facility] [address] [facility]/ZIP Co de Phone Number [facility] [address] [place] [phone] * (ABNORMAL) Basic Metabolic Panel (06/15/2025 2:22 PM EDT) Only the most recent of2 resultswithin the time period is included. Sodium 142 135 - 145 mmol/L [facility] Potassium 2.8(LL) 3.3 - 5.1 mmol/L [facility] Comment:Critical value for K : Results called to and read back by:VINICIUS Person calling: DOREEN Date: 06-15-25 Time: 1501 Chloride 106 96 - 108 mmol/L [facility] Carbon Dioxide 27 22 - 29 mmol/L [facility] Anion Gap 12 12 - 20 [facility] Urea Nitrogen (BUN) 16 9 - 16 mg/dL [facility] Creatinine, Serum 1.14 0.5 - 1.4 mg/dL [facility] Creatinine Clr Calc Pharmacy 57.0 [facility] Comment:Provided height and weight: 162.56 cm,72.575 kg.eGFR (calculated from the MDRD study equation) and eCrCl(calculated from the Cockcroft-Gault equation) are based ondifferent parameters and may not yield comparable results.If eCrCl result is absurd, please check patient'sheight/weight. Estimated Glomerular Filt Rate 50 [facility] Comment:Chronic Kidney Disea se: Estimated GFR < 60 mL/min/1.94p8Wswzlj Kidney Disease: Estimated GFR < 15 mL/min/1.73m2 Glucose 142(H) 60 - 115 mg/dL [facility] Calcium 9.3 8.4 - 10.2 mg/dL [facility] 06/15/2025 2:22 PM EDT 06/15/2025 2:27 PM EDT us Generic External Data Provider LAB BLOOD ORDERAB LES Final Result [facility] [address] [place] [phone] [phone] * POCT Rapid Covid-19 BinaxNOW (06/07/2025 5:00 PM EDT) Rapid COVID Ag Negative QC Media Lot # [id number] Lot# Expiration Date [id number] Swab 06/07/2025 5:00 PM EDT [facility] POINT OF CARE TEST ENTER/EDIT OR DERABLES Final Result * CT Abdomen Pelvis w/o Contrast (06/04/2025 4:20 AM EDT) Anatomical Region Laterality Modality Body, Pelvis, Abdomen Computed T omography 06/04/2025 4:20 AM EDT Narrative 06/04/2025 4:22 AM EDT [place] [address] [address] Scan Report Signed Patient: Leanne Vega MR#: [id number] 46 : 1975 Acct:[id number] Age/Sex: 50 / F ADM Date: 06/04/25 Loc: HO.ED Attending Dr: Ordering Physician: Karlo Bedolla MD Date of Service: 06/04/25 Procedure(s): CT abdomen pelvis wo IV con Accession Number(s): [id number] cc: Karlo Bedolla MD; Breana Raphael [facility] Report Number: [id number]: Total DLP = 602.00 mGy-cm Reason for [...] in OV> 06/04/25420 DD/ 9 TD/TT: 06/04/25419 Corporate Lawyer: Procedure Note Donotuseinterpreter, Image - 06/04/[address] [place] [address] [address] Scan Report Signed Patient: Leanne Vega CMR#: [id number] 46 : 1975Acct:[id number] Age/Sex: 50 / FADM Date: 06/04/25 Loc: HO.ED Attending Dr: Ordering Physician: Karlo Bedolla MD Date of Service: 06/04/25 Procedure(s): CT abdomen pelvis wo IV con Accession Number(s): [id number] cc: Karlo Bedolla MD; Breana Raphael [facility] Report Number: [id number]: Total DLP = 602.00 mGy-cm Reason for [...] in OV> 06/04/25420 DD/ 9 TD/TT: 06/04/25419 Corporate Lawyer: [facility] External Provider IMG CT PROCEDURES Final Result * (ABNORMAL) Urinalysis, Complete, with Reflex to Culture (06/03/2025 10:02 PM EDT) Color Urine RED [facility] Appearance Urine Turbid [facility] PH 7.0 5.0 - 9.0 [facility] Glucose Urine UA Negative Negative mg/dL [facility] Urine Blood Large (3+)(A) Negative [facility] Specific [place] - Urine 1.020 1.005 - 1.025 [facility] Urine Protein See Note Neg-Trace mg/dL [facility] Comment:Urine pigment obscur ed dipstick results. Urine Ketones See Note Negative mg/dL [facility] Comment:Urine pigment obscur ed dipstick results. Nitrite Urine See Note Negative [facility] Comment:Urine pigment obscur ed dipstick results. Leukocyte Esterase Urine Moderate (2+)(A) Negative [facility] RBC Urine >20(A) 0 - 2 /HPF [facility] Urine WBC >50(A) 0 - 5 /HPF [facility] Urine Squamous Epithelial Cell 0-2 0 - 2 /HPF [facility] Urine Bacteria Trace None Seen [facility] Hyaline Casts, Urine 0-2 0 - 2 /LPF [facility] 06/03/2025 10:0 2 PM EDT 06/03/2025 10:06 PM EDT [facility] - 06/03/2025 10:29 PM EDT 2201Urine, Clean Catch Generic External Data Provider LAB URINE ORDERAB LES Final Result Performing Organization Address [facility] de Phone Number [facility] [address] [place] [phone] * Culture, Urine, Routine (06/03/2025 12:00 AM EDT) Urine Urine specimen obtained by clean catch procedure / Unknown 06/03/2025 06/03/2025 Comment:[facility] - 06/06/2025 7:30 AM EDT Klebsiella [...] GENERAL ORDERABLES Final Result Performing Organization Address [facility] [address] [facility] Co de Phone Number [facility] [address] [place] [phone] * BI Mammogram Screening Tomosynthesis Bilateral (06/14/2024 8:45 AM EDT) Anatomical Region Laterality Modality Breast Bilateral Mammography 06/14/2024 8:45 AM EDT Narrative 06/27/2024 3:57 PM EDT [address] [place] [address] Mammography Report Signed Patient: Leanne Vega MR#: [id number] 46 : 1975 Acct:[id number] Age/Sex: 49 / F ADM Date: 06/14/24 Loc: NAYANA Attending Dr: Breana Raphael CUSTOMS OFFICER Ordering Physician: Breana Raphael CUSTOMS OFFICER Results: 2Benig n Findings Date of Service: 06/14/24 Follow Up: 1 Year From Orig [facility] Mammogram Procedure(s): MM tomosynthesis screening BI Accession Number(s): [id number] cc: Breana Raphael CUSTOMS OFFICER EXAMINATION: MM SCREENING DIGITAL BREAST TOMOSYNTHESIS, BILATERAL [...] 06/27/24 1554 DD/ 0845 TD/TT: 06/14/24 0900 Corporate Lawyer: Procedure Note Donotuseinterpreter, Image - 06/27/20[facility] [address] [place] [address] Mammography Report Signed Patient: Leanne Vega CMR#: [id number] 46 : 1975Acct:[id number] Age/Sex: 49 / FADM Date: 06/14/24 Loc: SAMIRO Attending Dr: Breana Raphael CUSTOMS OFFICER Ordering Physician: Breana Raphael FNPResults: 2Benig n Findings Date of Service: 06/14/24Follow Up: 1 Year From Orig inal Mammogram Procedure(s): MM tomosynthesis screening BI Accession Number(s): [id number] cc: Breana Raphael CUSTOMS OFFICER EXAMINATION: MM SCREENING DIGITAL BREAST TOMOSYNTHESIS, BILATERAL [...] 06/27/24 1554 DD/ 0845 TD/TT: 06/14/24 0900 Corporate Lawyer: Breana Raphael CUSTOMS OFFICER IMG BI PROCEDURES Final Result from Last 3 Months or Most Recently Relevant to Health Maintenance Insurance [facility] AD[facility] Care Teams Work Station Support Specialist Relationship Specialty Start Date End Date Breana Raphael FNP [address] [place] [address] PCP - General Family Medicine 03/27/22
== END 2025-07-22 07:45 | disposition home or self-care (01) ==
LOC: HO.MAMMO 07:44
PROVIDERS: PCP Registered Nurse; Visit Provider Registered Nurse
DX: Z12.31 Encounter for screening mammogram for malignant neoplasm of breast (principal)
CPT/HCPCS: 77063; 77067

== ENCOUNTER → 2025-07-22 07:45 | Outpatient (BNV) | payer MEDICAID, SELFPAY | PROVIDERS: PCP Registered Nurse; Visit Provider Internal Medicine | DX: Z12.31 Encounter for screening mammogram for malignant neoplasm of breast (principal) | CPT/HCPCS: 77063; 77067 ==

== ENCOUNTER 2025-08-28 09:11 | Emergency (ER) | payer MEDICAID, SELFPAY ==
--- NOTE | ~2025-08-28 | XR_ITS ---
EXAMINATION: XR CHEST CLINICAL INFORMATION: bradycardia COMPARISON: X-ray 06/16/2025 TECHNIQUE: Frontal view of the chest was obtained. FINDINGS: The cardiomediastinal silhouette is within normal limits. The lungs are well expanded. There is no focal consolidation, edema, or effusion. No pneumothorax. No acute osseous abnormality. XR/XR chest 1V IMPRESSION: No acute cardiopulmonary findings. Electronically signed by: Jerardo Rojas MD 08/28/2025 09:45 AM [facility] [place]
--- NOTE | 2025-08-28 09:17 | ECG_ITS ---
Test Reason : CP Blood Pressure : */* mmHG Vent. Rate : 68 BPM Atrial Rate : 68 BPM P-R Int : 178 ms QRS Dur : 90 ms QT Int : 372 ms P-R-T Axes : 37 20 49 degrees QTcB Int : 395 ms Normal sinus rhythm Low voltage QRS Septal infarct (cited on or before 15-Jun-2025) ; could be related to body habitus and lead placement Abnormal ECG When compared with ECG of 15-Jun-2025 14:14, No significant change was found Referred By: Generic ED Physician Electronically Signed By: ARLEY CARLSON
[2025-08-28 09:26] VITALS: BP 146/69; PULSE 74; RESP 18; TEMP 36.6; O2SAT 98; BMI 29.5
[2025-08-28 09:54] VITALS: BP 140/73; PULSE 68; RESP 20; O2SAT 99
--- NOTE | 2025-08-28 09:56 | PC.NURSE ---
a&ox4. vss and up to date. 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 pt reports hx of asthma - lungs CTA. ekg obtained in triage. 20gIV placed in the right AC - labs obtained/sent to lab. pending CXR to be completed. otherwise on RA w/o difficulty - no sob/wob noted. respirations even/unlabored. plan of care ongoing. call whelan placed within reach.
[2025-08-28 09:58] LABS: MANUAL DIFF FLAG NO
[2025-08-28 10:03] LABS: Hematocrit 41.1 % (37.0-47.0); Hemoglobin 14.2 g/dl (12.0-16.0); Imm Gran Abs Auto 0.02 X10*3/uL (0.00-0.03); Imm Gran Pct Auto 0.3 % (0.0-0.4); Lymphocytes Absolute Auto 2.7 X10*3/uL (1.2-4.9); Mean Corpuscular HGB Conc 34.5 g/dl (31.0-35.0); Mean Corpuscular Hemoglobin 31.3 pg (27.0-33.0); Mean Corpuscular Volume 90.7 fL (80.0-98.0); NRBC Abs Auto 0.000 X10*3/uL (0.0-0.012); NRBC Pct Auto 0.0 /100WBC (0.0-0.2); Platelet Count 292 X10*3/uL (160-400); Red Blood Count 4.53 X10*6/uL (4.20-5.50); White Blood Count 7.8 X10*3/uL (4.8-10.8)
[2025-08-28 10:13] LABS: Anion Gap 10 (12-20); Blood Urea Nitrogen 15 mg/dL (9-16); Calcium 9.1 mg/dL (8.4-10.2); Carbon Dioxide 24 mmol/L (22-29); Chloride 112 mmol/L (96-108); Creatinine Clr Calc Pharmacy 77.3; Estimated Glomerular Filt Rate > 60; Potassium 3.7 mmol/L (3.3-5.1); Sodium 142 mmol/L (135-145)
[2025-08-28 10:26] LABS: Troponin-I High Sensitivity < 2.7 ng/L (<3.5-17.0)
--- OUTSIDE RECORDS SUMMARY | 2025-08-28 11:26 | XMS_ITS | Encounter Summary ---
Author Organization [employer] Address [address] [facility] [address] [place] [address] Care Team Providers Care Coordinator Of Evaluation Name Role Phone Breana Raphael FIDEL Primary Care Provider [phone] Encounter Details Date Type Department Care Team (Late st Contact Info) Description 08/28/2025 Orders Only [facility] External Provider, [facility] Social History Tobacco Use Types Packs/Day Years [...] the past 12 months, has t he [employer], gas, oil or water company threatened to [...] Description 09/25/2025 4:00 PM EST Office Visit [facility] [address] [place] [address] Breana Raphael, ORIENTAL MEDICINE PRACTITIONER [address] [place] [address] documented as of this encounter Procedures Procedure Name Priority Date/Time Associated Diagnosis Comments HIGH SENSITIVITY TROPONIN I Routine 08/28/2025 9:54 AM EST CBC WITH AUTO DIFFERENTIAL Routine 08/28/2025 9:54 AM EST BASIC METABOLIC PANEL Routine 08/28/2025 9:54 AM EST XR CHEST 1 VIEW Routine 08/28/2025 9:40 AM EST documented in this encounter Results * High Sensitivity Troponin I (08/28/2025 9:54 AM EST) TROPONIN I HIGH SENSITIVITY <2.7 <3.5 - 17.0 ng/L [facility] Comment:The [place] high sens itivity Troponin-I results should beused in conjunction with other diagnostic information suchas ECG, clinical observations and information, and patientsymptoms to aid in the diagnosis of PA. 08/28/2025 9:54 AM EST 08/28/2025 9:57 AM EST us Generic External Data Provider LAB BLOOD ORDERAB LES Final Result Performing Organization Address City/[facility]/ZIP Co de Phone Number [facility] [address] [place] [address] [phone] * (ABNORMAL) Basic Metabolic Panel (08/28/2025 9:54 AM EST) Sodium 142 135 - 145 mmol/L [facility] Potassium 3.7 3.3 - 5.1 mmol/L [facility] Chloride 112(H) 96 - 108 mmol/L [facility] Carbon Dioxide 24 22 - 29 mmol/L [facility] Anion Gap 10(L) 12 - 20 [facility] Urea Nitrogen (BUN) 15 9 - 16 mg/dL [facility] Creatinine, Serum 0.87 0.5 - 1.4 mg/dL [facility] Creatinine Clr Calc Pharmacy 77.3 [facility] Comment:Provided height and weight: 162.56 cm,78 kg.eGFR (calculated from the MDRD study equation) and eCrCl(calculated from the Cockcroft-Gault equation) are based ondifferent parameters and may not yield comparable results.If eCrCl result is absurd, please check patient'sheight/weight. Estimated Glomerular Filt Rate >60 [facility] Comment:Chronic Kidney Disea se: Estimated GFR < 60 mL/min/[id number] Kidney Disease: Estimated GFR < 15 mL/min/1.73m2 Glucose 91 60 - 115 mg/dL [facility] Calcium 9.1 8.4 - 10.2 mg/dL [facility] 08/28/2025 9:54 AM EST 08/28/2025 9:57 AM EST us Generic External Data Provider LAB BLOOD ORDERAB LES Final Result Performing Organization Address City/[facility]/ZIP Co de Phone Number [facility] [address] [place] [address] [phone] * CBC auto differential (08/28/2025 9:54 AM EST) White Blood Count 7.8 4.8 - 10.8 X10*3/uL [facility] Red Blood Count 4.53 4.20 - 5.50 X10*6/uL [facility] Hemoglobin 14.2 12.0 - 16.0 g/dl [facility] Hematocrit 41.1 37.0 - 47.0 % [facility] Mean Corpuscular Volume 90.7 80.0 - 98.0 fL [facility] Mean Corpuscular Hemoglobin 31.3 27.0 - 33.0 pg [facility] Mean Corpuscular HGB Conc 34.5 31.0 - 35.0 g/dl [facility] Red Cell Distribution Width 12.3 11.0 - 16.0 % [facility] Platelet Count 292 160 - 400 X10*3/uL [facility] Mean Platelet Volume 9.5 9.4 - 12.3 fL [facility] Neutrophils Percent Auto 58.0 45 - 73 % [facility] Imm Gran Pct Auto 0.3 0.0 - 0.4 % [facility] Lymphocytes Percent Auto 34.0 20 - 40 % [facility] Monocytes Percent Auto 5.0 2 - 11 % [facility] Eosinophils Percent Auto 2.2 0 - 4 % [facility] Basophils Percent Auto 0.5 0 - 2 % [facility] NRBC Pct Auto 0.0 0.0 - 0.2 /100WBC [facility] Neutrophils Absolute Auto 4.6 2.0 - 8.3 x10*3/uL [facility] Imm Gran Abs Auto 0.02 0.00 - 0.03 X10*3/uL [facility] Lymphocytes Absolute Auto 2.7 1.2 - 4.9 X10*3/uL [facility] Monocytes Absolute Auto 0.4 0.1 - 1.2 X10*3/uL [facility] Eosinophils Absolute Auto 0.2 0.0 - 0.4 X10*3/uL [facility] Basophils Absolute Auto 0.0 0.0 - 0.2 X10*3/uL [facility] NRBC Abs Auto 0.000 0.0 - 0.012 X10*3/uL [facility] 08/28/2025 9:54 AM EST 08/28/2025 9:57 AM EST us Generic External Data Provider LAB BLOOD ORDERAB LES Final Result Performing Organization Address City/State/[facility] Co de Phone Number [facility] [address] [place] [phone] * XR Chest 1 View (08/28/2025 9:40 AM EST) Anatomical Region Laterality Modality Chest Radiographic Lary ging 08/28/2025 9:40 AM EST Narrative 08/28/2025 9:48 AM EST [address] [address] XRay Report Signed Patient: Leanne Vega MR#: [id number] 46 : 1975 Acct:[id number] Age/Sex: 50 / F ADM Date: 08/28/25 Loc: .ED Attending Dr: Ordering Physician: Generic ED Physician Date of Service: 08/28/25 Procedure(s): XR chest 1V Accession Number(s): [id number] cc: Generic ED Physician; Breana Raphael Reason for Exam: bradycardia EXAMINATION: XR CHEST CLINICAL INFORMATION: bradycardia COMPARISON: X-ray 06/16/2025 TECHNIQUE: Frontal view of the chest was obtained. FINDINGS: The cardiomediastinal silhouette is within normal limits. The lungs are well expanded. There is no focal consolidation, edema, or effusion. No pneumothorax. No acute osseous abnormality. XR/XR chest 1V IMPRESSION: No acute cardiopulmonary findings. Electronically signed by: Jerardo Rojas MD 08/28/2025 09:45 AM EST Dictated By: Jerardo Rojas MD Signed By: <Electronically signed by Jerardo Rojas MD in OV> 08/28/25944 DD/ 9 TD/TT: 08/28/25940 Heel Breaster: YOAV Procedure Note Donotuseinterpreter, Image - 08/28/[address] [address] XRay Report Signed Patient: Leanne Vega CMR#: [id number] 46 : 1975Acct:[id number] Age/Sex: 50 / FADM Date: 08/28/25 Loc: HO.ED Attending Dr: Ordering Physician: Generic ED Physician Date of Service: 08/28/25 Procedure(s): XR chest 1V Accession Number(s): [id number] cc: Generic ED Physician; Breana Raphael Reason for Exam: bradycardia EXAMINATION: XR CHEST CLINICAL INFORMATION: bradycardia COMPARISON: X-ray 06/16/2025 TECHNIQUE: Frontal view of the chest was obtained. FINDINGS: The cardiomediastinal silhouette is within normal limits. The lungs are well expanded. There is no focal consolidation, edema, or effusion. No pneumothorax. No acute osseous abnormality. XR/XR chest 1V IMPRESSION: No acute cardiopulmonary findings. Electronically signed by: Jerardo Rojas MD 08/28/2025 09:45 AM [facility] Dictated By: Jerardo Rojas MD Signed By: <Electronically signed by Jerardo Rojas MD in OV> 08/28/2545 DD/ 9 TD/TT: 08/28/25940 Heel Breaster: YOAV [facility] External Provider IMG XR PROCEDURES Edited Result - Final documented in this encounter Visit Diagnoses Not on filedocumented in this encounter Additional Health Concerns Assessment Noted Time PHQ-9 Depression Total Score: 21 06/21/ 025 3:49 PM EDT documented as of this encounter Care Teams Coordinator Of Evaluation Relationship Specialty Start Date End Date Breana Raphael FNP [address] [place] [address] PCP - General Family Medicine 03/27/22 documented as of this encounter
--- OUTSIDE RECORDS SUMMARY | 2025-08-28 11:26 | XMS_ITS | Clinical Summary ---
Author Organization [employer] Address [address] [place] [address] Care Team Providers Care Lean Engineer Name Role Phone Breana Raphael FIDEL Primary Care Provider [phone] Allergies No known active allergies Medications nicotine [...] (06/16/2025 9:48 AM EDT): Case presented to [facility] emergency room ambulance called Hypokalemia 06/16/2025 Assessment & Plan (06/16/2025 9:48 AM EDT): Case presented to [facility] emergency room ambulance called History of pulmonary embolism 06/16/2025 Persistent dry cough 07/19/2024 Assessment & Plan (07/03/2025 5:00 PM EDT): Reports the albuterol is effective; twice a day use Will switch to a [place] [facility] inhaler for better control Orders: Pulmonary Function [...] 06/24/24 Colonoscopy: Referral to Dr. Zambrano at [facility] in May 2024 Pap: Last ~2009, denies [...] for her in the past -Referred to [facility] LDCT for lung CA screening 06/24/24 Assessment & Plan (02/05/2023 11:09 AM EDT): Typically 6-12 cigg/day (depends on stress level) Discussed available smoking cessation resources through [facility] Encounters Date Type Department Care Team Description 08/28/2025 Orders Only [facility] External Provider, [facility] 07/22/2025 Orders Only [facility] [address] [place] [address] Breana Raphael FNP 07/03/2025 3:30 PM EDT Office Visit [facility] [address] [place] [address] Breana Raphael FNP Dyspnea, unspecified type (Primary Dx); Persistent dry cough; Cigarette nicotine dependence without complication 07/03/2025 Travel 06/21/2025 3:30 PM EDT Office Visit [facility] [address] [place] [address] Jayda Fuentes CNP Abnormal ECG (Primary Dx); Bronchitis 06/21/2025 Travel 06/21/2025 Telephone [facility] [address] [place] [address] Breana Raphael FNP chart prep 06/16/2025 10:00 AM EDT [facility] [address] [address] Leanne Morales MD Dyspnea, unspecified type (Primary Dx); Hypokalemia; History of pulmonary embolism 06/16/2025 Results Follow-Up [address] [address] Bre Cho ANP XR Chest 2 Views 06/16/2025 Orders Only [facility] External Provider, [facility] 06/16/2025 Results Follow-Up [address] [address] Ev Fang RN CBC auto differential, COVID-19 ID NOW (RAMSAY), Influenza A B2 ID NOW (Ramsay), Additional followed-up results: 5 06/16/2025 [facility]phone [facility] [address] [address] Leanne Morales MD In person triage 06/16/2025 Travel 06/15/2025 Orders Only GENERIC EXTERNAL DATA DEPARTMENT Provider, Generic External Data 06/09/[address] [address] Bre Cho ANP Tracheostomy Tube Check 06/08/2025 Telephone [facility] [address] [place], [place] [phone] Breana Raphael FNP Appointment Request 06/07/2025 5:00 PM EDT [facility] [address] [address] Bre Cho ANP Cough in adult patient (Primary Dx); SOB (shortness of breath) 06/07/2025 [facility]phone [facility] [address] [phone] Bre Cho ANP Triage 06/03/2025 Orders Only [...] Description 09/25/2025 4:00 PM EST Office Visit [facility] [address] [place] [address] Breana Raphael, INTERNAL COMMUNICATIONS SPECIALIST [address] [place] [address] Health Maintenance Due Date Last Done Comments [...] 07/24/2023 01/21/2023 Dental X-Ray: Bitewings 01/23/2024 01/21/2023 RSV Patients and Patients Aged 60 years or older (1 - Risk 50-74 years 1-dose series) 2024 Zoster Vaccines (1 of 2) 2024 COVID-19 Vaccine (1 - season) 2025 Influenza Vaccine (#1) 2025 SDOH Screening 06/24/2025 06/24/2024 Depression Monitoring 12/19/2025 06/21/2025, 025 Tobacco Screening 06/07/2026 06/07/2025 Disability Screening 06/16/2026 06/16/2025 Mammogram 07/22/2026 07/22/2025, 05/29, 03/26/2023, Additional history exists HIB Vaccines Aged Out No longer eligi [...] TROPONIN I Routine 08/28/2025 9:54 AM EST BASIC METABOLIC PANEL Routine 08/28/2025 9:54 AM EST CBC WITH AUTO DIFFERENTIAL Routine 08/28/2025 9:54 AM EST XR CHEST 1 VIEW Routine 08/28/2025 9:40 AM EST BI MAMMOGRAM SCREENING TOMOSYNTHESIS BILATERAL Routine 07/22/2025 7:[address] CHEST W CONTRAST Routine 06/16/2025 2 :02 PM EDT XR CHEST 2 VIEWS Routine 06/16/2025 9:00 AM EDT SOB (shortness of breath) SLIDE REVIEW Routine 06/15/2025 2:22 PM EDT MAGNESIUM Routine 06/15/2025 2:22 PM EDT BASIC METABOLIC PANEL Routine 06/15/2025 2:22 PM EDT HEPATIC FUNCTION PANEL Routine 2:22 PM EDT HIGH SENSITIVITY TROPONIN I Routine 06/15/2025 2:22 PM EDT COVID-19 ID NOW ([facility]) Routine 06/15/2025 2:22 PM EDT CBC WITH AUTO DIFFERENTIAL Routine 06/15/2025 2:22 PM EDT INFLUENZA A B2 ID NOW ([facility]) Routine 06/15/2025 2:22 PM EDT POCT RAPID [...] URINE, ROUTINE Routine 06/03/2025 12:00 AM EDT PROPHYLAXIS - ADULT Routine 01/21/2023 4 :00 PM EDT Encounter for dental examination Periodontal disease BITEWINGS - 2 RADIOGRAPHIC IMAGES Routine 01/21/2023 4:00 PM EDT Encounter for dental examination Periodontal disease from Last 3 Months or Most Recently Relevant to Health Maintenance Results * High Sensitivity Troponin I (08/28/2025 9:54 AM EST) Only the most recent of2 resultswithin the time period is included. [facility] TROPONIN I HIGH SENSITIVITY <2.7 <3.5 - 17.0 ng/L [facility] Comment:The Ramsay high sens itivity Troponin-I results should beused in conjunction with other diagnostic information suchas ECG, clinical observations and information, and patientsymptoms to aid in the diagnosis of MO. 08/28/2025 9:54 AM EST 08/28/2025 9:57 AM EST us Generic External Data Provider LAB BLOOD ORDERAB LES Final Result Performing Organization Address City/State/[facility] Co de Phone Number [facility] [address] [place] [phone] * CBC auto differential (08/28/2025 9:54 AM EST) Only the most recent of3 resultswithin the time period is included. [facility] White Blood Count 7.8 4.8 - 10.8 X10*3/uL [facility] Red Blood Count 4.53 4.20 - 5.50 X10*6/uL [facility] Hemoglobin 14.2 12.0 - 16.0 g/dl [facility] Hematocrit 41.1 37.0 - 47.0 % [facility] Mean Corpuscular Volume 90.7 80.0 - 98.0 fL [facility] Mean Corpuscular Hemoglobin 31.3 27.0 - 33.0 pg [facility] Mean Corpuscular HGB Conc 34.5 31.0 - 35.0 g/dl [facility] Red Cell Distribution Width 12.3 11.0 - 16.0 % [facility] Platelet Count 292 160 - 400 X10*3/uL [facility] Mean Platelet Volume 9.5 9.4 - 12.3 fL [facility] Neutrophils Percent Auto 58.0 45 - 73 % [facility] Imm Gran Pct Auto 0.3 0.0 - 0.4 % [facility] Lymphocytes Percent Auto 34.0 20 - 40 % [facility] Monocytes Percent Auto 5.0 2 - 11 % [facility] Eosinophils Percent Auto 2.2 0 - 4 % [facility] Basophils Percent Auto 0.5 0 - 2 % [facility] NRBC Pct Auto 0.0 0.0 - 0.2 /100WBC [facility] Neutrophils Absolute Auto 4.6 2.0 - 8.3 x10*3/uL [facility] Imm Gran Abs Auto 0.02 0.00 - 0.03 X10*3/uL [facility] Lymphocytes Absolute Auto 2.7 1.2 - 4.9 X10*3/uL [facility] Monocytes Absolute Auto 0.4 0.1 - 1.2 X10*3/uL [facility] Eosinophils Absolute Auto 0.2 0.0 - 0.4 X10*3/uL [facility] Basophils Absolute Auto 0.0 0.0 - 0.2 X10*3/uL [facility] NRBC Abs Auto 0.000 0.0 - 0.012 X10*3/uL [facility] 08/28/2025 9:54 AM EST 08/28/2025 9:57 AM EST us Generic External Data Provider LAB BLOOD ORDERAB LES Final Result [facility] [address] [place] [phone] * (ABNORMAL) Basic Metabolic Panel (08/28/2025 9:54 AM EST) Only the most recent of3 resultswithin the time period is included. Sodium 142 135 - 145 mmol/L [facility] Potassium 3.7 3.3 - 5.1 mmol/L [facility] Chloride 112(H) 96 - 108 mmol/L [facility] Carbon Dioxide 24 22 - 29 mmol/L [facility] Anion Gap 10(L) 12 - 20 [facility] Urea Nitrogen (BUN) 15 9 - 16 mg/dL [facility] Creatinine, Serum 0.87 0.5 - 1.4 mg/dL [facility] Creatinine Clr Calc Pharmacy 77.3 [facility] Comment:Provided height and weight: 162.56 cm,78 kg.eGFR (calculated from the MDRD study equation) and eCrCl(calculated from the Cockcroft-Gault equation) are based ondifferent parameters and may not yield comparable results.If eCrCl result is absurd, please check patient'sheight/weight. Estimated Glomerular Filt Rate >60 [facility] Comment:Chronic Kidney Disea se: Estimated GFR < 60 mL/min/1.74o4Qovqls Kidney Disease: Estimated GFR < 15 mL/min/1.73m2 Glucose 91 60 - 115 mg/dL [facility] Calcium 9.1 8.4 - 10.2 mg/dL [facility] 08/28/2025 9:54 AM EST 08/28/2025 9:57 AM EST us Generic External Data Provider LAB BLOOD ORDERAB LES Final Result Performing Organization Address City/State/[facility] Co de Phone Number [facility] [address] [place] [phone] * XR Chest 1 View (08/28/2025 9:40 AM EST) Anatomical Region Laterality Modality Chest Radiographic Lary ging 08/28/2025 9:40 AM EST Narrative 08/28/2025 9:48 AM EST [address] [address] XRay Report Signed Patient: Leanne Vega MR#: [id number] 46 : 1975 Acct:[id number] Age/Sex: 50 / F ADM Date: 08/28/25 Loc: .ED Attending Dr: Ordering Physician: Generic ED Physician Date of Service: 08/28/25 Procedure(s): XR chest 1V Accession Number(s): [id number] cc: Generic ED Physician; Breana Raphael Reason [...] Jerardo Rojas MD 08/28/2025 09:45 AM EST RP Dictated By: Jerardo Rojas MD Signed By: <Electronically signed by Jerardo Rojas MD in OV> 08/28/25944 DD/ 9 TD/TT: 08/28/25940 Intelligence Officer Basic: YOAV Procedure Note Donotuseinterpreter, Image - 08/28/2025 [place] [address] XRay Report Signed Patient: Leanne Vega CMR#: [id number] 46 : 1975Acct:[id number] Age/Sex: 50 / FADM Date: 08/28/25 Loc: .ED Attending Dr: Ordering Physician: Generic ED Physician Date of Service: 08/28/25 Procedure(s): XR chest 1V Accession Number(s): [id number] cc: Generic ED Physician; Breana Raphael Reason [...] Jerardo Rojas MD 08/28/2025 09:45 AM EST RP Dictated By: Jerardo Rojas MD Signed By: <Electronically signed by Jerardo Rojas MD in OV> 08/28/25 0945 DD/ 0940 TD/TT: 08/28/25 0941 Intelligence Officer Basic: YOAV [facility] External Provider IMG XR PROCEDURES Edited Result - Final * BI Mammogram Screening Tomosynthesis Bilateral (07/22/2025 7:46 AM EDT) Anatomical Region Laterality Modality Breast Bilateral Mammography 07/22/2025 7:46 AM EDT Narrative 07/25/2025 11:44 AM EDT [address] [place] [address] Mammography Report Signed Patient: Leanne Vega MR#: [id number] 46 : 1975 Acct:[id number] Age/Sex: 50 / F ADM Date: 07/22/25 Loc: MAMMO Attending Dr: Breana Raphael INTERNAL COMMUNICATIONS SPECIALIST Ordering Physician: Breana Raphael Results: 2Benig n Date of Service: 07/22/25 Follow Up: 1 Year From Orig ina Mammogram Procedure(s): MM tomosynthesis screening BI Accession Number(s): [id number] cc: Breana Raphael Reason For Exam: SCREENING EXAMINATION: MM SCREENING DIGITAL BREAST TOMOSYNTHESIS, BILATERAL CLINICAL INFORMATION: Screening. Asymptomatic. COMPARISON: Mammography: Comparison is made with available priors TECHNIQUE: Digital breast mammography with tomosynthesis is performed in both the craniocaudal and mediolateral oblique views along with computer-aided detection (CAD). FINDINGS: There are scattered areas of fibroglandular density. Bilateral circumscribed oval masses which wax and wane consistent with benign fibrocystic changes and cysts. Some simple to minimally complicated cysts were demonstrated on prior ultrasounds. There are no significant masses, abnormal calcifications, or other abnormalities. MM/MM tomosynthesis screening BI IMPRESSION: No mammographic evidence of malignancy. ASSESSMENT: BI-RADS Category 2: Benign RECOMMENDATION: Routine annual mammography screening. 1 year F/U This examination should not preclude the clinical evaluation of a suspicious palpable abnormality. This patient's information was entered into a reminder system with a target due date for their next mammogram. Electronically signed by: Jasmin Koo DO 07/25/2025 11:42 AM EDT RP Dictated By: Jasmin Koo DO Signed By: <Electronically signed by Jasmin Koo DO in OV> 07/25/25 1142 DD/ 0746 TD/TT: 07/22/25 0759 Intelligence Officer Basic: Procedure Note Donotuseinterpreter, Image - 07/25/2025 [facility] [address] [place], [place] [address] Mammography Report Signed Patient: Leanne Vega CMR#: [id number] 46 : 1975Acct:[id number] Age/Sex: 50 / FADM Date: 07/22/25 Loc: HO.MAMMO Attending Dr: Breana Raphael INTERNAL COMMUNICATIONS SPECIALIST Ordering Physician: Breana Raphael FNPResults: 2Benig n Date of Service: 07/22/25Follow Up: 1 Year From Orig inal Mammogram Procedure(s): MM tomosynthesis screening BI Accession Number(s): [id number] cc: Breana Raphael Reason For Exam: SCREENING EXAMINATION: MM SCREENING DIGITAL BREAST TOMOSYNTHESIS, BILATERAL CLINICAL INFORMATION: Screening. Asymptomatic. COMPARISON: Mammography: Comparison is made with available priors TECHNIQUE: Digital breast mammography with tomosynthesis is performed in both the craniocaudal and mediolateral oblique views along with computer-aided detection (CAD). FINDINGS: There are scattered areas of fibroglandular density. Bilateral circumscribed oval masses which wax and wane consistent with benign fibrocystic changes and cysts. Some simple to minimally complicated cysts were demonstrated on prior ultrasounds. There are no significant masses, abnormal calcifications, or other abnormalities. MM/MM tomosynthesis screening BI IMPRESSION: No mammographic evidence of malignancy. ASSESSMENT: BI-RADS Category 2: Benign RECOMMENDATION: Routine annual mammography screening. 1 year F/U This examination should not preclude the clinical evaluation of a suspicious palpable abnormality. This patient's information was entered into a reminder system with a target due date for their next mammogram. Electronically signed by: Jasmin Koo DO 07/25/2025 11:42 AM EDT Dictated By: Jasmin Koo DO Signed By: <Electronically signed by Jasmin Koo DO in OV> 07/25/25 1142 DD/ 0746 TD/TT: 07/22/25 0759 Intelligence Officer Basic: us Breana Raphael INTERNAL COMMUNICATIONS SPECIALIST IMG BI PROCEDURES Final Result * CT Chest w/ Contrast (06/16/2025 2:02 PM EDT) Anatomical Region Laterality Modality Body, Chest Computed Tomogra phy 06/16/2025 2:02 PM EDT Narrative 06/16/2025 2:29 PM EDT [place] [address] CT Scan Report Signed Patient: Leanne Vega MR#: [id number] 46 : 1975 Acct:[id number] Age/Sex: 50 / F ADM Date: 06/16/25 Loc: .ED Attending Dr: Ordering Physician: Farzaneh Patino NP Date of Service: 06/16/25 Procedure(s): CT chest w IV con Accession Number(s): [id number] cc: Breana Raphael; Farzaneh Patino NP Report Number: [id number]: Total DLP = 278.00 mGy-cm Reason for [...] 06/16/25 1426 DD/ 1402 TD/TT: 06/16/25 1412 Intelligence Officer Basic: Procedure Note Donotuseinterpreter, Image - 06/16/[address] [place] [address] [address] Scan Report Signed Patient: Leanne Vega CMR#: [id number] 46 : 1975Acct:[id number] Age/Sex: 50 / FADM Date: 06/16/25 Loc: .ED Attending Dr: Ordering Physician: Farzaneh Patino NP Date of Service: 06/16/25 Procedure(s): CT chest w IV con Accession Number(s): [id number] cc: Breana Raphael; Farzaneh Patino NP Report Number: [id number]: Total DLP = 278.00 mGy-cm Reason for [...] 06/16/25 1426 DD/ 1402 TD/TT: 06/16/25 1412 Intelligence Officer Basic: [facility] External Provider IMG CT PROCEDURES Edited Result - Final * XR Chest 2 Views (06/16/2025 9:00 AM EDT) Anatomical Region Laterality Modality Chest Radiographic Lary ging 06/16/2025 9:00 AM EDT Narrative 06/16/2025 9:10 AM EDT [address] [address] XRay Report Signed Patient: Leanne Vega MR#: [id number] 46 : 1975 Acct:[id number] Age/Sex: 50 / F ADM Date: 06/16/25 Loc: AMYX Attending Dr: Bre Cho NP Ordering Physician: BRE CHO NP Date of Service: 06/16/25 Procedure(s): XR chest 2V Accession Number(s): [id number] cc: BRE CHO NP Reason for Exam: [...] by Fernando Alonzo MD in OV> 06/16/25 09 DD/ 09 TD/TT: 06/16/25 0903 Intelligence Officer Basic: Procedure Note Donotuseinterpreter, Image - 06/16/[address] [address] XRay Report Signed Patient: Leanne Vega CMR#: [id number] 46 : 1975Acct:[id number] Age/Sex: 50 / FADM Date: 06/16/25 Loc: ORAL Attending Dr: Bre Cho NP Ordering Physician: BRE CHO NP Date of Service: 06/16/25 Procedure(s): XR chest 2V Accession Number(s): [id number] cc: BRE CHO NP Reason for Exam: [...] in OV> 06/16/25906 DD/ 9 TD/TT: 06/16/25 09 Intelligence Officer Basic: Bre Cho ANP IMG XR PROCEDURES Edited Result - Final * Influenza A B2 ID NOW (Ramsay) (06/15/2025 2:22 PM EDT) IDNOW SERIAL# [id number] [facility] Influenza A Negative Negative [facility] Influenza B2 Negative Negative [facility] Influenza A B2 Note See Note [facility] Comment:The Ramsay ID NOW In [...] LAB MICROBIOLOGY - GENERAL ORDERABLES Final Result [facility] [address] [place] [phone] * Slide Review (06/15/2025 2:22 PM EDT) Slide Review VERIFIED [facility] 06/15/2025 2:22 PM EDT 06/15/2025 2:27 PM EDT us Generic External Data Provider LAB BLOOD ORDERAB LES Final Result Performing Organization Address [facility]/ZIP Co de Phone Number [facility] [address] [place] [phone] * COVID-19 ID NOW (RAMSAY) (06/15/2025 2:22 PM EDT) [facility]NOW SERIAL# [id number] [facility] COVID-19 TEST Negative Negative [facility] COVID-19 NOTE See Note [facility] Comment: Results are for the identification of SARS-CoV2 RNA. TheSARS-CoV2 RNA is generally detectable in respiratory samplesduring the acute phase of infection. Positive results areindicative of the presence of SARS-CoV-2 RNA; clinicalcorrelation with patient history and other diagnosticinformation is necessary to determine patient infectionstatus. Positive results do not rule out bacterial infectionor co- infection with other viruses.Testing facilities within the [facility] and [facility] are required to report all positive [...] GNOSTICS ORDERABLES Final Result Performing Organization Address City/[facility]/ZIP Co de Phone Number [facility] [address] [place] [phone] * Magnesium (06/15/2025 2:22 PM EDT) [facility] Magnesium 2.2 1.6 - 2.6 mg/dL [facility] 06/15/2025 2:22 PM EDT 06/15/2025 2:27 PM EDT Generic External Data Provider LAB BLOOD ORDERAB LES Final Result Performing Organization Address [facility] de Phone Number [facility] [address] [place] [phone] * Hepatic Function Panel (06/15/2025 2:22 PM EDT) [facility] Bilirubin, Total 0.4 0.0 - 1.0 mg/dL [facility] Bilirubin, Direct 0.1 0.0 - 0.5 mg/dL [facility] Aspartate Amino Transferase 15 5 - 31 U/L [facility] Alanine Aminotransferase 16 0 - 31 U/L [facility] Total Protein 6.8 6.5 - 8.0 g/dL [facility] Albumin Level 4.1 3.5 - 5.0 g/dL [facility] Alkaline Phosphatase 75 39 - 117 U/L [facility] 06/15/2025 2:22 PM EDT 06/15/2025 2:27 PM EDT [facility] External Data Provider LAB BLOOD ORDERAB LES Final Result Performing Organization Address [facility] de Phone Number [facility] [address] [place] [phone] * POCT Rapid Covid-19 BinaxNOW (06/07/2025 5:00 PM EDT) [facility] Rapid COVID Ag Negative QC Media Lot # [id number] Lot# Expiration Date [id number] Swab 06/07/2025 5:00 PM EDT us Bre Cho ANP POINT OF CARE TEST ENTER/EDIT OR DERABLES Final Result * CT Abdomen Pelvis w/o Contrast (06/04/2025 4:20 AM EDT) Anatomical Region Laterality Modality Body, Pelvis, Abdomen Computed T omography 06/04/2025 4:20 AM EDT Narrative 06/04/2025 4:22 AM EDT [place] [address] CT Scan Report Signed Patient: Leanne Vega MR#: [id number] 46 : 1975 Acct:[id number] Age/Sex: 50 / F ADM Date: 06/04/25 Loc: HO.ED Attending Dr: Ordering Physician: Karlo Bedolla MD Date of Service: 06/04/25 Procedure(s): CT abdomen pelvis wo IV con Accession Number(s): [id number] cc: Karlo Bedolla MD; Breana Raphael [facility] Report Number: [id number]: Total DLP = 602.00 mGy-cm Reason for [...] in OV> 06/04/25420 DD/ 9 TD/TT: 06/04/25419 Intelligence Officer Basic: Procedure Note Karen, Image - 06/04/[address] [place] [address] [address] Scan Report Signed Patient: Leanne Vega CMR#: [id number] 46 : 1975Acct:[id number] Age/Sex: 50 / FADM Date: 06/04/25 Loc: HO.ED Attending Dr: Ordering Physician: Karlo Bedolla MD Date of Service: 06/04/25 Procedure(s): CT abdomen pelvis wo IV con Accession Number(s): [id number] cc: Karlo Bedolla MD; Breana Raphael INTERNAL COMMUNICATIONS SPECIALIST Report Number: [id number]: Total DLP = 602.00 mGy-cm Reason for [...] in OV> 06/04/25420 DD/ 9 TD/TT: 06/04/25419 Intelligence Officer Basic: [facility] External Provider IMG CT PROCEDURES Final Result * (ABNORMAL) Urinalysis, Complete, with Reflex to Culture (06/03/2025 10:02 PM EDT) Color Urine RED [facility] Appearance Urine Turbid [facility] PH 7.0 5.0 - 9.0 [facility] Glucose Urine UA Negative Negative mg/dL [facility] Urine Blood Large (3+)(A) Negative [facility] Specific [place] - Urine 1.020 1.005 - 1.025 [facility] Urine Protein See Note Neg-Trace mg/dL [facility] Comment:Urine pigment obscur ed dipstick results. Urine Ketones See Note Negative mg/dL [facility] Comment:Urine pigment obscur ed dipstick results. Nitrite Urine See Note Negative [facility] Comment:Urine pigment obscur ed dipstick results. Leukocyte Esterase Urine Moderate (2+)(A) Negative [facility] RBC Urine >20(A) 0 - 2 /HPF [facility] Urine WBC >50(A) 0 - 5 /HPF [facility] Urine Squamous Epithelial Cell 0-2 0 - 2 /HPF [facility] Urine Bacteria Trace None Seen [facility] Hyaline Casts, Urine 0-2 0 - 2 /LPF [facility] 06/03/2025 10:0 2 PM EDT 06/03/2025 10:06 PM EDT Narrative [facility] - 06/03/2025 10:29 PM EDT 2201Urine, Clean Catch Generic External Data Provider LAB URINE ORDERAB LES Final Result [facility] [address] [place] [phone] * Culture, Urine, Routine (06/03/2025 12:00 AM EDT) Urine Urine specimen obtained by clean catch procedure / Unknown 06/03/2025 06/03/2025 Comment:[facility] - 06/06/2025 7:30 AM EDT [...] GENERAL ORDERABLES Final Result Performing Organization Address City/State/[facility] [facility] de Phone Number [facility] [address] [place] [address] [phone] from Last 3 Months Insurance [facility] C[facility] MEDICAID STAND ADULT Care Teams Lean Engineer Relationship Specialty Start Date End Date Breana Raphael FNP [address] [place] [id number] PCP - General Family Medicine 03/27/22
--- NOTE | 2025-08-28 11:34 | ED_ITS ---
HPI - Chest Pain General Chief Complaint: Chest Pain Stated Complaint: CP Time Seen by Provider: 08/28/25 11:15 Source: patient Mode of arrival: ambulatory Limitations: no limitations History of Present Illness ED Provider: EDIN MERAZ PA-C HPI narrative: 50-year-old female with past medical history significant for pulmonary embolism, not currently on anticoagulation, nicotine dependence (15 cigarettes daily) presents to the emergency department today for evaluation of chest pain which began while at work this morning. Shortly after she developed nausea, shortness of breath, dizziness. This resolved shortly after however endorses continued chest pain, described as sharp, squeezing sensation worse with breathing. Radiates to her back and left shoulder. 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 Denies OCP/hormone replacement use, recent travel or long car rides. Denies fever, chills, cough, hemoptysis, leg pain/swelling, headache. Related Data Previous Rx's ?Medication ?Instructions ?Recorded sodium,potassium,mag sulfates 17.5 See Rx Instructions PO .COMPLEX 07/28/24 gram-3.13 gram-1.6 gram oral soln #354 mL (Suprep Bowel Prep Kit) ketorolac 10 mg tablet 10 mg PO TID PRN pain #10 ta bs 06/04/25 levofloxacin 500 mg tablet 500 mg PO DAILY #9 tabs 04/21 albuterol sulfate 90 mcg/actuation 2 puff inhalation Q 4-6H PRN 06/16/25 aerosol inhaler (Ventolin HFA) shortness of breath or wheezing #6.7 grams azithromycin 250 mg tablet See Rx Instructions PO .COM PLEX #6 06/16/25 tabs prednisone 10 mg tablet See Rx Instructions .Route 0 06/16/25 .COMPLEX #15 tabs Allergies Allergy/AdvReac Type Severity Reaction Status Date / Time No Known Allergies Allergy Verified 08/28/25 09:27 Review of Systems 2 Review of Systems: Yes all other systems are reviewed and are negative PMFSH Past Medical History Attestation statement: The following information was validated with the patient. Source: old records reviewed and nursing notes reviewed Medical History Colon cancer screening History of pulmonary embolus (PE) (~03/2010) Nicotine dependence, cigarettes, uncomplicated Thrombosed external hemorrhoid Surgical History History of tubal ligation History of Social History Social History Alcohol intake: never Patient Tobacco Use Status: Current everyday Tobacco user Cigarettes Per Day: 10 Years Smoked: (onset 12yo, 1-1.5ppd x 36yrs, now1/2ppd - 45pyh) Smoked in Last 30 Days: No Use of substances other than those prescribed or required for medical reasons: No Advance Directives: No Advance Directives Information Provided: No Do you have a plan to hurt others: No Plan Patient : No Physical Exam 2 Vital Signs: Vital Signs: Last Vital Signs Temp 98.2 F 08/28/25 14:03 Pulse 70 08/28/25 14:03 Resp 16 08/28/25 14:03 BP 133/82 08/28/25 14:03 Pulse Ox 94 08/28/25 14:03 O2 Del Method Room Air 08/28/25 14:03 BMI result Body Mass Index 29.5 Hypertensive. Not hypoxic or tachycardic General: Well appearing, in no acute distress. Skin: Warm, dry, intact. No rashes or lesions. Head: Normocephalic, atraumatic. EENT: Hearing is intact b/l. Conjunctiva clear. PERRLA. EOM intact. Moist mucous membranes.? Cardiac: Chest wall symmetric. RRR Lungs: Normal respiratory effort without accessory muscle use. CTA bilaterally Abdomen: Soft, non-tender, non-distended. No rebound tenderness or guarding. Positive BS x4. Back: No midline spinous or paraspinal tenderness. No step off deformity. Ext: Upper and lower extremities atraumatic, without tenderness, deformity, swelling or erythema. Full ROM throughout. no calf tenderness. Neuro: AOx3. Normal speech. Ambulating with steady gait. Psych: Appropriate mood and affect. Responds appropriately to questions. Course Course Course Narrative: CBC without leukocytosis or left shift. No anemia, H&H stable. Chemistry without acute electrolyte abnormality requiring intervention. No CHAD. Liver function WNL. Trop WNL x2. Chest x-ray unremarkable. EKG showing normal sinus rhythm, no acute ischemic changes or ST elevations. D-dimer undetectable, PE unlikely. > patient medicated with Toradol with improvement in symptoms. Patient has remained stable throughout ED visit today. Discussed worrisome signs and symptoms and when to return to the ED. All questions answered at this time. Patient is agreeable with disposition and stable for discharge. Medications Administered Discontinued Medications Generic Name Dose Route Start Last Admin Trade Name Freq PRN Reason Stop Dose Admin Ketorolac Tromethamine 15 mg 08/28/25 11:37 08/28/25 12:23 Ketorolac Tromethamine 15 Mg/Ml Vial IVPUSH 08/28/25 11:38 15 mg ONCE ONE Administration Medical Decision Making Medical Decision Making MDM Narrative: 50-year-old female with past medical history significant for pulmonary embolism, not currently on anticoagulation, nicotine dependence (15 cigarettes daily) presents to the emergency department today for evaluation of chest pain which began while at work this morning. Patient is hypertensive, not tachycardic or hypoxic. she is well appearing and in NAD. Exam benign. Differential diagnosis includes anemia, electrolyte abnormality, ACS, arrhythmia, costochondritis, PE, pneumonia Plan for labs, ekg, cxr, dimer Differential Diagnosis Differential Diagnoses: The differential diagnosis associated with the presentation includes as above. Admission/Observation Not indicated Lab Data MDM Lab Attestation statement: I reviewed the patient's lab results. As above 08/28/25 09:54 08/28/25 09:54 Labs: Lab Results 08/28/25 08/28/25 08/28/25 Range/Units 09:54 11:57 13:07 WBC 7.8 (4.8-10.8) X10*3/uL RBC 4.53 (4.20-5.50) X10*6/uL Hgb 14.2 (12.0-16.0) g/dl Hct 41.1 (37.0-47.0) % MCV 90.7 (80.0-98.0) fL MCH 31.3 (27.0-33.0) pg MCHC 34.5 (31.0-35.0) g/dl RDW 12.3 (11.0-16.0) % Plt Count 292 (160-400) X10*3/uL MPV 9.5 (9.4-12.3) fL Immature Gran % (Auto) 0.3 (0.0-0.4) % Neut % (Auto) 58.0 (45-73) % Lymph % (Auto) 34.0 (20-40) % [place] % (Auto) 5.0 (2-11) % Eos % (Auto) 2.2 (0-4) % Baso % (Auto) 0.5 (0-2) % Lymph # (Auto) 2.7 (1.2-4.9) X10*3/uL [place] # (Auto) 0.4 (0.1-1.2) X10*3/uL Eos # (Auto) 0.2 (0.0-0.4) X10*3/uL Baso # (Auto) 0.0 (0.0-0.2) X10*3/uL Abs Immat Gran (auto) 0.02 (0.00-0.03) X10*3/uL Absolute Neuts (auto) 4.6 (2.0-8.3) x10*3/uL Absolute Nucleated RBC 0.000 (0.0-0.012) X10*3/uL Nucleated RBC % (auto) 0.0 (0.0-0.2) /100WBC D-Dimer High Sensitivty < 150 NG/ML Sodium 142 (135-145) mmol/L Potassium 3.7 D (3.3-5.1) mmol/L Chloride 112 H (96-108) mmol/L Carbon Dioxide 24 (22-29) mmol/L Anion Gap 10 L (12-20) BUN 15 (9-16) mg/dL Creatinine 0.87 (0.5-1.4) mg/dL Estim Creat Clear Calc 77.3 Estimated GFR > 60 Random Glucose 91 (60-115) mg/dL Calcium 9.1 (8.4-10.2) mg/dL Troponin I High Sens < 2.7 3.5 (<3.5-17.0) ng/L Independent Interpretation I performed an independent interpretation of an: EKG and Plain X-Ray Interpretation: Chest x-ray without infiltrate or consolidation Radiology Impression Discussion of test interpretation with radiology: I have reviewed the radiologist's reading. Radiologist Impression: Procedure(s): XR chest 1V Accession Number(s): [id number] cc: Generic ED Physician; Phalen,Breana CAREER CENTER DIRECTOR~ Reason for Exam: bradycardia EXAMINATION: XR CHEST CLINICAL INFORMATION: bradycardia COMPARISON: X-ray 06/16/2025 TECHNIQUE: Frontal view of the chest was obtained. FINDINGS: The cardiomediastinal silhouette is within normal limits. The lungs are well expanded. There is no focal consolidation, edema, or effusion. No pneumothorax. No acute osseous abnormality. XR/XR chest 1V IMPRESSION: No acute cardiopulmonary findings. Electronically signed by: Jerardo Rojas MD 08/28/2025 09:45 AM [facility] [place] External Record Review External record reviewed: Inpatient record Prescription Management I considered prescription management with: Pain Medication Social Determinants Patient?s care significantly limited by Social Determinants of Health including: Other Social Determinant of Health Critical Care Time Critical Care Time Critical Care Time: No Discharge Plan Discharge Clinical Impression: Atypical chest pain Patient Disposition: Home, Self-Care Instructions: Chest Pain (ED), Chest Wall Pain (ED) Additional Instructions: You were evaluated in the Emergency Department today for chest pain. Your evaluation has shown no signs of medical conditions requiring emergent intervention at this time. You may take tylenol and motrin at home as needed for pain control. 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 If you do not have one, a referral has been provided. Please call them to make an appointment, they will not call you. Return to the Emergency Department if you experience worsening or uncontrolled chest pain, shortness of breath, lightheadedness, feeling faint, nausea, vomiting, or any other concerning symptoms. Prescriptions: No Action levofloxacin 500 mg tablet 500 mg PO DAILY Qty: 9 0RF ketorolac 10 mg tablet 10 mg PO TID PRN (Reason: pain) Qty: 10 0RF Rx Instructions: Do not mix this medication with NSAIDs, only Tylenol if needed azithromycin 250 mg tablet See Rx Instructions .ROUTE .COMPLEX Qty: 6 0RF Rx Instructions: For 250 mg dose pack: take 500 mg today (day 1), then 250 mg for 4 days (days 2-5) prednisone 10 mg tablet See Rx Instructions .ROUTE .COMPLEX Qty: 15 0RF Rx Instructions: 50mg (5 tabs) x1 day, then 40 mg (4 tabs) x1 day, then 30 mg (3 tabs) x1 day, then 20 mg (2 tabs) times 1 day, then 10 mg (1 tab) x1 day albuterol sulfate [Ventolin HFA] 90 mcg/actuation HFA aerosol inhaler 2 puff inhalation Q4-6H PRN (Reason: shortness of breath or wheezing) Qty: 6.7 0RF sodium,potassium,mag sulfates [Suprep Bowel Prep Kit] 17.5-3.13-1.6 gram recon soln See Rx Instructions PO .COMPLEX Qty: 354 0RF Rx Instructions: DILUTE; drink full amount early evening before AND next morning at least 2 hr before procedure; follow w 960 mL water PO Referrals: Breana Raphael FNP [Primary Care Provider, Family Practice] Stand Alone Forms: Work/School Release Interventions: ED Discharge Assessment Last Done: 08/28/25 14:03 Discharge Date/Time: 08/28/25 14:04 Print Language: Gabonese
[2025-08-28 12:45] LABS: D Dimer High Sensitivity < 150 NG/ML
[2025-08-28 13:39] LABS: Troponin-I High Sensitivity 3.5 ng/L (<3.5-17.0)
[2025-08-28 14:03] VITALS: BP 133/82; PULSE 70; RESP 16; TEMP 36.8; O2SAT 94
== END 2025-08-28 14:04 | disposition home or self-care (01) ==
PROVIDERS: Physician Assistant Medical; Emergency Provider Emergency Medicine Emergency Medical Services; PCP Registered Nurse
DX: R07.89 Other chest pain (principal); F17.210 Nicotine dependence, cigarettes, uncomplicated; Z86.711 Personal history of pulmonary embolism
CPT/HCPCS: 36415; 71045; 80048; 84484; 85025; 85379; 93005; 96374; 99284; 99285; J1885

== ENCOUNTER → 2025-08-28 09:17 | Outpatient (BNV) | payer MEDICAID, SELFPAY | PROVIDERS: Emergency Provider Emergency Medicine Emergency Medical Services; PCP Registered Nurse; Visit Provider Internal Medicine | DX: I25.2 Old myocardial infarction (principal) | CPT/HCPCS: 93010 ==

== ENCOUNTER → 2025-08-28 09:29 | Outpatient (BNV) | payer MEDICAID, SELFPAY | PROVIDERS: PCP Registered Nurse; Visit Provider Radiology Diagnostic Ultrasound | DX: R00.1 Bradycardia, unspecified (principal) | CPT/HCPCS: 71045 ==

== ENCOUNTER 2025-09-08 07:59 | Outpatient (REF) | payer MEDICAID, SELFPAY ==
--- NOTE | 2025-09-08 | PFT_ITS ---
Spirometry [] Lung Volumes [] Diffusion Capacity [] Methacholine Challenge [] Flow Volume Loops [] MVV [] MIP/MEP(Max inspiratory pressure/Max expiratory pressure) [] 6 Minute Walk Test [] ABG [] Interpretation [] MTDD
[2025-09-08 08:50] VITALS: PULSE 71
== END 2025-09-08 08:00 | disposition home or self-care (01) ==
LOC: HO.RESP 07:59
PROVIDERS: PCP Registered Nurse; Visit Provider Registered Nurse
DX: R05.3 Chronic cough (principal); R06.00 Dyspnea, unspecified; F17.210 Nicotine dependence, cigarettes, uncomplicated
CPT/HCPCS: 94060; 94640; 94727; 94729

== ENCOUNTER → 2025-09-08 08:03 | Outpatient (BNV) | payer MEDICAID, SELFPAY | PROVIDERS: PCP Registered Nurse; Visit Provider Internal Medicine Pulmonary Disease | DX: R06.00 Dyspnea, unspecified (principal) | CPT/HCPCS: 94060; 94727; 94729 ==